=== PATIENT | female | born 1975 | race Caucasian/White ===

== ENCOUNTER 2023-10-23 10:30 | Outpatient (OUT) | payer OTHER, SELFPAY ==
[2023-10-23 10:55] LABS: SARS-CoV-2 Ag NEGATIVE (NEGATIVE)
== END 2023-10-23 10:31 ==
LOC: LAB 10-28 11:28
PROVIDERS: PCP Family Medicine; Visit Provider Family Medicine
DX: J20.9 Acute bronchitis, unspecified (principal)
CPT/HCPCS: 87635; 87811

== ENCOUNTER 2023-11-30 14:44 | Outpatient (OUT) | payer OTHER, SELFPAY ==
[2023-11-30 15:06] LABS: Basophils Percent Auto 0.5 % (0.2-2.0); Eosinophils Absolute Auto 0.1 10^3/uL (0.0-0.7); Eosinophils Percent Auto 1.2 % (0.9-7.0); Hematocrit 49.1 % (36.0-48.0); Hemoglobin 16.1 g/dL (12.0-16.0); Immature Granulocytes Abs Auto 0.03 10^3/uL (0.00-0.03); Immature Granulocytes Pct Auto 0.4 % (0.0-0.5); Lymphocytes Absolute Auto 2.7 10^3/uL (1.2-3.8); Lymphocytes Percent Auto 36.5 % (20.5-60.0); Mean Corpuscular HGB Conc 32.8 g/dL (29.9-35.2); Mean Corpuscular Hemoglobin 31.9 pg (26.7-34.0); Mean Corpuscular Volume 97.2 fL (81.0-99.0); Mean Platelet Volume 11.1 fL (9.5-13.5); Monocytes Absolute Auto 0.6 10^3/uL (0.3-0.8); Monocytes Percent Auto 7.7 % (1.7-12.0); Neutrophils Percent Auto 53.7 % (43.0-75.0); Platelet Count 142 10^3/uL (150-450); Red Blood Count 5.05 10^6/uL (4.20-5.40); Red Cell Distribution Width 13.2 % (11.0-15.0); White Blood Count 7.5 10^3/uL (4.0-11.0)
[2023-11-30 15:30] LABS: Estimated Average Glucose 120 mg/dL; Glycohemoglobin A1C 5.8 % (4.5-6.2)
[2023-11-30 15:36] LABS: Alanine Aminotransferase 43 U/L (14-59); Albumin Globulin Ratio 0.9; Albumin Level 3.5 g/dL (3.4-5.0); Alkaline Phosphatase 74 U/L (46-116); Anion Gap 13.4; Aspartate Amino Transferase 19 U/L (15-37); BUN Creatinine Ratio 24.5; Bilirubin Total 0.3 mg/dL (0.2-1.0); Calcium 8.9 mg/dL (8.5-10.1); Carbon Dioxide 26.1 mmol/L (21.0-32.0); Chloride 103 mmol/L (98-107); Chol HDL Ratio 4.5; Cholesterol 143 mg/dL (<=200); Estimated GFR (African America >60 (>=60); Estimated GFR (Non-African Ame 57 (>=60); Free T3 1.53 pg/mL (2.18-3.98); Globulin 4.1 g/dL; Glucose 82 mg/dL (74-106); HDL Cholesterol 32 mg/dL (40-60); Potassium 4.5 mmol/L (3.5-5.1); Sodium 138 mmol/L (136-145); Thyroid Stimulating Hormone 3.211 uIU/mL (0.358-3.740); Total Protein 7.6 g/dL (6.4-8.2); Triglycerides 220 mg/dL (<=150)
== END 2023-11-30 14:45 | disposition home or self-care (01) ==
PROVIDERS: PCP Family Medicine; Visit Provider Family Medicine
DX: Z00.00 Encounter for general adult medical examination without abnormal findings (principal)
CPT/HCPCS: 36415; 80053; 80061; 83036; 84436; 84443; 84481; 85025

== ENCOUNTER 2023-12-03 10:21 | Outpatient (REF) | payer OTHER, SELFPAY ==
--- OUTSIDE RECORDS SUMMARY | 2023-12-04 10:42 | XMS_ITS | CCD ---
Author Name Unknown Address [address] [place] [address] Organization [facility] Care Team Providers Care Optical Glass Etcher Name Role Phone Unavailable Unavailable Rocío Maza Unavailable Sukh Anderson Referring Unavailable Sukh Anderson Attending Unavailable Dr. Rocío Maza Primary Care Unavail able DAYNA PICKARD Primary Care Unavailable DAYNA PICKARD Consulting Unavailable DAYNA PICKARD Attending Unavailable DAYNA PICKARD Admitting Unavailable HOY ., DR ALFORD Consulting Unavailable HOY ., DR ALFORD Admitting Unavailable HOY ., DR ALFORD Attending Unavailable HOY ., DR ALFORD Primary Care Unavailable ZIEBSAMANTHA, DR MARY KATE Hernandez Consulting Unavailable HOY ., DR ALFORD Primary Care Unavailable HOY ., DR ALFORD Consulting Unavailable HOY ., DR ALFORD Attending Unavailable HOY ., DR ALFORD Admstephanie Unavailable HOY ., DR ALFORD Consulting Unavailable HOY ., DR ALFORD Admstephanie Unavailable HOY ., DR ALFORD Attending Unavailable HOY ., DR ALFORD Primary Care Unavailable HOY ., DR ALFORD Consulting Unavailable HOY ., DR ALFORD Attending Unavailable HOY ., DR ALFORD Admstephanie Unavailable HOY ., DR ALFORD Primary Care Unavailable HOY ., DR ALFORD Consulting Unavailable DAYNA PICKARD Primary Care Unavailable HOY ., DR ALFORD Admitting Unavailable HOY ., DR ALFORD Attending Unavailable ZIEBER, DR MARY KATE Hernandez Consulting Unavailable HAY ., DR MCLEAN Consulting Unavailable SHAIKH Tai DANG Consulting Unavailable KRYS DALLAS Consulting Unavailable ANJEL ., DR ALFORD Primary Care Unavailable HOY ., DR ALFORD Consulting Unavailable HOY ., DR ALFORD Attending Unavailable HOY ., DR ALFORD Admitting Unavailable HOY ., DR ALFORD Primary Care Unavailable ANJEL ., DR ALFORD Consulting Unavailable ANJEL ., DR ALFORD Attending Unavailable ANJEL ., DR ALFORD Admitting Unavailable ANJEL ., DR ALFORD Consulting Unavailable ANJEL ., DR ALFORD Admitting Unavailable ANJEL ., DR ALFORD Attending Unavailable ANJEL ., DR ALFORD Primary Care Unavailable Medications Completed/Discontinued Medications Medication Drug Class(es) Dates Sig (Normalized) Sig (Original) aspirin 81 mg delayed release oral tablet (20 sources) Platelet Aggregation Inhibitor, Nonsteroidal Anti-inflammator y Drug Start: 1 take 1 tablet by mouth once daily Aspirin Low Dose 81 MG Oral Tablet Delayed Release Take 1 tablet daily Quantity: 90 Refills: 3 Ordered: 28-Jan-2023 Tiffany Shelby MD Start : 07-Nov-2021 Active atorvastatin 80 mg oral tablet (6 sources) HMG-CoA Reductase Inhibitor Start: 1 take 1 tablet by mouth once daily Atorvastatin Calcium 80 MG Oral Tablet TAKE 1 TABLET BY MOUTH EVERY NIGHT Quantity: 30 Refills: 0 Ordered: 30-Jan-2022 DO Start : 04-Sep-2021 Active citalopram 20 mg oral tablet (6 sources) Serotonin Reuptake Inhibitor Start: 2 take 1 tablet by mouth once daily Citalopram Hydrobromide 20 MG Oral Tablet TAKE 1 TABLET BY MOUTH ONCE DAILY Quantity: 30 Refills: 0 Ordered: 28-Feb-2022 DO Start : 01-Jan-2022 Active clopidogrel 75 mg oral tablet (7 sources) P2Y12 Platelet Inhibitor Start: 1 take 1 tablet by mouth once daily Clopidogrel Bisulfate 75 MG Oral Tablet TAKE 1 TABLET BY MOUTH ONCE DAILY *EMERGENCY REFILL* Quantity: 90 Refills: 0 Ordered: 28-Oct-2022 Sukh Anderson DO Start : 03-Sep-2021 Active hydroCHLOROthiazide 25 mg oral tablet (6 sources) Thiazide Diuretic Start: 2 take 1 tablet by mouth once daily hydroCHLOROthiazide 25 MG Oral Tablet TAKE 1 TABLET DAILY. Quantity: 90 Refills: 3 Ordered: 01-Apr-2022 DO Start : 01-Apr-2022 Active lisinopril 40 mg oral tablet (12 sources) Angiotensin Converting Enzyme Inhibitor Start: 1 take 1 tablet by mouth once daily Lisinopril 40 MG Oral Tablet take 1 tablet by mouth once daily Quantity: 90 Refills: 3 Ordered: 30-Dec-2022 Sukh Anderson DO Start : 03-Sep-2021 Active pantoprazole 40 mg delayed release oral tablet (6 sources) Proton Pump Inhibitor Start: 2 take 1 tablet by mouth once daily Pantoprazole Sodium 40 MG Oral Tablet Delayed Release TAKE 1 TABLET DAILY. Quantity: 90 Refills: 3 Ordered: 01-Apr-2022 DO Start : 01-Apr-2022 Active varenicline 0.5 mg oral tablet (6 sources) Partial Cholinergic Nicotinic Agonist Chantix 0.5 MG TABS TAKE 1 TABLET DAILY. Quantity: 0 Refills: 0 Ordered: 18-Dec-2022 DO Active Problems Active Problems Problem Classification Problem Date Documented Date Episodic/Chronic Allergic reactions (13 sources) H/O: Disorder; Translations: [Personal history of allergy to other specified medicinal agents] Episodic Anxiety disorders (13 sources) Anxiety; Translations: [Anxiety state, unspecified] Chronic Coronary atherosclerosis and other heart disease (20 sources) Coronary arteriosclerosis; Translations: [Coronary atherosclerosis of unspecified type of vessel, [place] or graft] Chronic Deficiency and other anemia (1 source) Anemia, unspecified; Translations: [ANEMIA UNSPECIFIED] Onset: 3 Episodic Diabetes mellitus without complication (1 source) Type 2 diabetes mellitus without complications; Translations: [TYPE 2 DM WITHOUT COMPLICATIONS] Onset: 3 Chronic Disorders of lipid metabolism (14 sources) Hyperlipidemia; Translations: [Other and unspecified hyperlipidemia] Onset: 2 Chronic E Codes: Adverse effects of medical drugs (2 sources) Adverse effect of carbonic-anhydrase inhibitors, benzothiadiazides and other diuretics, initial encounter; Translations: [Adverse effect of other drugs, medicaments and biological substances, initial encounter] Onset: 3 Episodic Essential hypertension (14 sources) Hypertensive disorder; Translations: [Unspecified essential hypertension] Onset: 3 Chronic Fluid and electrolyte disorders (4 sources) Hypokalemia; Translations: [HYPOKALEMIA] Onset: 3 Episodic Malaise and fatigue (1 source) Other fatigue; Translations: [OTHER FATIGUE] Onset: 3 Episodic Nutritional deficiencies (1 source) Vitamin D deficiency, unspecified; Translations: [VITAMIN D DEFICIENCY UNSPECIFIED] Onset: 2 Chronic Other aftercare (1 source) residential (current) use of aspirin; Translations: [BELTING INSPECTOR CURRENT USE OF ASPIRIN] Onset: 3 Episodic Other aftercare (1 source) Other joint terminal attack controller (current) drug therapy; Translations: [OTH RESIDENTIAL CURRENT DRUG THERAPY] Onset: 3 Episodic Other aftercare (1 source) long term care pharmacist (current) use of oral hypoglycemic drugs; Translations: [BELTING INSPECTOR USE ORAL HYPOGLYCEMIC DX] Onset: 3 Episodic Other connective tissue disease (1 source) Muscle weakness (generalized); Translations: [MUSCLE WEAKNESS GENERALIZED] Onset: 3 Episodic Other lower respiratory disease (1 source) Personal history of pneumonia (recurrent); Translations: [PERSONAL HX OF PNEUMONIA RECURRENT] Onset: 3 Episodic Other nutritional; endocrine; and metabolic disorders (13 sources) Obesity; Translations: [Obesity, unspecified] Chronic Other nutritional; endocrine; and metabolic disorders (1 source) Hypomagnesemia; Translations: [HYPOMAGNESEMIA] Onset: 3 Chronic Other nutritional; endocrine; and metabolic disorders (1 source) Obesity, unspecified; Translations: [OBESITY UNSPECIFIED] Onset: 3 Chronic Other nutritional; endocrine; and metabolic disorders (1 source) Body mass index (BMI) 33.0-33.9, adult; Translations: [BODY MASS INDEX BMI 33.0-33.9 ADULT] Onset: 3 Chronic Residual codes; unclassified (4 sources) Pain, unspecified; Translations: [PAIN UNSPECIFIED] Onset: 3 Episodic Substance-related disorders (7 sources) Smokes tobacco daily; Translations: [Tobacco use disorder] Onset: 3 Chronic Comment on above: 1/ PPD; Unclassified (4 sources) CONTACT W/AND (SUSP) EXPOS COVID-19; Translations: [CONTACT W/AND (SUSP) EXPOS COVID-19] Onset: 2 Unclassified (3 sources) COUGH, UNSPECIFIED; Translations: [COUGH, UNSPECIFIED] Onset: 2 Past or Other Problems Problem Classification Problem Date Documented Da te Episodic/Chronic Other non-traumatic joint disorders (4 sources) Pain in left hip; Translations: [PAIN IN LEFT HIP] Onset: 10-09-2022 Episodic Other non-traumatic joint disorders (1 source) Pain in right hip; Translations: [PAIN IN RIGHT HIP] Onset: 10-16-2022 Episodic Other screening for suspected conditions (not mental disorders or infectious disease) (1 source) Encounter for screening for malignant neoplasm of rectum; Translations: [ENC SCREEN MALIG NEOPLASM RECTUM] Onset: 09-20-2022 Episodic Unclassified (1 source) CONTACT W/AND (SUSP) EXPOS COVID-19; Translations: [CONTACT W/AND (SUSP) EXPOS COVID-19] Onset: 06-16-2022 Unclassified (1 source) COUGH, UNSPECIFIED; Translations: [COUGH, UNSPECIFIED] Onset: 05-05-2022 Results Test Name Value Interpretation Reference Range Facility MAGNESIUMon 02-23-2023 Magnesium [Mass/Vol] 2.2 mg/dL Normal 1.8-2.4 [facility] Comment on above: Performed By: #### M Alvin, CMP #### [facility] [address] [address] [address] Alysa Martinez PROF 14(COMP METB)on 023 Albumin [Mass/Vol] 3.2 g/dL Critically low 3.4-5.[address] [facility] Comment on above: Performed By: #### M Alvin, CMP #### [facility] [address] [address] [address] Alysa Martinez Albumin/Globulin [Mass ratio] 0.8 {ratio} Normal [facility] Comment on above: Performed By: #### M Alvin, CMP #### [facility] [address] [address] [address] Alysa Martinez ALP [Catalytic activity/Vol] 74 U/L Normal 46-116 [facility] Comment on above: Performed By: #### M G, CMP #### [facility] [address] [address] [address] Alysa Martinez ALT [Catalytic activity/Vol] 43 U/L Normal 14-59 [facility] Comment on above: Performed By: #### M Alvin, CMP #### [facility] [address] [address] [address] Alysa Martinez Anion gap [Moles/Vol] 10.9 mmol/L Normal [facility] Comment on above: Performed By: #### M G, CMP #### [facility] [address] [address] [address] Alysa Martinez AST [Catalytic activity/Vol] 22 U/L Normal 15-37 [facility] Comment on above: Performed By: #### M G, CMP #### [facility] [address] [address] [address] Alysa Martinez Bilirubin [Mass/Vol] 0.3 mg/dL Normal 0.2-1.0 [facility] Comment on above: Performed By: #### M G, CMP #### [facility] [address] [place] [address] Dr. Alysa Martinez Calcium [Mass/Vol] 8.6 mg/dL Normal 8.5-10.1 [facility] Comment on above: Performed By: #### M G, CMP #### [facility] [address] [address] [address] Alysa Martinez Chloride [Moles/Vol] 102 mmol/L Normal 98-107 [facility] Comment on above: Performed By: #### M G, CMP #### [facility] [address] [place] [address] Dr. Alysa Martinez CO2 [Moles/Vol] 30.0 mmol/L Normal 21.0-32.0 [facility] Comment on above: Performed By: #### M G, CMP #### [facility] [address] [place] [address] Dr. Alysa Martinez Creatinine [Mass/Vol] 0.89 mg/dL Normal 0.55-1.02 [facility] Comment on above: Performed By: #### M G, CMP #### [facility] [address] [place] [address] Dr. Alysa Martinez EGFR-AF QATARI >60 Normal >=60 [facility] Comment on above: Performed By: #### M G, CMP #### [facility] [address] [address] [address] Alysa Martinez EGFR-NON AF QATARI >60 Normal >=60 [facility] Comment on above: Performed By: #### M G, CMP #### [facility] [address] [address] [address] Alysa Martinez Globulin (S) [Mass/Vol] 4.0 g/dL Normal [facility] Comment on above: Performed By: #### M G, CMP #### [facility] [address] [address] [address] Alysa Martinez Glucose [Mass/Vol] 144 mg/dL Critically high 74-106 [facility] Comment on above: Performed By: #### M G, CMP #### [facility] [address] [address] [address] Alysa Martinez Potassium [Moles/Vol] 3.9 mmol/L Normal 3.5-5.1 [facility] Comment on above: Performed By: #### M G, CMP #### [facility] [address] [place] [address] Dr. Alysa Martinez Protein [Mass/Vol] 7.2 g/dL Normal 6.4-8.2 [facility] Comment on above: Performed By: #### M G, CMP #### [facility] [address] [address] [address] Alysa Martinez Sodium [Moles/Vol] 139 mmol/L Normal 136-145 [facility] Comment on above: Performed By: #### M G, CMP #### [facility] [address] [place] [address] Dr. Alysa Martinez Urea nitrogen [Mass/Vol] 14.0 mg/dL Normal 7.0-18.0 [facility] Comment on above: Performed By: #### M G, CMP #### [facility] [address] [place] [address] Dr. Alysa Martinez Urea nitrogen/Creatinine [Mass ratio] 15.7 mg/mg Normal [facility] Comment on above: Performed By: #### M G, CMP #### [facility] [address] [address] [address] Alysa Martinez MAGNESIUMon 02-16-2023 Magnesium [Mass/Vol] 2.1 mg/dL Normal 1.8-2.4 [facility] Comment on above: Performed By: #### M G, CMP #### [facility] [address] [address] [address] Alysa Martinez PROF 14(COMP METB)on 023 Albumin [Mass/Vol] 3.3 g/dL Critically low 3.4-5.0 [facility] Comment on above: Performed By: #### P HOS, BMP, MG #### [facility] [address] [place] [address] Dr. Alysa Martinez Albumin/Globulin [Mass ratio] 0.8 {ratio} Normal [facility] Comment on above: Performed By: #### P HOS, BMP, MG #### [facility] [address] [place] [address] Dr. Alysa Martinez ALP [Catalytic activity/Vol] 74 U/L Normal 46-116 [facility] Comment on above: Performed By: #### P HOS, BMP, MG #### [facility] [address] [address] [address] Alysa Martinez ALT [Catalytic activity/Vol] 46 U/L Normal 14-59 [facility] Comment on above: Performed By: #### P HOS, BMP, MG #### [facility] [address] [address] [address] Alysa Martinez Anion gap [Moles/Vol] 12.4 mmol/L Normal [facility] Comment on above: Performed By: #### P HOS, BMP, MG #### [facility] [address] [address] [address] Alysa Martinez AST [Catalytic activity/Vol] 21 U/L Normal 15-37 [facility] Comment on above: Performed By: #### P HOS, BMP, MG #### [facility] [address] [place] [address] Dr. Alysa Martinez Bilirubin [Mass/Vol] 0.3 mg/dL Normal 0.2-1.0 [facility] Comment on above: Performed By: #### P HOS, BMP, MG #### [facility] [address] [place] [address] Dr. lAysa Martinez Calcium [Mass/Vol] 9.2 mg/dL Normal 8.5-10.1 [facility] Comment on above: Performed By: #### P HOS, BMP, MG #### [facility] [address] [place] [address] Dr. Alysa Martinez Chloride [Moles/Vol] 100 mmol/L Normal 98-107 [facility] Comment on above: Performed By: #### P HOS, BMP, MG #### [facility] [address] [place] [address] Dr. Alysa Martinez CO2 [Moles/Vol] 30.9 mmol/L Normal 21.0-32.0 [facility] Comment on above: Performed By: #### P HOS, BMP, MG #### [facility] [address] [place] [address] Dr. Alysa Martinez Creatinine [Mass/Vol] 0.98 mg/dL Normal 0.55-1.02 [facility] Comment on above: Performed By: #### P HOS, BMP, MG #### [facility] [address] [place] [address] Dr. Alysa Martinez EGFR-AF QATARI >60 Normal >=60 [facility] Comment on above: Performed By: #### P HOS, BMP, MG #### [facility] [address] [place] [address] Dr. Alysa Martinez EGFR-NON AF QATARI 60 mL/min/1.73m2 Normal >=60 [facility] Comment on above: Performed By: #### P HOS, BMP, MG #### [facility] [address] [place] [address] Dr. Alysa Martinez Globulin (S) [Mass/Vol] 3.9 g/dL Normal [facility] Comment on above: Performed By: #### P HOS, BMP, MG #### [facility] [address] [place] [address] Dr. Alysa Martinez Glucose [Mass/Vol] 106 mg/dL Normal 74-106 [facility] Comment on above: Performed By: #### P HOS, BMP, MG #### [facility] [address] [place] [address] Dr. Alysa Martinez Potassium [Moles/Vol] 4.3 mmol/L Normal 3.5-5.1 [facility] Comment on above: Performed By: #### P HOS, BMP, MG #### [facility] [address] [address] [address] Alysa Martinez Protein [Mass/Vol] 7.2 g/dL Normal 6.4-8.2 [facility] Comment on above: Performed By: #### P HOS, BMP, MG #### [facility] [address] [place] [address] Dr. Alysa Martinez Sodium [Moles/Vol] 139 mmol/L Normal 136-145 [facility] Comment on above: Performed By: #### P HOS, BMP, MG #### [facility] [address] [place] [address] Dr. Alysa Martinez Urea nitrogen [Mass/Vol] 15.0 mg/dL Normal 7.0-18.0 [facility] Comment on above: Performed By: #### P HOS, BMP, MG #### [facility] [address] [place] [address] Dr. Alysa Martinez Urea nitrogen/Creatinine [Mass ratio] 15.3 mg/mg Normal [facility] Comment on above: Performed By: #### P HOS, BMP, MG #### [facility] [address] [place] [address] Dr. Alysa Martinez MAGNESIUMon 02-02-2023 Magnesium [Mass/Vol] 1.5 mg/dL Critically low 1.8-2.4 [facility] Comment on above: Performed By: #### R F #### [facility] [address] [place] [address] Dr. Alysa Martinez PROF 14(COMP METB)on 023 Albumin [Mass/Vol] 3.4 g/dL Normal 3.4-5.0 [facility] Comment on above: Performed By: #### R F #### [facility] [address] [place] [address] Dr. Alysa Martinez Albumin/Globulin [Mass ratio] 0.8 {ratio} Normal [facility] Comment on above: Performed By: #### R F #### [facility] [address] [place] [address] Dr. Alysa Martinez ALP [Catalytic activity/Vol] 77 U/L Normal 46-116 [facility] Comment on above: Performed By: #### R F #### [facility] [address] [place] [address] Dr. Alysa Martinez ALT [Catalytic activity/Vol] 37 U/L Normal 14-59 [facility] Comment on above: Performed By: #### R F #### [facility] [address] [place] [address] Dr. Alysa Martinez Anion gap [Moles/Vol] 12.5 mmol/L Normal [facility] Comment on above: Performed By: #### R F #### [facility] [address] [place] [address] Dr. Alysa Martinez AST [Catalytic activity/Vol] 19 U/L Normal 15-37 [facility] Comment on above: Performed By: #### R F #### [facility] [address] [place] [address] Dr. Alysa Martinez Bilirubin [Mass/Vol] 0.3 mg/dL Normal 0.2-1.0 [facility] Comment on above: Performed By: #### R F #### [facility] [address] [place] [address] Dr. Alysa Martinez Calcium [Mass/Vol] 9.5 mg/dL Normal 8.5-10.1 [facility] Comment on above: Performed By: #### R F #### [facility] [address] [place] [address] Dr. Alysa Martinez Chloride [Moles/Vol] 100 mmol/L Normal 98-107 [facility] Comment on above: Performed By: #### R F #### [facility] [address] [address] [address] Alysa Martinez CO2 [Moles/Vol] 26.8 mmol/L Normal 21.0-32.0 [facility] Comment on above: Performed By: #### R F #### [facility] [address] [place] [address] Dr. Alysa Martinez Creatinine [Mass/Vol] 1.15 mg/dL Critically high 0.55-1.02 [facility] Comment on above: Performed By: #### R F #### [facility] [address] [place] [address] Dr. Alysa Martinez EGFR-AF QATARI >60 Normal >=60 [facility] Comment on above: Performed By: #### R F #### [facility] [address] [place] [address] Dr. Alysa Martinez EGFR-NON AF QATARI 50 mL/min/1.73m2 Critically low >=60 [facility] Comment on above: Performed By: #### R F #### [facility] [address] [place] [address] Dr. Alysa Martinez Globulin (S) [Mass/Vol] 4.1 g/dL Normal [facility] Comment on above: Performed By: #### R F #### [facility] [address] [place] [address] Dr. Alysa Martinez Glucose [Mass/Vol] 128 mg/dL Critically high 74-106 [facility] Comment on above: Performed By: #### R F #### [facility] [address] [place] [address] Dr. Alysa Martinez Potassium [Moles/Vol] 4.3 mmol/L Normal 3.5-5.1 [facility] Comment on above: Performed By: #### R F #### [facility] [address] [place] [address] Dr. Alysa Martinez Protein [Mass/Vol] 7.5 g/dL Normal 6.4-8.2 [facility] Comment on above: Performed By: #### R F #### [facility] [address] [place] [address] Dr. Alysa Martinez Sodium [Moles/Vol] 135 mmol/L Critically low 136-[address] [facility] Comment on above: Performed By: #### R F #### [facility] [address] [place] [address] Dr. Alysa Martinez Urea nitrogen [Mass/Vol] 26.0 mg/dL Critically high 7.0-18.0 [facility] Comment on above: Performed By: #### R F #### [facility] [address] [place] [address] Dr. Alysa Martinez Urea nitrogen/Creatinine [Mass ratio] 22.6 mg/mg Normal [facility] Comment on above: Performed By: #### R F #### [facility] [address] [place] [address] Dr. Alysa Martinez MAGNESIUMon 01-23-2023 Magnesium [Mass/Vol] 2.6 mg/dL Critically high 1.8-2.4 [facility] Comment on above: Performed By: #### M G, CMP #### [facility] [address] [place] [address] Dr. Alysa Martinez PROF 14(COMP METB)on 023 Albumin [Mass/Vol] 3.6 g/dL Normal 3.4-5.0 [facility] Comment on above: Performed By: #### M G, CMP #### [facility] [address] [place] [address] Dr. Alysa Martinez Albumin/Globulin [Mass ratio] 0.9 {ratio} Normal [facility] Comment on above: Performed By: #### M G, CMP #### [facility] [address] [place] [address] Dr. Alysa Martinez ALP [Catalytic activity/Vol] 79 U/L Normal 46-116 [facility] Comment on above: Performed By: #### M G, CMP #### [facility] [address] [place] [address] Dr. Alysa Martinez ALT [Catalytic activity/Vol] 35 U/L Normal 14-59 [facility] Comment on above: Performed By: #### M G, CMP #### [facility] [address] [address] [address] Alysa Martinez Anion gap [Moles/Vol] 13.4 mmol/L Normal [facility] Comment on above: Performed By: #### M G, CMP #### [facility] [address] [address] [address] Alysa Martinez AST [Catalytic activity/Vol] 18 U/L Normal 15-37 [facility] Comment on above: Performed By: #### M G, CMP #### [facility] [address] [address] [address] Alysa Martinez Bilirubin [Mass/Vol] 0.2 mg/dL Normal 0.2-1.0 [facility] Comment on above: Performed By: #### M G, CMP #### [facility] [address] [place] [address] Dr. Alysa Martinez Calcium [Mass/Vol] 8.9 mg/dL Normal 8.5-10.1 [facility] Comment on above: Performed By: #### M G, CMP #### [facility] [address] [place] [address] Dr. Alysa Martinez Chloride [Moles/Vol] 98 mmol/L Normal 98-107 [facility] Comment on above: Performed By: #### M G, CMP #### [facility] [address] [place] [address] Dr. Alysa Martinez CO2 [Moles/Vol] 27.6 mmol/L Normal 21.0-32.0 [facility] Comment on above: Performed By: #### M G, CMP #### [facility] [address] [place] [address] Dr. Alysa Martinez Creatinine [Mass/Vol] 0.86 mg/dL Normal 0.55-1.02 [facility] Comment on above: Performed By: #### M G, CMP #### [facility] [address] [place] [address] Dr. Alysa Martinez EGFR-AF QATARI >60 Normal >=60 [facility] Comment on above: Performed By: #### M G, CMP #### [facility] [address] [address] [address] Alysa Martinez EGFR-NON AF QATARI >60 Normal >=60 [facility] Comment on above: Performed By: #### M G, CMP #### [facility] [address] [address] [address] Alysa Martinez Globulin (S) [Mass/Vol] 4.0 g/dL Normal [facility] Comment on above: Performed By: #### M G, CMP #### [facility] [address] [address] [address] Alysa Martinez Glucose [Mass/Vol] 112 mg/dL Critically high 74-106 [facility] Comment on above: Performed By: #### M G, CMP #### [facility] [address] [address] [address] Alysa Martinez Potassium [Moles/Vol] 5.0 mmol/L Normal 3.5-5.1 [facility] Comment on above: Performed By: #### M G, CMP #### [facility] [address] [place] [address] Dr. Alysa Martinez Protein [Mass/Vol] 7.6 g/dL Normal 6.4-8.2 [facility] Comment on above: Performed By: #### M G, CMP #### [facility] [address] [place] [address] Dr. Alysa Martinez Sodium [Moles/Vol] 134 mmol/L Critically low 136-[address] [facility] Comment on above: Performed By: #### M G, CMP #### [facility] [address] [place] [address] Dr. Alysa Martinez Urea nitrogen [Mass/Vol] 17.0 mg/dL Normal 7.0-18.0 [facility] Comment on above: Performed By: #### M G, CMP #### [facility] [address] [place] [address] Dr. Alysa Martinez Urea nitrogen/Creatinine [Mass ratio] 19.8 mg/mg Normal [facility] Comment on above: Performed By: #### M G, CMP #### [facility] [address] [place] [address] Dr. Alysa Martinez MAGNESIUMon 01-16-2023 Magnesium [Mass/Vol] 1.7 mg/dL Critically low 1.8-2.4 [facility] Comment on above: Performed By: #### R F #### [facility] [address] [place] [address] Dr. Alysa Martinez PROF 14(COMP METB)on 023 Albumin [Mass/Vol] 3.1 g/dL Critically low 3.4-5.0 [facility] Comment on above: Performed By: #### R F #### [facility] [address] [place] [address] Dr. Alysa Martinez Albumin/Globulin [Mass ratio] 0.9 {ratio} Normal [facility] Comment on above: Performed By: #### R F #### [facility] [address] [place] [address] Dr. Alysa Martinez ALP [Catalytic activity/Vol] 69 U/L Normal 46-116 [facility] Comment on above: Performed By: #### R F #### [facility] [address] [place] [address] Dr. Alysa Martinez ALT [Catalytic activity/Vol] 46 U/L Normal 14-59 [facility] Comment on above: Performed By: #### R F #### [facility] [address] [place] [address] Dr. Alysa Martinez Anion gap [Moles/Vol] 10.0 mmol/L Normal [facility] Comment on above: Performed By: #### R F #### [facility] [address] [place] [address] Dr. Alysa Martinez AST [Catalytic activity/Vol] 29 U/L Normal 15-37 [facility] Comment on above: Performed By: #### R F #### [facility] [address] [place] [address] Dr. Alysa Martinez Bilirubin [Mass/Vol] 0.3 mg/dL Normal 0.2-1.0 [facility] Comment on above: Performed By: #### R F #### [facility] [address] [address] [address] Alysa Martinez Calcium [Mass/Vol] 8.9 mg/dL Normal 8.5-10.1 [facility] Comment on above: Performed By: #### R F #### [facility] [address] [address] [address] Alysa Martinez Chloride [Moles/Vol] 103 mmol/L Normal 98-107 [facility] Comment on above: Performed By: #### R F #### [facility] [address] [place] [address] Dr. Alysa Martinez CO2 [Moles/Vol] 32.5 mmol/L Critically high 21.0-32.0 [facility] Comment on above: Performed By: #### R F #### [facility] [address] [place] [address] Dr. Alysa Martinez Creatinine [Mass/Vol] 0.85 mg/dL Normal 0.55-1.02 [facility] Comment on above: Performed By: #### R F #### [facility] [address] [place] [address] Dr. Alysa Martinez EGFR-AF QATARI >60 Normal >=60 [facility] Comment on above: Performed By: #### R F #### [facility] [address] [place] [address] Dr. Alysa Martinez EGFR-NON AF QATARI >60 Normal >=60 [facility] Comment on above: Performed By: #### R F #### [facility] [address] [address] [address] Alysa Martinez Globulin (S) [Mass/Vol] 3.5 g/dL Normal [facility] Comment on above: Performed By: #### R F #### [facility] [address] [place] [address] Dr. Alysa Martinez Glucose [Mass/Vol] 97 mg/dL Normal 74-106 [facility] Comment on above: Performed By: #### R F #### [facility] [address] [place] [address] Dr. Alysa Martinez Potassium [Moles/Vol] 3.5 mmol/L Normal 3.5-5.1 [facility] Comment on above: Performed By: #### R F #### [facility] [address] [place] [address] Dr. Alysa Martinez Protein [Mass/Vol] 6.6 g/dL Normal 6.4-8.2 [facility] Comment on above: Performed By: #### R F #### [facility] [address] [address] [address] Alysa Martinez Sodium [Moles/Vol] 142 mmol/L Normal 136-145 [facility] Comment on above: Performed By: #### R F #### [facility] [address] [place] [address] Dr. Alysa Martinez Urea nitrogen [Mass/Vol] 12.0 mg/dL Normal 7.0-18.0 [facility] Comment on above: Performed By: #### R F #### [facility] [address] [place] [address] Dr. Alysa Martinez Urea nitrogen/Creatinine [Mass ratio] 14.1 mg/mg Normal [facility] Comment on above: Performed By: #### R F #### [facility] [address] [place] [address] Dr. Alysa Martinez CHLORIDE URINE RANDOMon 12-18 Chloride, Urine <20 Normal Not Estab. [facility] Comment on above: Performed By: #### P HOS, BMP, MG #### [facility] [address] [place], [place] [id number] Dr. Alysa Martinez MAGNESIUMon 01-13-2023 Magnesium [Mass/Vol] 2.1 mg/dL Normal 1.8-2.4 [facility] Comment on above: Performed By: #### R F #### [facility] [address] [place], [place] [id number] Dr. Alysa Martinez PHOSPHORUSon 01-13-2023 Phosphate [Mass/Vol] 3.7 mg/dL Normal 2.6-4.7 [facility] Comment on above: Performed By: #### R F #### [facility] [address] [address] [address] Alysa Martinez PROF CHEM 8 (BAS METB)on Anion gap [Moles/Vol] 12.3 mmol/L Normal [facility] Comment on above: Performed By: #### R F #### [facility] [address] [place] [address] Dr. Alysa Martinez Calcium [Mass/Vol] 7.6 mg/dL Critically low 8.5-10.1 [facility] Comment on above: Performed By: #### R F #### [facility] [address] [place] [address] Dr. Alysa Martinez Chloride [Moles/Vol] 106 mmol/L Normal 98-107 [facility] Comment on above: Performed By: #### R F #### [facility] [address] [place] [address] Dr. Alysa Martinez CO2 [Moles/Vol] 30.7 mmol/L Normal 21.0-32.0 [facility] Comment on above: Performed By: #### R F #### [facility] [address] [place] [address] Dr. Alysa Martinez Creatinine [Mass/Vol] 0.67 mg/dL Normal 0.55-1.02 [facility] Comment on above: Performed By: #### R F #### [facility] [address] [place] [address] Dr. Alysa Martinez EGFR-AF QATARI >60 Normal >=60 [facility] Comment on above: Performed By: #### R F #### [facility] [address] [place] [address] Dr. Alysa Martinez EGFR-NON AF QATARI >60 Normal >=60 [facility] Comment on above: Performed By: #### R F #### [facility] [address] [place] [address] Dr. Alysa Martinez Glucose [Mass/Vol] 125 mg/dL Critically high 74-106 [facility] Comment on above: Performed By: #### R F #### [facility] [address] [place] [address] Dr. Alysa Martinez Potassium [Moles/Vol] 3.0 mmol/L Critically low 3.5-5.1 [facility] Comment on above: Performed By: #### R F #### [facility] [address] [address] [address] Alysa Martinez Sodium [Moles/Vol] 146 mmol/L Critically high 136-145 [facility] Comment on above: Performed By: #### R F #### [facility] [address] [address] [address] Alysa Martinez Urea nitrogen [Mass/Vol] 9.0 mg/dL Normal 7.0-18.0 [facility] Comment on above: Performed By: #### R F #### [facility] [address] [place] [address] Dr. Alysa Martinez Urea nitrogen/Creatinine [Mass ratio] 13.4 mg/mg Normal [facility] Comment on above: Performed By: #### R F #### [facility] [address] [place] [address] Dr. Alysa Martinez Anion gap [Moles/Vol] 9.9 mmol/L Normal [facility] Comment on above: Performed By: #### B MP #### [facility] [address] [place] [address] Dr. Alysa Martinez Calcium [Mass/Vol] 7.5 mg/dL Critically low 8.5-10.1 [facility] Comment on above: Performed By: #### B MP #### [facility] [address] [place] [address] Dr. Alysa Martinez Chloride [Moles/Vol] 103 mmol/L Normal 98-107 [facility] Comment on above: Performed By: #### B MP #### [facility] [address] [place] [address] Dr. Alysa Martinez CO2 [Moles/Vol] 31.7 mmol/L Normal 21.0-32.0 [facility] Comment on above: Performed By: #### B MP #### [facility] [address] [place] [address] Dr. Alysa Martinez Creatinine [Mass/Vol] 0.75 mg/dL Normal 0.55-1.02 [facility] Comment on above: Performed By: #### B MP #### [facility] [address] [address] [address] Alysa Martinez EGFR-AF QATARI >60 Normal >=60 [facility] Comment on above: Performed By: #### B MP #### [facility] [address] [address] [address] Alysa Martinez EGFR-NON AF QATARI >60 Normal >=60 [facility] Comment on above: Performed By: #### B MP #### [facility] [address] [address] [address] Alysa Martinez Glucose [Mass/Vol] 189 mg/dL Critically high 74-106 [facility] Comment on above: Performed By: #### B MP #### [facility] [address] [address] [address] Alysa Martinez Potassium [Moles/Vol] 2.6 mmol/L Critically low 3.5-5.1 [facility] Comment on above: Performed By: #### B MP #### [facility] [address] [address] [address] Alysa Martinez Sodium [Moles/Vol] 143 mmol/L Normal 136-145 [facility] Comment on above: Performed By: #### B MP #### [facility] [address] [address] [address] Alysa Martinez Urea nitrogen [Mass/Vol] 8.0 mg/dL Normal 7.0-18.0 [facility] Comment on above: Performed By: #### B MP #### [facility] [address] [address] [address] Alysa Martinez Urea nitrogen/Creatinine [Mass ratio] 10.7 mg/mg Normal [facility] Comment on above: Performed By: #### B MP #### [facility] [address] [address] [address] Alysa Martinez CAROLINE by IFAon 01-12-2023 Antinuclear Antibodies, IFA Negative Normal [facility] Comment on above: Result Comment: Nega tive <1:80 Borderline 1:80 Positive >1:80 ICAP nomenclature: AC-0 For more information about Hep-2 cell patterns use ANApatterns.org, the official website for the International Consensus on Antinuclear Antibody (CAROLINE) Patterns (ICAP). Performed By: #### P HOS, BMP, MG #### [facility] [address] [place] [address] Dr. Alysa Martinez MAGNESIUMon 01-12-2023 Magnesium [Mass/Vol] 2.4 mg/dL Normal 1.8-2.4 [facility] Comment on above: Performed By: #### P HOS, BMP, MG #### [facility] [address] [place] [address] Dr. Alysa Martinez PHOSPHORUSon 01-12-2023 Phosphate [Mass/Vol] 3.2 mg/dL Normal 2.6-4.7 [facility] Comment on above: Performed By: #### P HOS, BMP, MG #### [facility] [address] [place] [address] Dr. Alysa Martinez PROF CHEM 8 (BAS METB)on Anion gap [Moles/Vol] 9.9 mmol/L Normal [facility] Comment on above: Performed By: #### P HOS, BMP, MG #### [facility] [address] [place] [address] Dr. Alysa Martinez Calcium [Mass/Vol] 7.7 mg/dL Critically low 8.5-10.[address] [facility] Comment on above: Performed By: #### P HOS, BMP, MG #### [facility] [address] [place] [address] Dr. Alysa Martinez Chloride [Moles/Vol] 100 mmol/L Normal 98-107 [facility] Comment on above: Performed By: #### P HOS, BMP, MG #### [facility] [address] [place] [address] Dr. Alysa Martinez CO2 [Moles/Vol] 33.4 mmol/L Critically high 21.0-32.0 [facility] Comment on above: Performed By: #### P HOS, BMP, MG #### [facility] [address] [address] [address] Alysa Martinez Creatinine [Mass/Vol] 0.69 mg/dL Normal 0.55-1.02 [facility] Comment on above: Performed By: #### P HOS, BMP, MG #### [facility] [address] [address] [address] Alysa Martinez EGFR-AF QATARI >60 Normal >=60 [facility] Comment on above: Performed By: #### P HOS, BMP, MG #### [facility] [address] [address] [address] Alysa Martinez EGFR-NON AF QATARI >60 Normal >=60 [facility] Comment on above: Performed By: #### P HOS, BMP, MG #### [facility] [address] [address] [address] Alysa Martinez Glucose [Mass/Vol] 140 mg/dL Critically high 74-106 [facility] Comment on above: Performed By: #### P HOS, BMP, MG #### [facility] [address] [address] [address] Alysa Martinez Potassium [Moles/Vol] 2.3 mmol/L Critically low 3.5-5.1 [facility] Comment on above: Performed By: #### P HOS, BMP, MG #### [facility] [address] [address] [address] Alysa Martinez Sodium [Moles/Vol] 142 mmol/L Normal 136-145 [facility] Comment on above: Performed By: #### P HOS, BMP, MG #### [facility] [address] [address] [address] Alysa Martinez Urea nitrogen [Mass/Vol] 8.0 mg/dL Normal 7.0-18.0 [facility] Comment on above: Performed By: #### P HOS, BMP, MG #### [facility] [address] [address] [address] Alysa Martinez Urea nitrogen/Creatinine [Mass ratio] 11.6 mg/mg Normal [facility] Comment on above: Performed By: #### P HOS, BMP, MG #### [facility] [address] [address] [address] Alysa Martinez Anion gap [Moles/Vol] 8.0 mmol/L Normal [facility] Comment on above: Performed By: #### P HOS, BMP, MG #### [facility] [address] [address] [address] Alysa Martinez Calcium [Mass/Vol] 7.8 mg/dL Critically low 8.5-10.[address] [facility] Comment on above: Performed By: #### P HOS, BMP, MG #### [facility] [address] [place] [address] Dr. Alysa Martinez Chloride [Moles/Vol] 100 mmol/L Normal 98-107 [facility] Comment on above: Performed By: #### P HOS, BMP, MG #### [facility] [address] [place] [address] Dr. Alysa Martinez CO2 [Moles/Vol] 37.5 mmol/L Critically high 21.0-32.0 [facility] Comment on above: Performed By: #### P HOS, BMP, MG #### [facility] [address] [place] [address] Dr. Alysa Martinez Creatinine [Mass/Vol] 0.67 mg/dL Normal 0.55-1.02 [facility] Comment on above: Performed By: #### P HOS, BMP, MG #### [facility] [address] [place] [address] Dr. Alysa Martinez EGFR-AF QATARI >60 Normal >=60 [facility] Comment on above: Performed By: #### P HOS, BMP, MG #### [facility] [address] [place] [address] Dr. Alysa Martinez EGFR-NON AF QATARI >60 Normal >=60 [facility] Comment on above: Performed By: #### P HOS, BMP, MG #### [facility] [address] [place] [address] Dr. Alysa Martinez Glucose [Mass/Vol] 130 mg/dL Critically high 74-106 [facility] Comment on above: Performed By: #### P HOS, BMP, MG #### [facility] [address] [address] [address] Alysa Martinez Potassium [Moles/Vol] 1.5 mmol/L Critically low 3.5-5.1 [facility] Comment on above: Performed By: #### P HOS, BMP, MG #### [facility] [address] [address] [address] Alysa Martinez Sodium [Moles/Vol] 144 mmol/L Normal 136-145 [facility] Comment on above: Performed By: #### P HOS, BMP, MG #### [facility] [address] [address] [address] Alysa Martinez Urea nitrogen [Mass/Vol] 9.0 mg/dL Normal 7.0-18.0 [facility] Comment on above: Performed By: #### P HOS, BMP, MG #### [facility] [address] [place] [address] Dr. Alysa Martinez Urea nitrogen/Creatinine [Mass ratio] 13.4 mg/mg Normal [facility] Comment on above: Performed By: #### P HOS, BMP, MG #### [facility] [address] [place] [address] Dr. Alysa Martinez US KIDNEYS BLADDERon 01-12-2 023 US KIDNEYS BLADDER EXAMINATION: US KIDNEYS BLADDER HISTORY: shortness of breath or wheezing ; abnormal lab values COMPARISON: CT abdomen pelvis 12/18/2020 TECHNIQUE: Ultrasound examination was performed of the kidneys and urinary bladder. FINDINGS: RIGHT KIDNEY: 2.4 cm benign-appearing cyst within superior pole; unchanged. No evidence of pelvocaliectasis, mass, or calculi. Normal renal cortical parenchymal echogenicity. Color Doppler demonstrates blood flow within the kidney. Kidney: 11.3 x 6.1 x 6.2 cm LEFT KIDNEY: No evidence of pelvocaliectasis, mass, or calculi. Normal renal cortical parenchymal echogenicity. Color Doppler demonstrates blood flow within the kidney. Kidney: 13.9 x 5.0 x 6.9 cm BLADDER: No visible wall thickening, mass, or calculi. Post void residual: 3.5 mL URETERAL JETS: Visualized bilaterally. IMPRESSION: 1. No acute or suspicious findings. No significant cortical thinning or chronic degenerative changes. 2. Stable, benign-appearing cyst within superior pole. Electronically authenticated by: MARY KATE ALVARENGA Date: 2023-01-12 10:59 Normal [facility] ANTISTREPTOLYSIN O AB (ASO)o n 01-11-2023 Antistreptolysin O Ab 81.7 IU/mL Normal 0.0-200.0 [facility] Comment on above: Performed By: #### P HOS, BMP, MG #### [facility] [address] [address] [address] Alysa Martinez CREATININE URINEon URINE CREAT 27.01 mg/dL Normal 20.00-300.00 [facility] Comment on above: Performed By: #### B MP #### [facility] [address] [place] [address] Dr. Alysa Martinez MAGNESIUMon 01-11-2023 Magnesium [Mass/Vol] 1.7 mg/dL Critically low 1.8-2.4 [facility] Comment on above: Performed By: #### P HOS, BMP, MG #### [facility] [address] [address] [address] Alysa Martinez Magnesium [Mass/Vol] 2.0 mg/dL Normal 1.8-2.4 [facility] Comment on above: Performed By: #### M G, CMP #### [facility] [address] [address] [address] Alysa Martinez Magnesium [Mass/Vol] 1.6 mg/dL Critically low 1.8-2.4 [facility] Comment on above: Performed By: #### P HOS, BMP, MG #### [facility] [address] [place] [address] Dr. Alysa Martinez PH URINEon 01-11-2023 pH (U) 6.0 [pH] Normal 5-9 [facility] Comment on above: Performed By: #### R F #### [facility] [address] [place] [address] Dr. Alysa Martinez PHOSPHORUSon 01-11-2023 Phosphate [Mass/Vol] 2.4 mg/dL Critically low 2.6-4.7 [facility] Comment on above: Performed By: #### P HOS, BMP, MG #### [facility] [address] [place] [address] Dr. Alysa Martinez POTASSIUMon 01-11-2023 Potassium [Moles/Vol] 1.6 mmol/L Critically low 3.5-5.1 [facility] Comment on above: Performed By: #### M G, CMP #### [facility] [address] [place] [address] Dr. Alysa Martinez POTASSIUM URINEon 01-11-2023 UR POTASSIUM 11.2 mmol/L Normal [facility] Comment on above: Performed By: #### P HOS, BMP, MG #### [facility] [address] [place] [address] Dr. Alysa Martinez PROF CHEM 8 (BAS METB)on Anion gap [Moles/Vol] 8.9 mmol/L Normal [facility] Comment on above: Performed By: #### P HOS, BMP, MG #### [facility] [address] [place] [address] Dr. Alysa Martinez Calcium [Mass/Vol] 7.4 mg/dL Critically low 8.5-10.1 [facility] Comment on above: Performed By: #### P HOS, BMP, MG #### [facility] [address] [place] [address] Dr. Alysa Martinez Chloride [Moles/Vol] 95 mmol/L Critically low 98-107 [facility] Comment on above: Performed By: #### P HOS, BMP, MG #### [facility] [address] [place] [address] Dr. Alysa Martinez CO2 [Moles/Vol] 36.6 mmol/L Critically high 21.0-32.0 [facility] Comment on above: Performed By: #### P HOS, BMP, MG #### [facility] [address] [place] [address] Dr. Alysa Martinez Creatinine [Mass/Vol] 0.96 mg/dL Normal 0.55-1.02 [facility] Comment on above: Performed By: #### P HOS, BMP, MG #### [facility] [address] [address] [address] Alysa Martinez EGFR-AF QATARI >60 Normal >=60 [facility] Comment on above: Performed By: #### P HOS, BMP, MG #### [facility] [address] [address] [address] Alysa Martinez EGFR-NON AF QATARI >60 Normal >=60 [facility] Comment on above: Performed By: #### P HOS, BMP, MG #### [facility] [address] [address] [address] Alysa Martinez Glucose [Mass/Vol] 215 mg/dL Critically high 74-106 [facility] Comment on above: Performed By: #### P HOS, BMP, MG #### [facility] [address] [address] [address] Alysa Martinez Potassium [Moles/Vol] 1.5 mmol/L Critically low 3.5-5.1 [facility] Comment on above: Performed By: #### P HOS, BMP, MG #### [facility] [address] [address] [address] Alysa Martinez Sodium [Moles/Vol] 138 mmol/L Normal 136-145 [facility] Comment on above: Performed By: #### P HOS, BMP, MG #### [facility] [address] [address] [address] Alysa Martinez Urea nitrogen [Mass/Vol] 12.0 mg/dL Normal 7.0-18.0 [facility] Comment on above: Performed By: #### P HOS, BMP, MG #### [facility] [address] [address] [address] Alysa Martinez Urea nitrogen/Creatinine [Mass ratio] 12.5 mg/mg Normal [facility] Comment on above: Performed By: #### P HOS, BMP, MG #### [facility] [address] [address] [address] Alysa Martinez RHEUMATOID FACTORon 03-26-20 23 RA Latex Turbid. 10.7 IU/mL Normal <14.0 [facility] Comment on above: Performed By: #### R F #### [facility] [address] [place] [address] Dr. Alysa Martinez SODIUM RANDOM URINEon 2022 Sodium (U) [Moles/Vol] 16 mmol/L Critically low 30-90 [facility] Comment on above: Performed By: #### P HOS, BMP, MG #### [facility] [address] [place] [address] Dr. Alysa Martinez UA RANDOMon 01-11-2023 Bilirubin Ql (U) Negative Normal NEGATIVE [facility] Comment on above: Performed By: #### P HOS, BMP, MG #### [facility] [address] [place] [address] Dr. Alysa Martinez Clarity (U) CLEAR Normal CLEAR [facility] Comment on above: Performed By: #### P HOS, BMP, MG #### [facility] [address] [place] [address] Dr. Alysa Martinez Color (U) LT. YELLOW Normal YELLOW [facility] Comment on above: Performed By: #### P HOS, BMP, MG #### [facility] [address] [place] [address] Dr. Alysa Martinez Glucose Ql (U) Negative Normal NEGATIVE [facility] Comment on above: Performed By: #### P HOS, BMP, MG #### [facility] [address] [place] [address] Dr. Alysa Martinez Hemoglobin Ql (U) TRACE-INTACT Abnormal NEGATIVE [facility] Comment on above: Performed By: #### P HOS, BMP, MG #### [facility] [address] [place] [address] Dr. Alysa Martinez Ketones Ql (U) Negative Normal NEGATIVE [facility] Comment on above: Performed By: #### P HOS, BMP, MG #### [facility] [address] [place] [address] Dr. Alysa Martinez LEUKOCYTES Negative Normal NEGATIVE [facility] Comment on above: Performed By: #### P HOS, BMP, MG #### [facility] [address] [place] [address] Dr. Alysa Martinez Nitrite Ql (U) Negative Normal NEGATIVE [facility] Comment on above: Performed By: #### P HOS, BMP, MG #### [facility] [address] [place] [address] Dr. Alysa Martinez pH (U) 7.5 [pH] Normal 5-9 [facility] Comment on above: Performed By: #### P HOS, BMP, MG #### [facility] [address] [place] [address] Dr. Alysa Martinez SPEC GRAVITY <=1.005 Abnormal 1.005-<=1.025 [facility] Comment on above: Performed By: #### P HOS, BMP, MG #### [facility] [address] [place] [address] Dr. Alysa Martinez UA PROTEIN Negative Normal NEGATIVE/ TRACE [facility] Comment on above: Performed By: #### P HOS, BMP, MG #### [facility] [address] [place] [address] Dr. Alysa Martinez Urobilinogen Qn (U) 0.2 {Bridget'U}/dL Normal 0.2 - 1. 0 [facility] Comment on above: Performed By: #### P HOS, BMP, MG #### [facility] [address] [place] [address] Dr. Alysa Martinez CALCIUM URINEon 01-10-2023 UR CALCIUM 1.1 mg/dL Critically low 5.1-21.0 [facility] Comment on above: Performed By: #### B MP #### [facility] [address] [place] [address] Dr. Alysa Martinez CBC AUTO DIFFon 01-10-2023 BASO # 0.0 103/ul Normal 0.0-0.1 [facility] Comment on above: Performed By: #### P HOS, BMP, MG #### [facility] [address] [place] [address] Dr. Alysa Martinez Basophils/100 WBC (Bld) 0.3 % Normal 0.2-2.0 [facility] Comment on above: Performed By: #### P HOS, BMP, MG #### [facility] [address] [place] [address] Dr. Alysa Martinez EO # 0.3 103/ul Normal 0.0-0.7 [facility] Comment on above: Performed By: #### P HOS, BMP, MG #### [facility] [address] [place] [address] Dr. Alysa Martinez Eosinophils/100 WBC (Bld) 3.6 % Normal 0.9-7.0 [facility] Comment on above: Performed By: #### P HOS, BMP, MG #### [facility] [address] [place] [address] Dr. Alysa Martinez Erythrocyte distribution width (RBC) [Ratio] 18.1 % Critically high 11.0-15.0 [facility] Comment on above: Performed By: #### P HOS, BMP, MG #### [facility] [address] [place] [address] Dr. Alysa Martinez Hematocrit (Bld) [Volume fraction] 41.5 % Normal 36.0-48.0 [facility] Comment on above: Performed By: #### P HOS, BMP, MG #### [facility] [address] [place] [address] Dr. Alysa Martinez Hemoglobin (Bld) [Mass/Vol] 13.0 g/dL Normal 12.0-16.0 [facility] Comment on above: Performed By: #### P HOS, BMP, MG #### [facility] [address] [place] [address] Dr. Alysa Martinez IG # 0.02 10e3/ul Normal 0.00-0.03 [facility] Comment on above: Performed By: #### P HOS, BMP, MG #### [facility] [address] [place] [address] Dr. Alysa Martinez IG % 0.3 % Normal 0.0-0.5 [facility] Comment on above: Performed By: #### P HOS, BMP, MG #### [facility] [address] [place] [address] Dr. Alysa Martinez LYMPH # 1.3 103/ul Normal 1.2-3.8 [facility] Comment on above: Performed By: #### P HOS, BMP, MG #### [facility] [address] [place] [address] Dr. Alysa Martinez Lymphocytes/100 WBC (Bld) 19.4 % Critically low 20.5-60.0 [facility] Comment on above: Performed By: #### P HOS, BMP, MG #### [facility] [address] [place] [address] Dr. Alysa Martinez MANUAL DIFF REQ NO Normal [facility] Comment on above: Performed By: #### P HOS, BMP, MG #### [facility] [address] [place] [address] Dr. Alysa Martinez MCH (RBC) [Entitic mass] 25.9 pg Critically low 26.7-34.0 [facility] Comment on above: Performed By: #### P HOS, BMP, MG #### [facility] [address] [place] [address] Dr. Alysa Martinez MCHC (RBC) [Mass/Vol] 31.3 g/dL Normal 29.9-35.2 [facility] Comment on above: Performed By: #### P HOS, BMP, MG #### [facility] [address] [place] [address] Dr. Alysa Martinez MCV (RBC) [Entitic vol] 82.8 fL Normal 81.0-99.0 [facility] Comment on above: Performed By: #### P HOS, BMP, MG #### [facility] [address] [place] [address] Dr. Alysa Martinez MONO # 0.4 103/ul Normal 0.3-0.8 [facility] Comment on above: Performed By: #### P HOS, BMP, MG #### [facility] [address] [place] [address] Dr. Alysa Martinez Monocytes/100 WBC (Bld) 5.9 % Normal 1.7-12.0 [facility] Comment on above: Performed By: #### P HOS, BMP, MG #### [facility] [address] [address] [address] Alysa Martinez NEUT # 4.9 103/ul Normal 1.4-6.5 [facility] Comment on above: Performed By: #### P HOS, BMP, MG #### [facility] [address] [address] [address] Alysa Martinez Neutrophils/100 WBC (Bld) 70.5 % Normal 43.0-75.0 [facility] Comment on above: Performed By: #### P HOS, BMP, MG #### [facility] [address] [address] [address] Alysa Martinez Platelet mean volume (Bld) [Entitic vol] 9.4 fL Critically low 9.5-13.5 [facility] Comment on above: Performed By: #### P HOS, BMP, MG #### [facility] [address] [address] [address] Alysa Martinez PLT 158 103/ul Normal 150-450 [facility] Comment on above: Performed By: #### P HOS, BMP, MG #### [facility] [address] [address] [address] Alysa Martinez RBC 5.01 106/ul Normal 4.20-5.40 [facility] Comment on above: Performed By: #### P HOS, BMP, MG #### [facility] [address] [address] [address] Alysa Martinez WBC 6.9 103/ul Normal 4.0-11.0 [facility] Comment on above: Performed By: #### P HOS, BMP, MG #### [facility] [address] [address] [address] Alysa Martinez CRPon 01-10-2023 CRP 12.0 mg/dL Critically high <=1.0 [facility] Comment on above: Performed By: #### P HOS, BMP, MG #### [facility] [address] [address] [address] Alysa Martinez Covid-19 PCR (CVDTBH)on 12-18 SARS-CoV-2 (COVID-19) RNA MARITA+probe Ql (Unsp spec) Not detected Normal NOT DETECTED [facility] Comment on above: Result Comment: When diagnostic testing is negative, the possibility of a false negative should be considered in the context of a patient's recent exposures and the presence of clinical signs and symptoms consistent with SARS-CoV-2. This test is not yet approved or cleared by the [place] FDA. When there are no FDA-approved or cleared tests available, and other criteria are met, FDA can make tests available under an emergency access mechanism called an Emergency Use Authorization (EUA). The EUA for this test is supported by the [employer] of Health and Human Service's declaration that circumstances exist to justify the emergency use of in vitro diagnostics for the detection and/or diagnosis of the virus that causes COVID-19. This EUA will remain in effect for the duration of the COVID-19 declaration justifying emergency of IVDs, unless it is terminated or revoked by the FDA (after which the test may no longer be used). Performed By: #### R F #### [facility] [address] [place] [address] Dr. Alysa Martinez IRONon 01-10-2023 Iron [Mass/Vol] 55.0 ug/dL Normal 50.0-170.0 [facility] Comment on above: Performed By: #### M G, CMP #### [facility] [address] [place] [address] Dr. Alysa Martinez MAGNESIUMon 01-10-2023 Magnesium [Mass/Vol] 1.0 mg/dL Critically low 1.8-2.4 [facility] Comment on above: Performed By: #### M G, CMP #### [facility] [address] [place] [address] Dr. Alysa Martinez Magnesium [Mass/Vol] 0.5 mg/dL Critically low 1.8-2.4 [facility] Comment on above: Performed By: #### B MP #### [facility] [address] [place] [address] Dr. Alysa Martinez PHOSPHORUSon 01-10-2023 Phosphate [Mass/Vol] 2.5 mg/dL Critically low 2.6-4.7 [facility] Comment on above: Performed By: #### M G, CMP #### [facility] [address] [place] [address] Dr. Alysa Martinez POTASSIUMon 01-10-2023 Potassium [Moles/Vol] 1.2 mmol/L Critically low 3.5-5.1 [facility] Comment on above: Performed By: #### B MP #### [facility] [address] [place] [address] Dr. Alysa Martinez PROF 14(COMP METB)on 023 Albumin [Mass/Vol] 3.4 g/dL Normal 3.4-5.0 [facility] Comment on above: Performed By: #### P HOS, BMP, MG #### [facility] [address] [place] [address] Dr. Alysa Martinez Albumin/Globulin [Mass ratio] 1.2 {ratio} Normal [facility] Comment on above: Performed By: #### P HOS, BMP, MG #### [facility] [address] [place] [address] Dr. Alysa Martinez ALP [Catalytic activity/Vol] 70 U/L Normal 46-116 [facility] Comment on above: Performed By: #### P HOS, BMP, MG #### [facility] [address] [place] [address] Dr. Alysa Martinez ALT [Catalytic activity/Vol] 36 U/L Normal 14-59 [facility] Comment on above: Performed By: #### P HOS, BMP, MG #### [facility] [address] [place] [address] Dr. Alysa Martinez Anion gap [Moles/Vol] 11.1 mmol/L Normal [facility] Comment on above: Performed By: #### P HOS, BMP, MG #### [facility] [address] [place] [address] Dr. Alysa Martinez AST [Catalytic activity/Vol] 79 U/L Critically high 15-37 [facility] Comment on above: Performed By: #### P HOS, BMP, MG #### [facility] [address] [address] [address] Alysa Martinez Bilirubin [Mass/Vol] 0.6 mg/dL Normal 0.2-1.0 [facility] Comment on above: Performed By: #### P HOS, BMP, MG #### [facility] [address] [address] [address] Alysa Martinez Calcium [Mass/Vol] 7.8 mg/dL Critically low 8.5-10.[address] [facility] Comment on above: Performed By: #### P HOS, BMP, MG #### [facility] [address] [place] [address] Dr. Alysa Martinez Chloride [Moles/Vol] 90 mmol/L Critically low 98-107 [facility] Comment on above: Performed By: #### P HOS, BMP, MG #### [facility] [address] [place] [address] Dr. Alysa Martinez CO2 [Moles/Vol] 38.1 mmol/L Critically high 21.0-32.0 [facility] Comment on above: Performed By: #### P HOS, BMP, MG #### [facility] [address] [place] [address] Dr. Alysa Martinez Creatinine [Mass/Vol] 0.92 mg/dL Normal 0.55-1.02 [facility] Comment on above: Performed By: #### P HOS, BMP, MG #### [facility] [address] [place] [address] Dr. Alysa Martinez EGFR-AF QATARI >60 Normal >=60 [facility] Comment on above: Performed By: #### P HOS, BMP, MG #### [facility] [address] [place] [address] Dr. Alysa Martinez EGFR-NON AF QATARI >60 Normal >=60 [facility] Comment on above: Performed By: #### P HOS, BMP, MG #### [facility] [address] [place] [address] Dr. Alysa Martinez Globulin (S) [Mass/Vol] 2.9 g/dL Normal [facility] Comment on above: Performed By: #### P HOS, BMP, MG #### [facility] [address] [address] [address] Alysa Martinez Glucose [Mass/Vol] 136 mg/dL Critically high 74-106 [facility] Comment on above: Performed By: #### P HOS, BMP, MG #### [facility] [address] [place] [address] Dr. Alysa Martinez Potassium [Moles/Vol] 1.2 mmol/L Critically low 3.5-5.1 [facility] Comment on above: Performed By: #### P HOS, BMP, MG #### [facility] [address] [place] [address] Dr. Alysa Martinez Protein [Mass/Vol] 6.3 g/dL Critically low 6.4-8.2 [facility] Comment on above: Performed By: #### P HOS, BMP, MG #### [facility] [address] [place] [address] Dr. Alysa Martinez Sodium [Moles/Vol] 138 mmol/L Normal 136-145 [facility] Comment on above: Performed By: #### P HOS, BMP, MG #### [facility] [address] [place] [address] Dr. Alysa Martinez Urea nitrogen [Mass/Vol] 12.0 mg/dL Normal 7.0-18.0 [facility] Comment on above: Performed By: #### P HOS, BMP, MG #### [facility] [address] [place] [address] Dr. Alysa Martinez Urea nitrogen/Creatinine [Mass ratio] 13.0 mg/mg Normal [facility] Comment on above: Performed By: #### P HOS, BMP, MG #### [facility] [address] [place] [address] Dr. Alysa Martinez PROF CHEM 8 (BAS METB)on Anion gap [Moles/Vol] 5.6 mmol/L Normal [facility] Comment on above: Performed By: #### M G, CMP #### [facility] [address] [place] [address] Dr. Alysa Martinez Calcium [Mass/Vol] 7.2 mg/dL Critically low 8.5-10.[address] [facility] Comment on above: Performed By: #### M G, CMP #### [facility] [address] [place] [address] Dr. Alysa Martinez Chloride [Moles/Vol] 94 mmol/L Critically low 98-107 [facility] Comment on above: Performed By: #### M G, CMP #### [facility] [address] [place] [address] Dr. Alysa Martinez CO2 [Moles/Vol] 38.8 mmol/L Critically high 21.0-32.0 [facility] Comment on above: Performed By: #### M G, CMP #### [facility] [address] [place] [address] Dr. Alysa Martinez Creatinine [Mass/Vol] 0.90 mg/dL Normal 0.55-1.02 [facility] Comment on above: Performed By: #### M G, CMP #### [facility] [address] [place] [address] Dr. Alysa Martinez EGFR-AF QATARI >60 Normal >=60 [facility] Comment on above: Performed By: #### M G, CMP #### [facility] [address] [place] [address] Dr. Alysa Martinez EGFR-NON AF QATARI >60 Normal >=60 [facility] Comment on above: Performed By: #### M G, CMP #### [facility] [address] [place] [address] Dr. Alysa Martinez Glucose [Mass/Vol] 154 mg/dL Critically high 74-106 [facility] Comment on above: Performed By: #### M G, CMP #### [facility] [address] [place] [address] Dr. Alysa Martinez Potassium [Moles/Vol] 1.4 mmol/L Critically low 3.5-5.1 [facility] Comment on above: Performed By: #### M G, CMP #### [facility] [address] [place] [address] Dr. Alysa Martinez Sodium [Moles/Vol] 137 mmol/L Normal 136-145 [facility] Comment on above: Performed By: #### M G, CMP #### [facility] [address] [place] [address] Dr. Alysa Martinez Urea nitrogen [Mass/Vol] 11.0 mg/dL Normal 7.0-18.0 [facility] Comment on above: Performed By: #### M G, CMP #### [facility] [address] [address] [address] Alysa Martinez Urea nitrogen/Creatinine [Mass ratio] 12.2 mg/mg Normal [facility] Comment on above: Performed By: #### M G, CMP #### [facility] [address] [place] [address] Dr. Alysa Martinez URIC ACID SERUMon 01-10-2023 Urate [Mass/Vol] 3.2 mg/dL Normal 2.6-6.0 [facility] Comment on above: Performed By: #### P HOS, BMP, MG #### [facility] [address] [place] [address] Dr. Alysa Martinez VITAMIN D 25 OHon 01-10-2023 VIT D 25-OH 10.0 ng/mL Normal [facility] Comment on above: Performed By: #### M G, CMP #### [facility] [address] [place] [address] Dr. Alysa Martinez VIT D RANGES SEE BELOW Normal [facility] Comment on above: Result Comment: <20 ng/mL Vit D deficient 20 - <30 ng/mL Vit D insufficient 30 - 100 ng/mL Vit D sufficient >100 ng/mL Potential Toxicity Performed By: #### M G, CMP #### [facility] [address] [place] [address] Dr. Alysa Martinez Office Visit (Cardiology)on 12-18-2022 Follow-up visit Diagnoses/Problems Assessed CAD (coronary artery disease) (414.00) (I25.10) History of myocardial infarction (412) (I25.2) History of PTCA (V45.82) (Z98.61) Hypertension (401.9) (I10) HLD (hyperlipidemia) (272.4) (E78.5) Current every day smoker (305.1) (F17.200) 1/2 PPD Class 1 obesity with body mass index (BMI) of 33.0 to 33.9 in adult (278.00,V85.33) (E66.9,Z68.33) Orders Class 1 obesity with body mass index (BMI) of 33.0 to 33.9 in adult Healthy Weight Tips; Status:Complete - Retrospective Authorization; Done: 18Dec2022 Some eating tips that can help you lose weight.; Status:Complete - Retrospective Authorization; Done: 18Dec2022 SocHx: Current every day smoker Tobacco Use Screening; Status:Complete; Done: 18Dec2022 You need to stop smoking. Though it is not easy, more than half of all adult smokers have quit. We encourage you to write down all the reasons you should quit smoking and set a quit date for yourself. Ask us how we can help. You may also call 5-240-IAXANOW for free resources and assistance.; Status:Complete - Retrospective Authorization; Done: 18Dec2022 Tobacco Use Screening; Status:Complete; Done: 18Dec2022 Patient Instructions Please bring all medicines, vitamins, and herbal supplements with you when you come to the office. Prescriptions will not be filled unless you are compliant with your follow up appointments or have a follow up appointment scheduled as per instruction of your physician. Refills should be requested at the time of your visit. Labs requested from Dr. Maza Follow up in 1 year. Chief Complaint AVRIL MORRISON is being seen for an annual follow-up of. 47-year-old female who returns for follow-up she is doing well she has no cardiovascular complaints. She sustained myocardial infarction in October 2019 with primary revascularization of the circumflex and then COVID illness. She has ongoing tobacco use and obesity. Last office visit was 2 years ago in 2020, 1 year after her revascularization and now 2-year hiatus since follow-up. She remains on Chantix therapy and is intending to quit tobacco She remains on DAPT therapy and this has been long enough and we will discontinue her clopidogrel. She otherwise remains on lisinopril and high-dose statin and aspirin. Recommendations, continue current therapies, smoking cessation counseling for 3 minutes, follow-up in 1 year, obtain lipid panel Surgical History Problems History of Cardiac catheterization with stent placement X1 History of section X1 History of Tubal ligation Current Meds Medication NameInstruction Aspirin Low Dose 81 MG Oral Tablet Delayed Releasetake 1 tablet by mouth once daily Atorvastatin Calcium 80 MG Oral TabletTAKE 1 TABLET BY MOUTH EVERY NIGHT Chantix 0.5 MG TABSTAKE 1 TABLET DAILY. Citalopram Hydrobromide 20 MG Oral TabletTAKE 1 TABLET BY MOUTH ONCE DAILY Clopidogrel Bisulfate 75 MG Oral TabletTAKE 1 TABLET BY MOUTH ONCE DAILY *EMERGENCY REFILL* hydroCHLOROthiazide 25 MG Oral TabletTAKE 1 TABLET DAILY. Lisinopril 40 MG Oral Tablettake 1 tablet by mouth once daily Pantoprazole Sodium 40 MG Oral Tablet Delayed ReleaseTAKE 1 TABLET DAILY. Allergies Medication No Known Drug Allergies Recorded By: Mariana Cardoso; 09/03/2021 4:38:15 PM Social History Problems Caffeine use (V49.89) (Z78.9) 4 BOTTLES DIET PEPSI Current every day smoker (305.1) (F17.200) 1/2 PPD No alcohol use No illicit drug use Review of Systems Constitutional: not feeling tired. Cardiovascular: no intermittent leg claudication and as noted in HPI. Respiratory: no cough and no shortness of breath. Gastrointestinal: no change in bowel habits and no blood in stools. Integumentary: no skin rashes. Neurological: no seizures and no frequent falls. All other systems have been reviewed and are negative for complaint. Vitals Vital Signs Recorded: 18Dec2022 10:05AM Heart Rate80, R Radial Hfyslddm193, LUE, Sitting Dqsmysqye42, LUE, Sitting Height5 ft 8 in Lhecro502 lb 2 oz BMI Soyvhzpwbe58.17 kg/m2 BSA Calculated2.12 Tobacco Usea) Yes Patient encouraged to stop using tobacco productsYes PHQ-2 #1. Over the last 2 weeks have you felt down, depressed or hopeless? (If yes, answer PHQ-9 below)No PHQ-2 #2. Over the last 2 weeks have you felt little interest or pleasure in doing things? (If yes, answer PHQ-9 below)No Falls Screening (Age 18+)a) No falls within the last year Physical Exam Constitutional: alert and in no acute distress. Neck: neck is supple, symmetric, trachea midline, no masses and no thyromegaly . Pulmonary: no increased work of breathing or signs of respiratory distress and lungs clear to auscultation. Cardiovascular: carotid pulses 2+ bilaterally with no bruit , JVP was normal, no thrills , regular rhythm, normal S1 and S2, no murmurs , pedal pulses 2+ bilaterally and no edema . Abdomen: abdomen non-tender, no masses and no hepatomegaly . Skin: skin w (more content not included)... Normal [employer] Tobacco Screening.on 023 Adult depression screening assessment No [facility] 250 DO Work Phone: Fall risk assessment a) No falls within the last year [facility] 250 DO Work Phone: Tobacco use status CPHS a) Yes [facility] 250 DO Work Phone: Tobacco Screening. Yes [facility] 250 DO Work Phone: CBC AUTO DIFFon 09-18-2022 BASO # 0.0 103/ul Normal 0.0-0.1 [facility] Comment on above: Performed By: #### M G, CMP #### [facility] [address] [address] [address] Alysa Martinez Basophils/100 WBC (Bld) 0.3 % Normal 0.2-2.0 [facility] Comment on above: Performed By: #### M G, CMP #### [facility] [address] [address] [address] Alysa Martinez EO # 0.2 103/ul Normal 0.0-0.7 [facility] Comment on above: Performed By: #### M G, CMP #### [facility] [address] [address] [address] Alysa Martinez Eosinophils/100 WBC (Bld) 2.2 % Normal 0.9-7.0 [facility] Comment on above: Performed By: #### M G, CMP #### [facility] [address] [address] [address] Alysa Martinez Erythrocyte distribution width (RBC) [Ratio] 18.7 % Critically high 11.0-15.0 [facility] Comment on above: Performed By: #### M G, CMP #### [facility] [address] [place] [address] Dr. Alysa Martinez Hematocrit (Bld) [Volume fraction] 44.0 % Normal 36.0-48.0 [facility] Comment on above: Performed By: #### M G, CMP #### [facility] [address] [place] [address] Dr. Alysa Martinez Hemoglobin (Bld) [Mass/Vol] 13.3 g/dL Normal 12.0-16.0 [facility] Comment on above: Performed By: #### M G, CMP #### [facility] [address] [place] [address] Dr. Alysa Martinez IG # 0.03 10e3/ul Normal 0.00-0.03 [facility] Comment on above: Performed By: #### M G, CMP #### [facility] [address] [place] [address] Dr. Alysa aMrtinez IG % 0.3 % Normal 0.0-0.5 [facility] Comment on above: Performed By: #### M G, CMP #### [facility] [address] [place] [address] Dr. Alysa Martinez LYMPH # 1.5 103/ul Normal 1.2-3.8 [facility] Comment on above: Performed By: #### M G, CMP #### [facility] [address] [place] [address] Dr. Alysa Martinez Lymphocytes/100 WBC (Bld) 17.4 % Critically low 20.5-60.0 [facility] Comment on above: Performed By: #### M G, CMP #### [facility] [address] [place] [address] Dr. Alysa Martinez MANUAL DIFF REQ NO Normal [facility] Comment on above: Performed By: #### M G, CMP #### [facility] [address] [place] [address] Dr. Alysa Martinez MCH (RBC) [Entitic mass] 23.5 pg Critically low 26.7-34.0 [facility] Comment on above: Performed By: #### M G, CMP #### [facility] [address] [place] [address] Dr. Alysa Martinez MCHC (RBC) [Mass/Vol] 30.2 g/dL Normal 29.9-35.2 [facility] Comment on above: Performed By: #### M G, CMP #### [facility] [address] [place] [address] Dr. Alysa Martinez MCV (RBC) [Entitic vol] 77.9 fL Critically low 81.0-99.0 [facility] Comment on above: Performed By: #### M G, CMP #### [facility] [address] [place] [address] Dr. Alysa Martinez MONO # 0.6 103/ul Normal 0.3-0.8 [facility] Comment on above: Performed By: #### M G, CMP #### [facility] [address] [place] [address] Dr. Alysa Martinez Monocytes/100 WBC (Bld) 6.7 % Normal 1.7-12.0 [facility] Comment on above: Performed By: #### M G, CMP #### [facility] [address] [place] [address] Dr. Alysa Martinez NEUT # 6.5 103/ul Normal 1.4-6.5 [facility] Comment on above: Performed By: #### M G, CMP #### [facility] [address] [place] [address] Dr. Alysa Martinez Neutrophils/100 WBC (Bld) 73.1 % Normal 43.0-75.0 [facility] Comment on above: Performed By: #### M G, CMP #### [facility] [address] [place] [address] Dr. Alysa Martinez Platelet mean volume (Bld) [Entitic vol] 8.8 fL Critically low 9.5-13.5 [facility] Comment on above: Performed By: #### M G, CMP #### [facility] [address] [place] [address] Dr. Alysa Martinez PLT 222 103/ul Normal 150-450 [facility] Comment on above: Performed By: #### M G, CMP #### [facility] [address] [address] [address] Alysa Martinez RBC 5.65 106/ul Critically high 4.20-5.40 [facility] Comment on above: Performed By: #### M G, CMP #### [facility] [address] [address] [address] Alysa Martinez WBC 8.8 103/ul Normal 4.0-11.0 [facility] Comment on above: Performed By: #### M G, CMP #### [facility] [address] [address] [address] Alysa Martinez FREE T3on 09-18-2022 FREE T3 2.16 pg/mlL Critically low 2.18-3.98 [facility] Comment on above: Performed By: #### B MP #### [facility] [address] [address] [address] Alysa Martinez GLYCOHEMOGLOBIN A1Con 2021 ADA RECOMMENDATION SEE BELOW Normal [facility] Comment on above: Result Comment: ADA RECOMMENDED LIMIT 4.0 - 6.0 ADA THERAPEUTIC TARGET < 7.0 ACTION SUGGESTED > 7.0 Performed By: #### R F #### [facility] [address] [place] [address] Dr. Alysa Martinez Glucose [Mass/Vol] 223 mg/dL Normal [facility] Comment on above: Performed By: #### R F #### [facility] [address] [address] [address] Alysa Martinez HbA1c (Bld) [Mass fraction] 9.4 % Critically high 4.5-6.2 [facility] Comment on above: Performed By: #### R F #### [facility] [address] [place] [address] Dr. Alysa Martinez LIPID PROFILEon 09-18-2022 CHOL-HDL RATIO NORM SEE BELOW Normal [facility] Comment on above: Result Comment: 3.3 - 4.4 LOW RISK 4.4 - 7.1 AVERAGE RISK 7.1 - 11.0 MODERATE RISK >11.0 HIGH RISK Performed By: #### B MP #### [facility] [address] [address] [address] Alysa Martinez Cholesterol [Mass/Vol] 123 mg/dL Normal <=200 [facility] Comment on above: Performed By: #### B MP #### [facility] [address] [address] [address] Alysa Martinez Cholesterol in HDL [Mass/Vol] 31 mg/dL Critically low 40-60 [facility] Comment on above: Performed By: #### B MP #### [facility] [address] [address] [address] Alysa Martinez Cholesterol in LDL [Mass/Vol] 53.0 mg/dL Normal [facility] Comment on above: Performed By: #### B MP #### [facility] [address] [place] [address] Dr. Alysa Martinez Cholesterol.total/Cho lesterol in HDL [Mass ratio] 4.0 {ratio} Normal [facility] Comment on above: Performed By: #### B MP #### [facility] [address] [place] [address] Dr. Alysa Martinez HDL NORMAL > or = 60 mg/dl - LO W CARDIOVASCULAR RISK <40 mg/dl - HIGH CARDIOVASCULAR RISK Normal [facility] Comment on above: Performed By: #### B MP #### [facility] [address] [place] [address] Dr. Alysa Martinez LDL CALC NORMAL SEE BELOW Normal [facility] Comment on above: Result Comment: <100 mg/dl OPTIMAL 100 - 129 mg/dl NEAR OR ABOVE OPTIMAL 130 - 159 mg/dl BORDERLINE HIGH 160 - 189 mg/dl HIGH >190 mg/dl VERY HIGH Performed By: #### B MP #### [facility] [address] [place] [address] Dr. Alysa Martinez Triglyceride [Mass/Vol] 195 mg/dL Critically high <=150 [facility] Comment on above: Performed By: #### B MP #### [facility] [address] [address] [address] Alysa Martinez VLDL CALC 39.0 mg/dL Normal [facility] Comment on above: Performed By: #### B MP #### [facility] [address] [place] [address] Dr. Alysa Martinez PROF 14(COMP METB)on 022 Albumin [Mass/Vol] 3.3 g/dL Critically low 3.4-5.0 [facility] Comment on above: Performed By: #### B MP #### [facility] [address] [place] [address] Dr. Alysa Martinez Albumin/Globulin [Mass ratio] 0.8 {ratio} Normal [facility] Comment on above: Performed By: #### B MP #### [facility] [address] [place] [address] Dr. Alysa Martinez ALP [Catalytic activity/Vol] 69 U/L Normal 46-116 [facility] Comment on above: Performed By: #### B MP #### [facility] [address] [place] [address] Dr. Alysa Martinez ALT [Catalytic activity/Vol] 20 U/L Normal 14-59 [facility] Comment on above: Performed By: #### B MP #### [facility] [address] [place] [address] Dr. Alysa Martinez Anion gap [Moles/Vol] 10.4 mmol/L Normal [facility] Comment on above: Performed By: #### B MP #### [facility] [address] [place] [address] Dr. Alysa Martinez AST [Catalytic activity/Vol] 11 U/L Critically low 15-37 [facility] Comment on above: Performed By: #### B MP #### [facility] [address] [place] [address] Dr. Alysa Martinez Bilirubin [Mass/Vol] 0.3 mg/dL Normal 0.2-1.0 [facility] Comment on above: Performed By: #### B MP #### [facility] [address] [place] [address] Dr. Alysa Martinez Calcium [Mass/Vol] 8.9 mg/dL Normal 8.5-10.1 [facility] Comment on above: Performed By: #### B MP #### [facility] [address] [place] [address] Dr. Alysa Martinez Chloride [Moles/Vol] 88 mmol/L Critically low 98-107 [facility] Comment on above: Performed By: #### B MP #### [facility] [address] [place] [address] Dr. Alysa Martinez CO2 [Moles/Vol] 33.7 mmol/L Critically high 21.0-32.0 [facility] Comment on above: Performed By: #### B MP #### [facility] [address] [place] [address] Dr. Alysa Martinez Creatinine [Mass/Vol] 0.78 mg/dL Normal 0.55-1.02 [facility] Comment on above: Performed By: #### B MP #### [facility] [address] [place] [address] Dr. Alysa Martinez EGFR-AF QATARI >60 Normal >=60 [facility] Comment on above: Performed By: #### B MP #### [facility] [address] [place] [address] Dr. Alysa Martinez EGFR-NON AF QATARI >60 Normal >=60 [facility] Comment on above: Performed By: #### B MP #### [facility] [address] [place] [address] Dr. Alysa Martinez Globulin (S) [Mass/Vol] 4.1 g/dL Normal [facility] Comment on above: Performed By: #### B MP #### [facility] [address] [address] [address] Alysa Martinez Glucose [Mass/Vol] 182 mg/dL Critically high 74-106 [facility] Comment on above: Performed By: #### B MP #### [facility] [address] [place] [address] Dr. Alysa Martinez Potassium [Moles/Vol] 4.1 mmol/L Normal 3.5-5.1 [facility] Comment on above: Performed By: #### B MP #### [facility] [address] [address] [address] Alysa Martinez Protein [Mass/Vol] 7.4 g/dL Normal 6.4-8.2 [facility] Comment on above: Performed By: #### B MP #### [facility] [address] [address] [address] Alysa Martinez Sodium [Moles/Vol] 128 mmol/L Critically low 136-[address] [facility] Comment on above: Performed By: #### B MP #### [facility] [address] [address] [address] Alysa Martinez Urea nitrogen [Mass/Vol] 15.0 mg/dL Normal 7.0-18.0 [facility] Comment on above: Performed By: #### B MP #### [facility] [address] [place] [address] Dr. Alysa Martinez Urea nitrogen/Creatinine [Mass ratio] 19.2 mg/mg [facility] Comment on above: Performed By: #### B MP #### [facility] [address] [address] [address] Alysa Martinez T4on 09-18-2022 T4 [Mass/Vol] 5.90 ug/dL Normal 4.80-13.90 [facility] Comment on above: Performed By: #### B MP #### [facility] [address] [address] [address] Alysa Martinez TSHon 09-18-2022 TSH 2.022 uIU/mL Normal 0.358-3.740 [facility] Comment on above: Performed By: #### B MP #### [facility] [address] [address] [address] Alysa Martinez VITAMIN D 25 OHon 09-18-2022 VIT D 25-OH 9.8 ng/mL Normal [facility] Comment on above: Performed By: #### P HOS, BMP, MG #### [facility] [address] [address] [address] Alysa Martinez VIT D RANGES SEE BELOW Normal [facility] Comment on above: Result Comment: <20 ng/mL Vit D deficient 20 - <30 ng/mL Vit D insufficient 30 - 100 ng/mL Vit D sufficient >100 ng/mL Potential Toxicity Performed By: #### P HOS, BMP, MG #### [facility] [address] [place] [address] Alysa Martinez Covid-19 PCR (CVDTB)on 05-20 SARS-CoV-2 (COVID-19) RNA MARITA+probe Ql (Unsp spec) Not detected Normal NOT DETECTED [facility] Comment on above: Result Comment: This test is not yet approved or cleared by the [place] FDA. When there are no FDA-approved or cleared tests available, and other criteria are met, FDA can make tests available under an emergency access mechanism called an Emergency Use Authorization (EUA). The EUA for this test is supported by the [place] of Health and Human Service's (HHS's) declaration that circumstances exist to justify the emergency use of in vitro diagnostics for the detection and/or diagnosis of the virus that causes COVID-19. This EUA will remain in effect (meaning this test can be used) for the duration of the COVID-19 declaration justifying emergency of IVDs, unless it is terminated or revoked by FDA (after which the test may no longer be used). When diagnostic testing is negative, the possibility of a false negative should be considered in the context of a patient's recent exposures and the presence of clinical signs and symptoms consistent with SARS-CoV-2. Performed By: #### B MP #### [facility] [address] [place] [address] Alysa Martinez Covid-19 PCR (CVDTB)on 04-18 SARS-CoV-2 (COVID-19) RNA MARITA+probe Ql (Unsp spec) Not detected Normal NOT DETECTED [facility] Comment on above: Result Comment: When diagnostic testing is negative, the possibility of a false negative should be considered in the context of a patient's recent exposures and the presence of clinical signs and symptoms consistent with SARS-CoV-2. This test is not yet approved or cleared by the [place] FDA. When there are no FDA-approved or cleared tests available, and other criteria are met, FDA can make tests available under an emergency access mechanism called an Emergency Use Authorization (EUA). The EUA for this test is supported by the [place] of Health and Human Service's declaration that circumstances exist to justify the emergency use of in vitro diagnostics for the detection and/or diagnosis of the virus that causes COVID-19. This EUA will remain in effect for the duration of the COVID-19 declaration justifying emergency of IVDs, unless it is terminated or revoked by the FDA (after which the test may no longer be used). Performed By: #### P HOS, BMP, MG #### [facility] [address] [place] [address] Dr. Alysa Martinez Physician Referralon 021 Physician Referral [id number]:127 Normal [facility] Physician Referralon 021 Physician Referral [id number]:127 Normal [facility] Vital Signs Date Time Vital Sign Value Performing Clinician Alexandriai jevon 12-18-2022 10:05-0500 Body height 172.72 cm Rocío [employer] Work Phone: [facility] 250 DO Work Phone: 12-18-2022 10:05-0500 Body mass index (BMI) [Ratio] 33.17 kg/m2 [employer] Work Phone: [facility] 250 DO Work Phone: 12-18-2022 10:05-0500 Body surface area Derived from formula 2.12 m2 Rocío [employer] Work Phone: [facility] 250 DO Work Phone: 12-18-2022 10:05-0500 Body weight 98.94 kg Rocío [employer] Work Phone: [facility] 250 DO Work Phone: 12-18-2022 10:05-0500 Diastolic blood pressure 74 mm[Hg] Rocío [employer]aza Work Phone: [facility] 250 DO Work Phone: 12-18-2022 10:05-0500 Heart rate 80 /min Rocío Maza Work Phone: [facility] 250 DO Work Phone: 12-18-2022 10:05-0500 Systolic blood pressure 128 mm[Hg] Rocío Maza Work Phone: [facility] 250 DO Work Phone: Encounters Encounter Date Encounter Type Care Provider Facility Start: 02-16-[address] ROCÍO MAZA . Facili ty:[facility]1 Start: 01-26-2023 Rx Renewal Rocío Maza Work Phone: [facility] 250 DO Work Phone: Start: 01-23-2023 End: 02-15-[address] ROCÍO MAZA . Facility:[facility] Start: 01-16-2023 End: 01-17-[address] ROCÍO MAZA . Facility:[facility] Start: 01-12-2023 End: 01-13-2023 Evaluation and management of inpatient DR ROCÍO MAZA . Facility:[facility] Start: 01-10-2023 End: 01-11-2023 ambulatory DAYNA PICKARD Facility:[facility] Start: 12-26-2022 Rx Renewal Rocío Maza Work Phone: [facility] 250 DO Work Phone: Start: 12-18-2022 ambulatory Sukh Mcdaniel y: Start: 12-18-2022 Office outpatient vi sit 15 minutes Rocío Maza Work Phone: [facility] 250 DO Work Phone: Start: 11-07-2022 Rx Renewal Tiffany Shelby MD Work Phone: [facility] 250 DO Work Phone: Start: 10-24-2022 Rx Renewal Tiffany Shelby MD Work Phone: [facility] 250 DO Work Phone: Start: 10-09-2022 End: 10-10-[address] ROCÍO MAZA . Facility:[facility] Start: 09-20-2022 Encounter for genera l adult medical examination without abnormal findings DR ROCÍO MAZA . [facility] Start: 09-18-2022 End: 09-19-[address] ROCÍO MAZA . Facility:[facility] Start: 09-18-2022 End: 09-19-2022 Encounter for general adult medical examination without abnormal findings DR ROCÍO MAZA . Facility:[facility] Start: 09-03-2022 Rx Renewal Tiffany Shelby MD Work Phone: [facility] 250 DO Work Phone: Start: 08-29-2022 Rx Renewal Tiffany Shelby MD Work Phone: [facility] 250 DO Work Phone: Start: 06-16-2022 End: 06-16-[address] ROCÍO MAZA . Facility: Start: 05-05-2022 End: 05-05-[address] ROCÍO MAZA . Facility: Start: 11-07-2021 Rx Renewal Sukh monzon DO Work Phone: [facility] 250 DO Work Phone: Start: 09-03-2021 Rx Renewal Tiffany Shelby MD Work Phone: [facility] [place] Work Phone: Procedures Date Procedure Procedure Detail Performing Clinician Cardiac catheterization Tucker Anderson DO Work Phone: Comment on above: X1; section Sukh brown DO Work Phone: Comment on above: X1; History of percutane ous transluminal coronary angioplasty History of PTCA [employer]ío [employer]aza Work Phone: Ligation of fallopian tube Mike Anderson DO Work Phone: Plan of Treatment Date Care Activity Detail Author Start: 12-23-2023 FUV, Provider: Sukh Anderson, Status: Pen, Time: 9:50 AM FUV, Provider: Sukh Anderson, Status: Pen, Time: 9:[address] [facility] DO Work Phone: Start: 12-18-2022 FUV, Provider: Sukh Anderson, Status: Pen, Time: 9:40 AM FUV, Provider: Sukh Anderson, Status: Pen, Time: 9:40 AM -[facility] 250 DO Work Phone: Start: 10-22-2021 FUV, Provider: Sukh Anderson, Status: Pen, Time: 9:15 AM FUV, Provider: Sukh Anderson, Status: Pen, Time: 9:[address] [facility] [place] Work Phone: Immunizations Immunization Date Immunization Notes Care Provider Vlad cash 03-30-2021 Pfizer-BioNTech COVI D-19 Vacc 30 MCG/0.3ML Intramuscular Suspension Suhk Mckinneydon DO Work Phone: [facility] 250 DO Work Phone: 03-09-2021 Pfizer-BioNTech COVI D-19 Vacc 30 MCG/0.3ML Intramuscular Suspension Sukh Mckinneydon DO Work Phone: [facility] 250 DO Work Phone: Payers Date Payer Category Payer Unknown [id number] 1975 Unknown [id number] 1973 Unknown [id number] [id number] 1973 Unknown [id number] [id number] 1973 Unknown [id number] [id number] 1973 Unknown [id number] 2.16.840.1.932961.3.579.2.593 1973 Unknown [id number] 2.16.840.1.753357.3.579.2.593 1973 Unknown [id number] 2.16.840.1.483854.3.579.2.593 1973 Unknown [id number] 2.16.840.1.036218.3.579.2.593 1973 Unknown [id number] [id number] 1959 Unknown [id number] Unknown [facility] Social History Date Type Detail Facility Occasional alcohol use Occasional alcohol use [place] [id number] DO Work Phone: Comment on above: A FEW SATURDAYS; 4 BOTTLES DIET PEPSI ; 3/4 PPD; 1/2 PPD; Clinical Note 10-10-2022 Note Date & Type Note Facility 10-10-2022 Note PROCEDURE: XR HIPS B IL 5V W PELVIS HISTORY: Hip pain , left greater than right; no known injury COMPARISON: None. FINDINGS: BONES:Minimal narrowing of the superior aspect of the hip joint space, left greater than right. No fracture, dislocation, bone lesion. SOFT TISSUES:No visible soft tissue swelling. EFFUSION:None visible. OTHER: Negative. IMPRESSION: 1. 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 Electronically authenticated by: MARY KATE ALVARENGA Date: 2022-10-10 11:06 [facility] Summary Purpose Family History No Family History Records FoundUnknown Family Member Name Dates Details FH: diabetes mellitus: Amadeo hernandez(V18.0, Z83.3) Status:Active Family history of malignant neoplasm of prostate: Father(V16.42, Z80.42) Status:Active Unknown Family Member Name Dates Details FH: diabetes mellitus: Mothe r(V18.0, Z83.3) Status:Active Family history of malignant neoplasm of prostate: Father(V16.42, Z80.42) Status:Active Unknown Family Member Name Dates Details Family history of malignant neoplasm of prostate: Father(V16.42, Z80.42) Status:Active FH: diabetes mellitus: Mothe r(V18.0, Z83.3) Status:Active Unknown Family Member Name Dates Details FH: diabetes mellitus: Mothe r(V18.0, Z83.3) Status:Active Family history of malignant neoplasm of prostate: Father(V16.42, Z80.42) Status:Active Unknown Family Member Name Dates Details FH: diabetes mellitus: Mothe r(V18.0, Z83.3) Status:Active Family history of malignant neoplasm of prostate: Father(V16.42, Z80.42) Status:Active Unknown Family Member Name Dates Details FH: diabetes mellitus: Mothe r(V18.0, Z83.3) Status:Active Family history of malignant neoplasm of prostate: Father(V16.42, Z80.42) Status:Active Unknown Family Member Name Dates Details FH: diabetes mellitus: Mothe r(V18.0, Z83.3) Status:Active Family history of malignant neoplasm of prostate: Father(V16.42, Z80.42) Status:Active Unknown Family Member Name Dates Details FH: diabetes mellitus: Mothe r(V18.0, Z83.3) Status:Active Family history of malignant neoplasm of prostate: Father(V16.42, Z80.42) Status:Active Unknown Family Member Name Dates Details FH: diabetes mellitus: Mothe r(V18.0, Z83.3) Status:Active Family history of malignant neoplasm of prostate: Father(V16.42, Z80.42) Status:Active Unknown Family Member Name Dates Details FH: diabetes mellitus: Mothe r(V18.0, Z83.3) Status:Active Family history of malignant neoplasm of prostate: Father(V16.42, Z80.42) Status:Active Unknown Family Member Name Dates Details FH: diabetes mellitus: Mothe r(V18.0, Z83.3) Status:Active Family history of malignant neoplasm of prostate: Father(V16.42, Z80.42) Status:Active Advance Directives No Advanced Directives Records FoundNo Advanced Directives Records FoundNo Advanced Directives Records FoundNo Advanced Directives Records Found Chief Complaint * AVRIL MORRISON is being seen for an annual follow-up of. * 47-year-old female who returns for follow-up she is doing well she has no cardiovascular complaints. She sustained myocardial infarction in October 2019 with primary revascularization of the circumflex and then COVID illness. She has ongoing tobacco use and obesity. Last office visit was 2 years ago in 2020, 1 year after her revascularization and now 2-year hiatus since follow-up. * She remains on Chantix therapy and is intending to quit tobacco * She remains on DAPT therapy and this has been long enough and we will discontinue her clopidogrel. She otherwise remains on lisinopril and high-dose statin and aspirin. * Recommendations, continue current therapies, smoking cessation counseling for 3 minutes, follow-up in 1 year, obtain lipid panel * AVRIL MORRISON is being seen for an annual follow-up of. * 47-year-old female who returns for follow-up she is doing well she has no cardiovascular complaints. She sustained myocardial infarction in October 2019 with primary revascularization of the circumflex and then COVID illness. She has ongoing tobacco use and obesity. Last office visit was 2 years ago in 2020, 1 year after her revascularization and now 2-year hiatus since follow-up. * She remains on Chantix therapy and is intending to quit tobacco * She remains on DAPT therapy and this has been long enough and we will discontinue her clopidogrel. She otherwise remains on lisinopril and high-dose statin and aspirin. * Recommendations, continue current therapies, smoking cessation counseling for 3 minutes, follow-up in 1 year, obtain lipid panel Additional Source Comments INFORMATION SOURCE (unrecogn ized section and content) DATE CREATED AUTHOR 03/16/2021 Nikko Mendoza [facility] DATE CREATED AUTHOR AUTHOR'S ORGANIZ ATION 12/19/2022 [facility] DATE CREATED AUTHOR AUTHOR'S ORGANIZ ATION 12/20/2022 [employer] DATE CREATED AUTHOR AUTHOR'S ORGANIZ ATION 02/24/2023 [facility] FOR RECORDS PERTAINING TO PATIENTS WHO ARE OR HAVE BEEN ENROLLED IN A CHEMICAL DEPENDENCY/SUBSTANCEABUSE PROGRAM, SOME INFORMATION MAY BE OMITTED. This clinical summary was aggregated from multiple sources. Caution should be exercised in using it in the provision of clinical care. This summary normalizes information from multiple sources, and as a consequence, information in this document may materially change the coding, format and clinical context of patient data. In addition, data may be omitted in some cases. CLINICAL DECISIONS SHOULD BE BASED ON THE PRIMARY CLINICAL RECORDS. [facility] [employer] [facility]. provides no warranty or guarantee of the accuracy or completeness of information in this document.
[2023-12-04 13:28] LABS: Occult Blood Negative
== END 2023-12-03 10:22 | disposition home or self-care (01) ==
LOC: LAB 10:21
PROVIDERS: PCP Family Medicine; Visit Provider Family Medicine
DX: Z00.00 Encounter for general adult medical examination without abnormal findings (principal)
CPT/HCPCS: G0328

== ENCOUNTER 2024-03-18 09:14 | Outpatient (OUT) | payer OTHER, SELFPAY ==
--- OUTSIDE RECORDS SUMMARY | 2024-03-18 09:34 | XMS_ITS ---
Patient Summarization (C-CDA 2.1 CCD) Created on: March 18, 2024 AVRIL MORRISON : 1975 Sex: Female Author Organization Sample organization Care Team Providers Care Editorial Clerk Name Role Phone Unavailable Unavailable Rocío Maza Unavailable Sukh Anderson Referring Unavailable Sukh Anderson Attending Unavailable Dr. Rocío Maza Primary Care Unavail able DAYAN PICKARD Primary Care Unavailable DAYNA PICKARD Consulting Unavailable DAYNA PICKARD Attending Unavailable DAYNA PICKARD Admitting Unavailable HOY ., DR ALFORD Consulting Unavailable HOY ., DR ALFORD Admitting Unavailable HOY ., DR ALFORD Attending Unavailable HOY ., DR ALFORD Primary Care Unavailable ZIEBER, DR MARY KATE Hernandez Consulting Unavailable HOY ., DR ALFORD Primary Care Unavailable HOY ., DR ALFORD Consulting Unavailable HOY ., DR ALFORD Attending Unavailable HOY ., DR ALFORD Admitting Unavailable HOY ., DR ALFORD Consulting [...] Primary Care Unavailable HOY ., DR ALFORD Admstephanie Unavailable HOY ., DR ALFORD Attending Unavailable ZIEBER, DR MARY KATE Hernandez Consulting Unavailable TIFFANY ., DR MCLEAN Consulting Unavailable SHAIKH Tai DANG Consulting Unavailable KRYS DALLAS Consulting Unavailable HOY ., DR ALFORD Primary Care Unavailable HOY ., DR ALFORD Consulting Unavailable HOY ., DR ALFORD Attending Unavailable HOY ., DR ALFORD Admstephanie Unavailable HOY ., DR ALFORD Primary Care Unavailable HOY ., DR ALFORD Consulting Unavailable HOY ., DR ALFORD Attending Unavailable HOY ., DR ALFORD Admitting Unavailable HOY ., DR ALFORD Consulting Unavailable HOY ., DR ALFORD Admitting Unavailable HOY ., DR ALFORD Attending Unavailable HOY ., DR ALFORD Primary Care Unavailable Encounters Encounter Date Encounter Type Care Provider Facility Start: 02-16-[address] ROCÍO MAZA . Facili ty:[facility]1 Start: 01-26-2023 Rx Renewal Rocío Maza Work Phone: [facility] [facility] DO Work Phone: Start: 01-23-2023 End: 02-15-[address] ROCÍO MAZA . Facility:[facility]1 Start: 01-16-2023 End: 01-17-[address] ROCÍO MAZA . Facility:[facility] Start: 01-12-2023 End: 01-13-2023 Evaluation and management of inpatient DR ROCÍO MAZA . Facility:[facility] Start: 01-10-2023 End: 01-11-2023 ambulatory DAYNA PICKARD Facility:[facility] Start: 12-26-2022 Rx Renewal Rocío Maza Work Phone: [facility] 250 DO Work Phone: Start: 12-18-2022 ambulatory Sukh Anderson Violeta y: Start: 12-18-2022 Office outpatient vi sit 15 minutes Rocío Maza Work Phone: [facility] 250 DO Work Phone: Start: 11-07-2022 Rx Renewal Tiffany Shelby MD Work Phone: [facility] 250 DO Work Phone: Start: 10-24-2022 Rx Renewal Tiffany Shelby MD Work Phone: [facility] 250 DO Work Phone: Start: 10-09-2022 End: 10-10-[address] ROCÍO MAZA . Facility:[facility] Start: 09-20-2022 Encounter for genera l adult medical examination without abnormal findings DR ROCÍO MAZA . [facility] Start: 09-18-2022 End: 09-19-[address] ROCÍO MAZA . Facility:[facility] Start: 09-18-2022 End: 09-19-2022 Encounter for general adult medical examination without abnormal findings DR ROCÍO AMZA . Facility:[facility]1 Start: 09-03-2022 Rx Renewal Tiffany Shelby MD Work Phone: [facility] 250 DO Work Phone: Start: 08-29-2022 Rx Renewal Tiffany Shelby MD Work Phone: [facility] 250 DO Work Phone: Start: 06-16-2022 End: 06-16-[address] ROCÍO MAZA . Facility:[facility]1 Start: 05-05-2022 End: 05-05-[address] ROCÍO MAZA . Facility: Start: 11-07-2021 Rx Renewal Sukh monzon DO Work Phone: [facility] 250 DO Work Phone: Start: 09-03-2021 Rx Renewal Tiffany Shelby MD Work Phone: [place] [id number] [place] Work Phone: Immunizations Immunization Date Immunization Notes Care Provider Vlad cash 03-30-2021 Pfizer-BioNTech COVI D-19 Vacc 30 MCG/0.3ML Intramuscular Suspension Sukh nAderson DO Work Phone: [facility] 250 DO Work Phone: 03-09-2021 Pfizer-BioNTech COVI D-19 Vacc 30 MCG/0.3ML Intramuscular Suspension Sukh Anderson DO Work Phone: [place] [id number] [place] Work Phone: Medications Completed/Discontinued Medications Medication Drug Class(es) Dates Sig (Normalized) Sig (Original) aspirin 81 mg delayed release oral tablet (20 sources) Platelet Aggregation Inhibitor, Nonsteroidal Anti-inflammator y Drug Start: take 1 tablet by mouth once daily [...] 0 Refills: 0 Ordered: 18-Dec-2022 DO Active Payers Date Payer Category Payer Unknown [id number] 1975 Unknown [id number] 1975 Unknown [id number] 1975 Unknown [id number] 1975 Unknown [id number] 1975 Unknown [id number] 1975 Unknown [id number] 1975 Unknown [id number] 1975 Unknown [id number] 1975 Unknown [id number] 1961 Unknown [id number] Unknown [facility] Plan of Treatment Date Care Activity Detail Author Start: 12-23-2023 FUV, Provider: Sukh Anderson, Status: Pen, Time: 9:50 AM FUV, Provider: Sukh Anderson, Status: Pen, [facility]: [facility] Work [facility]: Start: 12-18-2022 FUV, Provider: Sukh Anderson, Status: Pen, Time: 9:40 AM FUV, Provider: Sukh Anderson, Status: Pen, [facility]: 9:40 [facility] Work [facility]: Start: 10-22-2021 FUV, Provider: Sukh Anderson, Status: Pen, Time: 9:15 AM FUV, Provider: Sukh Anderson, Status: Pen, Time: 9:[address] [facility] [address] [place] Work Phone: Problems Active Problems Problem Classification Problem Date Documented Date Episodic/Chronic Allergic reactions (13 sources) H/O: Disorder; Translations: [Personal history of allergy to other specified medicinal agents] Episodic Anxiety disorders (13 sources) Anxiety; Translations: [Anxiety state, unspecified] Chronic Coronary atherosclerosis and other heart disease (20 sources) Coronary arteriosclerosis; Translations: [Coronary atherosclerosis of unspecified type of vessel, [place] or graft] Chronic Deficiency and other anemia [...] Onset: 2 Chronic Other aftercare (1 source) correction (current) use of aspirin; Translations: [FPC CURRENT USE OF ASPIRIN] Onset: 3 Episodic Other aftercare (1 source) Other terminal carman (current) drug therapy; Translations: [OTH [facility] CURRENT DRUG THERAPY] Onset: 3 Episodic Other aftercare (1 source) correction (current) use of oral hypoglycemic drugs; Translations: [[facility] USE ORAL HYPOGLYCEMIC DX] Onset: 3 Episodic [...] COUGH, UNSPECIFIED; Translations: [COUGH, UNSPECIFIED] Onset: 05-05-2022 Procedures Date Procedure Procedure Detail Performing Clinician Cardiac catheterization Will john Anderson DO Work Phone: Comment on above: X1; section Sukh brown DO Work Phone: Comment on above: X1; History of percutane ous transluminal coronary angioplasty History of PTCA Rocío Maza Work Phone: Ligation of fallopian tube Mike Anderson [employer] Work Phone: Results Test Name Value Interpretation Reference Range Facility MAGNESIUMon 02-23-2023 Magnesium [Mass/Vol] 2.2 mg/dL Normal 1.8-2.4 [facility] Comment on above: Performed By: #### M Alvin, CMP #### [facility] [address] [place] [address] Dr. Alysa Martinez PROF 14(COMP METB)on 023 Albumin [Mass/Vol] 3.2 g/dL Critically low 3.4-5.0 [facility] Comment on above: Performed By: #### Kika Esquivel, CMP #### [facility] [address] [place] [address] Dr. Alysa Martinez Albumin/Globulin [Mass ratio] 0.8 {ratio} Normal [facility] Comment on above: Performed By: #### M G, CMP #### [facility] [address] [place] [address] Dr. Alysa Martinez ALP [Catalytic activity/Vol] 74 U/L Normal 46-116 [facility] Comment on above: Performed By: #### M Alvin, CMP #### [facility] [address] [place] [address] Dr. Alysa Martinez ALT [Catalytic activity/Vol] 43 U/L Normal 14-59 [facility] Comment on above: Performed By: #### M G, CMP #### [facility] [address] [place] [address] Dr. Alysa Martinez Anion gap [Moles/Vol] 10.9 mmol/L Normal [facility] Comment on above: Performed By: #### M G, CMP #### [facility] [address] [address] [address] Alysa Martinez AST [Catalytic activity/Vol] 22 U/L Normal 15-37 [facility] Comment on above: Performed By: #### M G, CMP #### [facility] [address] [place] [address] Dr. Alysa Martinez Bilirubin [Mass/Vol] 0.3 mg/dL Normal 0.2-1.0 [facility] Comment on above: Performed By: #### M G, CMP #### [facility] [address] [place] [address] Dr. Alysa Martinez Calcium [Mass/Vol] 8.6 mg/dL Normal 8.5-10.1 [facility] Comment on above: Performed By: #### M G, CMP #### [facility] [address] [place] [address] Dr. Alysa Martinez Chloride [Moles/Vol] 102 mmol/L Normal 98-107 [facility] Comment on above: Performed By: #### M G, CMP #### [facility] [address] [place] [address] Dr. Alysa Martinez CO2 [Moles/Vol] 30.0 mmol/L Normal 21.0-32.0 [facility] Comment on above: Performed By: #### M G, CMP #### [facility] [address] [place] [address] Dr. Alysa Martinez Creatinine [Mass/Vol] 0.89 mg/dL Normal 0.55-1.02 [facility] Comment on above: Performed By: #### M G, CMP #### [facility] [address] [place] [address] Dr. Alysa Martinez EGFR-AF IRISH >60 Normal >=60 [facility] Comment on above: Performed By: #### M G, CMP #### [facility] [address] [place] [address] Dr. Alysa Martinez EGFR-NON AF IRISH >60 Normal >=60 [facility] Comment on above: Performed By: #### M G, CMP #### [facility] [address] [place] [address] Dr. Alysa Martinez Globulin (S) [Mass/Vol] 4.0 g/dL Normal [facility] Comment on above: Performed By: #### M G, CMP #### [facility] [address] [place] [address] Dr. Alysa Martinez Glucose [Mass/Vol] 144 mg/dL Critically high 74-106 [facility] Comment on above: Performed By: #### M G, CMP #### [facility] [address] [place] [address] Dr. Alysa Martinez Potassium [Moles/Vol] 3.9 mmol/L Normal 3.5-5.1 [facility] Comment on above: Performed By: #### M G, CMP #### [facility] [address] [place] [address] Dr. Alysa Martinez Protein [Mass/Vol] 7.2 g/dL Normal 6.4-8.2 [facility] Comment on above: Performed By: #### M G, CMP #### [facility] [address] [place] [address] Dr. Alysa Martinez Sodium [Moles/Vol] 139 mmol/L Normal 136-145 [facility] Comment on above: Performed By: #### M G, CMP #### [facility] [address] [place] [address] Dr. Alysa Martinez Urea nitrogen [Mass/Vol] 14.0 mg/dL Normal 7.0-18.0 [facility] Comment on above: Performed By: #### M G, CMP #### [facility] [address] [place] [address] Dr. Alysa Martinez Urea nitrogen/Creatinine [Mass ratio] 15.7 mg/mg Normal [facility] Comment on above: Performed By: #### M G, CMP #### [facility] [address] [place] [address] Dr. Alysa Martinez MAGNESIUMon 02-16-2023 Magnesium [Mass/Vol] 2.1 mg/dL Normal 1.8-2.4 [facility] Comment on above: Performed By: #### M G, CMP #### [facility] [address] [place] [address] Dr. Alysa Martinez PROF 14(COMP METB)on 023 Albumin [Mass/Vol] 3.3 g/dL Critically low 3.4-5.0 [facility] Comment on above: Performed By: #### P HOS, BMP, MG #### [facility] [address] [place] [address] Dr. Alysa Martinez Albumin/Globulin [Mass ratio] 0.8 {ratio} Normal [facility] Comment on above: Performed By: #### P HOS, BMP, MG #### [facility] [address] [place] [address] Dr. Alysa Martinez ALP [Catalytic activity/Vol] 74 U/L Normal 46-116 [facility] Comment on above: Performed By: #### P HOS, BMP, MG #### [facility] [address] [place] [address] Dr. Alysa Maritnez ALT [Catalytic activity/Vol] 46 U/L Normal 14-59 [facility] Comment on above: Performed By: #### P HOS, BMP, MG #### [facility] [address] [place] [address] Dr. Alysa Martinez Anion gap [Moles/Vol] 12.4 mmol/L Normal [facility] Comment on above: Performed By: #### P HOS, BMP, MG #### [facility] [address] [place] [address] Dr. Alysa Martinez AST [Catalytic activity/Vol] 21 U/L Normal 15-37 [facility] Comment on above: Performed By: #### P HOS, BMP, MG #### [facility] [address] [address] [address] Alysa Martinez Bilirubin [Mass/Vol] 0.3 mg/dL Normal 0.2-1.0 [facility] Comment on above: Performed By: #### P HOS, BMP, MG #### [facility] [address] [address] [address] Alsya Martinez Calcium [Mass/Vol] 9.2 mg/dL Normal 8.5-10.1 [facility] Comment on above: Performed By: #### P HOS, BMP, MG #### [facility] [address] [address] [address] Alysa Martinez Chloride [Moles/Vol] 100 mmol/L Normal 98-107 [facility] Comment on above: Performed By: #### P HOS, BMP, MG #### [facility] [address] [place] [address] Dr. Alysa Martinez CO2 [Moles/Vol] 30.9 mmol/L Normal 21.0-32.0 [facility] Comment on above: Performed By: #### P HOS, BMP, MG #### [facility] [address] [place] [address] Dr. Alysa Martinez Creatinine [Mass/Vol] 0.98 mg/dL Normal 0.55-1.02 [facility] Comment on above: Performed By: #### P HOS, BMP, MG #### [facility] [address] [place] [address] Dr. Alysa Martinez EGFR-AF IRISH >60 Normal >=[address] [facility] Comment on above: Performed By: #### P HOS, BMP, MG #### [facility] [address] [place] [address] Dr. Alysa Martinez EGFR-NON AF IRISH 60 mL/min/1.73m2 Normal >=60 [facility] Comment on above: Performed By: #### P HOS, BMP, MG #### [facility] [address] [place] [address] Dr. Alysa Martinez Globulin (S) [Mass/Vol] 3.9 g/dL Normal [facility] Comment on above: Performed By: #### P HOS, BMP, MG #### [facility] [address] [place] [address] Dr. Alysa Martinez Glucose [Mass/Vol] 106 mg/dL Normal 74-106 [facility] Comment on above: Performed By: #### P HOS, BMP, MG #### [facility] [address] [place] [address] Dr. Alysa Martinez Potassium [Moles/Vol] 4.3 mmol/L Normal 3.5-5.1 [facility] Comment on above: Performed By: #### P HOS, BMP, MG #### [facility] [address] [place] [address] Dr. Alysa Martinez Protein [Mass/Vol] 7.2 g/dL Normal 6.4-8.2 [facility] Comment on above: Performed By: #### P HOS, BMP, MG #### [facility] [address] [place] [address] Dr. Alysa Martinez Sodium [Moles/Vol] 139 mmol/L Normal 136-145 [facility] Comment on above: Performed By: #### P HOS, BMP, MG #### [facility] [address] [place] [address] Dr. Alysa Martinez Urea nitrogen [Mass/Vol] 15.0 mg/dL Normal 7.0-18.0 [facility] Comment on above: Performed By: #### P HOS, BMP, MG #### [facility] [address] [place] [address] Dr. Alysa Martinez Urea nitrogen/Creatinine [Mass ratio] 15.3 mg/mg Normal [facility] Comment on above: Performed By: #### P HOS, BMP, MG #### [facility] [address] [place] [address] Dr. Alysa Martinez MAGNESIUMon 02-02-2023 Magnesium [Mass/Vol] 1.5 mg/dL Critically low 1.8-2.4 [facility] Comment on above: Performed By: #### R F #### [facility] [address] [place] [address] Dr. Alysa Martinez PROF 14(COMP METB)on 023 Albumin [Mass/Vol] 3.4 g/dL Normal 3.4-5.0 [facility] Comment on above: Performed By: #### R F #### [facility] [address] [place] [address] Dr. Alysa Martinez Albumin/Globulin [Mass ratio] 0.8 {ratio} Normal [facility] Comment on above: Performed By: #### R F #### [facility] [address] [place] [address] Dr. Alysa Martinez ALP [Catalytic activity/Vol] 77 U/L Normal 46-116 [facility] Comment on above: Performed By: #### R F #### [facility] [address] [place] [address] Dr. Alysa Martinez ALT [Catalytic activity/Vol] 37 U/L Normal 14-59 [facility] Comment on above: Performed By: #### R F #### [facility] [address] [place] [address] Dr. Alysa Martinez Anion gap [Moles/Vol] 12.5 mmol/L Normal [facility] Comment on above: Performed By: #### R F #### [facility] [address] [place] [address] Dr. Alysa Martinez AST [Catalytic activity/Vol] 19 U/L Normal 15-37 [facility] Comment on above: Performed By: #### R F #### [facility] [address] [place] [address] Dr. Alysa Martinez Bilirubin [Mass/Vol] 0.3 mg/dL Normal 0.2-1.0 [facility] Comment on above: Performed By: #### R F #### [facility] [address] [place] [address] Dr. Alysa Martinez Calcium [Mass/Vol] 9.5 mg/dL Normal 8.5-10.1 [facility] Comment on above: Performed By: #### R F #### [facility] [address] [place] [address] Dr. Alysa Martinez Chloride [Moles/Vol] 100 mmol/L Normal 98-107 [facility] Comment on above: Performed By: #### R F #### [facility] [address] [place] [address] Dr. Alysa Martinez CO2 [Moles/Vol] 26.8 mmol/L Normal 21.0-32.0 [facility] Comment on above: Performed By: #### R F #### [facility] [address] [address] [address] Alysa Martinez Creatinine [Mass/Vol] 1.15 mg/dL Critically high 0.55-1.02 [facility] Comment on above: Performed By: #### R F #### [facility] [address] [place] [address] Dr. Alysa Martinez EGFR-AF IRISH >60 Normal >=60 [facility] Comment on above: Performed By: #### R F #### [facility] [address] [place] [address] Dr. Alysa Martinez EGFR-NON AF IRISH 50 mL/min/1.73m2 Critically low >=60 [facility] Comment on above: Performed By: #### R F #### [facility] [address] [place] [address] Dr. Alysa Martinez Globulin (S) [Mass/Vol] 4.1 g/dL Normal [facility] Comment on above: Performed By: #### R F #### [facility] [address] [place] [address] Dr. Alysa Martinez Glucose [Mass/Vol] 128 mg/dL Critically high 74-106 [facility] Comment on above: Performed By: #### R F #### [facility] [address] [place] [address] Dr. Alysa Martinez Potassium [Moles/Vol] 4.3 mmol/L Normal 3.5-5.1 [facility] Comment on above: Performed By: #### R F #### [facility] [address] [place] [address] Dr. Alysa Martinez Protein [Mass/Vol] 7.5 g/dL Normal 6.4-8.2 [facility] Comment on above: Performed By: #### R F #### [facility] [address] [place] [address] Dr. Alysa Martinez Sodium [Moles/Vol] 135 mmol/L Critically low 136-145 [facility] Comment on above: Performed By: #### R F #### [facility] [address] [place] [address] Dr. Alysa Martinez Urea nitrogen [Mass/Vol] 26.0 mg/dL Critically high 7.0-18.0 [facility] Comment on above: Performed By: #### R F #### [facility] [address] [place] [address] Dr. Alysa Martinez Urea nitrogen/Creatinine [Mass ratio] 22.6 mg/mg Normal [facility] Comment on above: Performed By: #### R F #### [facility] [address] [place] [address] Dr. Alysa Martinez MAGNESIUMon 01-23-2023 Magnesium [Mass/Vol] 2.6 mg/dL Critically high 1.8-2.4 [facility] Comment on above: Performed By: #### M G, CMP #### [facility] [address] [place] [address] Dr. Alysa Martinez PROF 14(COMP METB)on 023 Albumin [Mass/Vol] 3.6 g/dL Normal 3.4-5.0 [facility] Comment on above: Performed By: #### M G, CMP #### [facility] [address] [place] [address] Dr. Alysa Martinez Albumin/Globulin [Mass ratio] 0.9 {ratio} Normal [facility] Comment on above: Performed By: #### M G, CMP #### [facility] [address] [place] [address] Dr. Alysa Martinez ALP [Catalytic activity/Vol] 79 U/L Normal 46-116 [facility] Comment on above: Performed By: #### M G, CMP #### [facility] [address] [place] [address] Dr. Alysa Martinez ALT [Catalytic activity/Vol] 35 U/L Normal 14-59 [facility] Comment on above: Performed By: #### M G, CMP #### [facility] [address] [place] [address] Dr. Alysa Martinez Anion gap [Moles/Vol] 13.4 mmol/L Normal [facility] Comment on above: Performed By: #### M G, CMP #### [facility] [address] [place] [address] Dr. Alysa Martinez AST [Catalytic activity/Vol] 18 U/L Normal 15-37 [facility] Comment on above: Performed By: #### M G, CMP #### [facility] [address] [place] [address] Dr. Alysa Martinez Bilirubin [Mass/Vol] 0.2 mg/dL Normal 0.2-1.0 [facility] [facility] Comment on above: Performed By: #### M G, CMP #### [facility] [address] [place] [address] Dr. Alysa Martinez Calcium [Mass/Vol] 8.9 mg/dL Normal 8.5-10.1 [facility] Comment on above: Performed By: #### M G, CMP #### [facility] [address] [place] [address] Dr. Alysa Martinez Chloride [Moles/Vol] 98 mmol/L Normal 98-107 [facility] Comment on above: Performed By: #### M G, CMP #### [facility] [address] [place] [address] Dr. Alysa Martinez CO2 [Moles/Vol] 27.6 mmol/L Normal 21.0-32.0 [facility] Comment on above: Performed By: #### M G, CMP #### [facility] [address] [place] [address] Dr. Alysa Martinez Creatinine [Mass/Vol] 0.86 mg/dL Normal 0.55-1.02 [facility] Comment on above: Performed By: #### M G, CMP #### [facility] [address] [place] [address] Dr. Alysa Martinez EGFR-AF IRISH >60 Normal >=60 [facility] Comment on above: Performed By: #### M G, CMP #### [facility] [address] [place] [address] Dr. Alysa Martinez EGFR-NON AF IRISH >60 Normal >=60 [facility] Comment on above: Performed By: #### M G, CMP #### [facility] [address] [place] [address] Dr. Alysa Martinez Globulin (S) [Mass/Vol] 4.0 g/dL Normal [facility] Comment on above: Performed By: #### M G, CMP #### [facility] [address] [place] [address] Dr. Alysa Martinez Glucose [Mass/Vol] 112 mg/dL Critically high 74-106 [facility] Comment on above: Performed By: #### M G, CMP #### [facility] [address] [place] [address] Dr. Alsya Martinez Potassium [Moles/Vol] 5.0 mmol/L Normal 3.5-5.1 [facility] Comment on above: Performed By: #### M G, CMP #### [facility] [address] [place] [address] Dr. Alysa Martinez Protein [Mass/Vol] 7.6 g/dL Normal 6.4-8.2 [facility] Comment on above: Performed By: #### M G, CMP #### [facility] [address] [place] [address] Dr. Alysa Martinez Sodium [Moles/Vol] 134 mmol/L Critically low 136-145 [facility] Comment on above: Performed By: #### M G, CMP #### [facility] [address] [place] [address] Dr. Alysa Martinez Urea nitrogen [Mass/Vol] 17.0 mg/dL Normal 7.0-18.0 [facility] Comment on above: Performed By: #### M G, CMP #### [facility] [address] [place] [address] Dr. Alysa Martinez Urea nitrogen/Creatinine [Mass ratio] 19.8 mg/mg Normal [facility] Comment on above: Performed By: #### M G, CMP #### [facility] [address] [place] [address] Dr. Alysa Martinez MAGNESIUMon 01-16-2023 Magnesium [Mass/Vol] 1.7 mg/dL Critically low 1.8-2.4 [facility] Comment on above: Performed By: #### R F #### [facility] [address] [place] [address] Dr. Alysa Martinez PROF 14(COMP METB)on 023 Albumin [Mass/Vol] 3.1 g/dL Critically low 3.4-5.0 [facility] Comment on above: Performed By: #### R F #### [facility] [address] [place] [address] Dr. Alysa Martinez Albumin/Globulin [Mass ratio] 0.9 {ratio} Normal [facility] Comment on above: Performed By: #### R F #### [facility] [address] [place] [address] Dr. Alysa Martinez ALP [Catalytic activity/Vol] 69 U/L Normal 46-116 [facility] Comment on above: Performed By: #### R F #### [facility] [address] [place] [address] Dr. Alysa Martinez ALT [Catalytic activity/Vol] 46 U/L Normal 14-59 [facility] Comment on above: Performed By: #### R F #### [facility] [address] [place] [address] Dr. Alysa Martinez Anion gap [Moles/Vol] 10.0 mmol/L Normal [facility] Comment on above: Performed By: #### R F #### [facility] [address] [place] [address] Dr. Alysa Martinez AST [Catalytic activity/Vol] 29 U/L Normal 15-37 [facility] Comment on above: Performed By: #### R F #### [facility] [address] [place] [address] Dr. Alysa Martinez Bilirubin [Mass/Vol] 0.3 mg/dL Normal 0.2-1.0 [facility] Comment on above: Performed By: #### R F #### [facility] [address] [address] [address] Alysa Martinez Calcium [Mass/Vol] 8.9 mg/dL Normal 8.5-10.1 [facility] Comment on above: Performed By: #### R F #### [facility] [address] [address] [address] Alysa Martinez Chloride [Moles/Vol] 103 mmol/L Normal 98-107 [facility] Comment on above: Performed By: #### R F #### [facility] [address] [place] [address] Dr. Alysa Martinez CO2 [Moles/Vol] 32.5 mmol/L Critically high 21.0-32.0 [facility] Comment on above: Performed By: #### R F #### [facility] [address] [place] [address] Dr. Alysa Martinez Creatinine [Mass/Vol] 0.85 mg/dL Normal 0.55-1.02 [facility] Comment on above: Performed By: #### R F #### [facility] [address] [place] [address] Dr. Alysa Martinez EGFR-AF IRISH >60 Normal >=[address] [facility] Comment on above: Performed By: #### R F #### [facility] [address] [place] [address] Dr. Alysa Martinez EGFR-NON AF IRISH >60 Normal >=60 [facility] Comment on above: Performed By: #### R F #### [facility] [address] [address] [address] Alysa Martinez Globulin (S) [Mass/Vol] 3.5 g/dL Normal [facility] Comment on above: Performed By: #### R F #### [facility] [address] [place] [address] Dr. Alysa Martinez Glucose [Mass/Vol] 97 mg/dL Normal 74-106 [facility] Comment on above: Performed By: #### R F #### [facility] [address] [address] [address] Alysa Martinez Potassium [Moles/Vol] 3.5 mmol/L Normal 3.5-5.1 [facility] Comment on above: Performed By: #### R F #### [facility] [address] [address] [address] Alysa Martinez Protein [Mass/Vol] 6.6 g/dL Normal 6.4-8.2 [facility] Comment on above: Performed By: #### R F #### [facility] [address] [address] [address] Alysa Martinez Sodium [Moles/Vol] 142 mmol/L Normal 136-145 [facility] Comment on above: Performed By: #### R F #### [facility] [address] [address] [address] Alysa Martinez Urea nitrogen [Mass/Vol] 12.0 mg/dL Normal 7.0-18.0 [facility] Comment on above: Performed By: #### R F #### [facility] [address] [address] [address] Alysa Martinez Urea nitrogen/Creatinine [Mass ratio] 14.1 mg/mg Normal [facility] Comment on above: Performed By: #### R F #### [facility] [address] [address] [address] Alysa Martinez CHLORIDE URINE RANDOMon 12-18 Chloride, Urine <20 Normal Not Estab. [facility] Comment on above: Performed By: #### P HOS, BMP, MG #### [facility] [address] [id number] Alysa Martinez MAGNESIUMon 01-13-2023 Magnesium [Mass/Vol] 2.1 mg/dL Normal 1.8-2.4 [facility] Comment on above: Performed By: #### R F #### [facility] [address] [address] [address] Alysa Martinez PHOSPHORUSon 01-13-2023 Phosphate [Mass/Vol] 3.7 mg/dL Normal 2.6-4.7 [facility] Comment on above: Performed By: #### R F #### [facility] [address] [place] [address] Dr. Alysa Martinez PROF CHEM 8 (BANNER METB)on Anion gap [Moles/Vol] 9.9 mmol/L Normal [facility] Comment on above: Performed By: #### B MP #### [facility] [address] [place] [address] Dr. Alysa Martinez Anion gap [Moles/Vol] 12.3 mmol/L Normal [facility] Comment on above: Performed By: #### R F #### [facility] [address] [place] [address] Dr. Alysa Martinez Calcium [Mass/Vol] 7.5 mg/dL Critically low 8.5-10.1 [facility] Comment on above: Performed By: #### B MP #### [facility] [address] [place] [address] Dr. Alysa Martinez Calcium [Mass/Vol] 7.6 mg/dL Critically low 8.5-10.1 [facility] Comment on above: Performed By: #### R F #### [facility] [address] [place] [address] Dr. Alysa Martinez Chloride [Moles/Vol] 103 mmol/L Normal 98-107 [facility] Comment on above: Performed By: #### B MP #### [facility] [address] [place] [address] Dr. Alysa Martinez Chloride [Moles/Vol] 106 mmol/L Normal 98-107 [facility] Comment on above: Performed By: #### R F #### [facility] [address] [place] [address] Dr. Alysa Martinez CO2 [Moles/Vol] 31.7 mmol/L Normal 21.0-32.0 [facility] Comment on above: Performed By: #### B MP #### [facility] [address] [place] [address] Dr. Alysa Martinez CO2 [Moles/Vol] 30.7 mmol/L Normal 21.0-32.0 [facility] Comment on above: Performed By: #### R F #### [facility] [address] [address] [address] Alysa Martinez Creatinine [Mass/Vol] 0.75 mg/dL Normal 0.55-1.02 [facility] Comment on above: Performed By: #### B MP #### [facility] [address] [address] [address] Alysa Martinez Creatinine [Mass/Vol] 0.67 mg/dL Normal 0.55-1.02 [facility] Comment on above: Performed By: #### R F #### [facility] [address] [place] [address] Dr. Alysa Martinez EGFR-AF IRISH >60 Normal >=60 [facility] Comment on above: Performed By: #### B MP #### [facility] [address] [place] [address] Dr. Alysa Martinez EGFR-AF IRISH >60 Normal >=60 [facility] Comment on above: Performed By: #### R F #### [facility] [address] [place] [address] Dr. Alysa Martinez EGFR-NON AF IRISH >60 Normal >=60 [facility] Comment on above: Performed By: #### B MP #### [facility] [address] [place] [address] Dr. Alysa Martinez EGFR-NON AF IRISH >60 Normal >=60 [facility] Comment on above: Performed By: #### R F #### [facility] [address] [address] [address] Alysa Martinez Glucose [Mass/Vol] 189 mg/dL Critically high 74-106 [facility] Comment on above: Performed By: #### B MP #### [facility] [address] [place] [address] Dr. Alysa Martinez Glucose [Mass/Vol] 125 mg/dL Critically high 74-106 [facility] Comment on above: Performed By: #### R F #### [facility] [address] [address] [address] Alysa Martinez Potassium [Moles/Vol] 2.6 mmol/L Critically low 3.5-5.1 [facility] Comment on above: Performed By: #### B MP #### [facility] [address] [address] [address] Alysa Martinez Potassium [Moles/Vol] 3.0 mmol/L Critically low 3.5-5.1 [facility] Comment on above: Performed By: #### R F #### [facility] [address] [address] [address] Alysa Martinez Sodium [Moles/Vol] 143 mmol/L Normal 136-145 [facility] Comment on above: Performed By: #### B MP #### [facility] [address] [address] [address] Alysa Martinez Sodium [Moles/Vol] 146 mmol/L Critically high 136-145 [facility] Comment on above: Performed By: #### R F #### [facility] [address] [address] [address] Alysa Martinez Urea nitrogen [Mass/Vol] 8.0 mg/dL Normal 7.0-18.0 [facility] Comment on above: Performed By: #### B MP #### [facility] [address] [address] [address] Alysa Martinez Urea nitrogen [Mass/Vol] 9.0 mg/dL Normal 7.0-18.0 [facility] Comment on above: Performed By: #### R F #### [facility] [address] [address] [address] Alysa Martinez Urea nitrogen/Creatinine [Mass ratio] 10.7 mg/mg Normal [facility] Comment on above: Performed By: #### B MP #### [facility] [address] [address] [address] Alysa Martinez Urea nitrogen/Creatinine [Mass ratio] 13.4 mg/mg Normal [facility] Comment on above: Performed By: #### R F #### [facility] [address] [place] [address] Dr. Alysa Martinez CAROLINE by IFAon 01-12-2023 Antinuclear Antibodies, IFA Negative Normal [facility] Comment on above: Result Comment: Nega tive <1:80 Borderline 1:80 Positive >1:80 ICAP nomenclature: AC-0 For more information about Hep-2 cell patterns use ANApatterns.org, the official website for the International Consensus on Antinuclear Antibody (CAROLINE) Patterns (ICAP). Performed By: #### P HOS, BMP, MG #### [facility] [address] [place] [address] Dr. Alysa Martinez MAGNESIUMon 01-12-2023 Magnesium [Mass/Vol] 2.4 mg/dL Normal 1.8-2.4 [facility] Comment on above: Performed By: #### P HOS, BMP, MG #### [facility] [address] [place] [address] Dr. Alysa Martinez PHOSPHORUSon 01-12-2023 Phosphate [Mass/Vol] 3.2 mg/dL Normal 2.6-4.7 [facility] Comment on above: Performed By: #### P HOS, BMP, MG #### [facility] [address] [place] [address] Dr. Alysa Martinez PROF CHEM 8 (BAS METB)on Anion gap [Moles/Vol] 8.0 mmol/L Normal [facility] Comment on above: Performed By: #### P HOS, BMP, MG #### [facility] [address] [place] [address] Dr. Alysa Martinez Anion gap [Moles/Vol] 9.9 mmol/L Normal [facility] Comment on above: Performed By: #### P HOS, BMP, MG #### [facility] [address] [place] [address] Dr. Alysa Martinez Calcium [Mass/Vol] 7.8 mg/dL Critically low 8.5-10.1 [facility] Comment on above: Performed By: #### P HOS, BMP, MG #### [facility] [address] [place] [address] Dr. Alysa Martinez Calcium [Mass/Vol] 7.7 mg/dL Critically low 8.5-10.1 [facility] Comment on above: Performed By: #### P HOS, BMP, MG #### [facility] [address] [address] [address] Alysa Martinez Chloride [Moles/Vol] 100 mmol/L Normal 98-107 [facility] Comment on above: Performed By: #### P HOS, BMP, MG #### [facility] [address] [address] [address] Alysa Martinez Chloride [Moles/Vol] 100 mmol/L Normal 98-107 [facility] Comment on above: Performed By: #### P HOS, BMP, MG #### [facility] [address] [place] [address] Dr. Alysa Martinez CO2 [Moles/Vol] 37.5 mmol/L Critically high 21.0-32.0 [facility] Comment on above: Performed By: #### P HOS, BMP, MG #### [facility] [address] [place] [address] Dr. Alysa Martinez CO2 [Moles/Vol] 33.4 mmol/L Critically high 21.0-32.0 [facility] Comment on above: Performed By: #### P HOS, BMP, MG #### [facility] [address] [place] [address] Dr. Alysa Martinez Creatinine [Mass/Vol] 0.67 mg/dL Normal 0.55-1.02 [facility] Comment on above: Performed By: #### P HOS, BMP, MG #### [facility] [address] [place] [address] Dr. Alysa Martinez Creatinine [Mass/Vol] 0.69 mg/dL Normal 0.55-1.02 [facility] Comment on above: Performed By: #### P HOS, BMP, MG #### [facility] [address] [address] [address] Alysa Martinez EGFR-AF IRISH >60 Normal >=[address] [facility] Comment on above: Performed By: #### P HOS, BMP, MG #### [facility] [address] [address] [address] Alysa Martinez EGFR-AF IRISH >60 Normal >=60 [facility] Comment on above: Performed By: #### P HOS, BMP, MG #### [facility] [address] [address] [address] Alysa Martinez EGFR-NON AF IRISH >60 Normal >=60 [facility] Comment on above: Performed By: #### P HOS, BMP, MG #### [facility] [address] [address] [address] Alysa Martinez EGFR-NON AF IRISH >60 Normal >=60 [facility] Comment on above: Performed By: #### P HOS, BMP, MG #### [facility] [address] [address] [address] Alysa Martinez Glucose [Mass/Vol] 130 mg/dL Critically high 74-106 [facility] Comment on above: Performed By: #### P HOS, BMP, MG #### [facility] [address] [address] [address] Alysa Martinez Glucose [Mass/Vol] 140 mg/dL Critically high 74-106 [facility] Comment on above: Performed By: #### P HOS, BMP, MG #### [facility] [address] [address] [address] Alysa Martinez Potassium [Moles/Vol] 1.5 mmol/L Critically low 3.5-5.1 [facility] Comment on above: Performed By: #### P HOS, BMP, MG #### [facility] [address] [address] [address] Alysa Martinez Potassium [Moles/Vol] 2.3 mmol/L Critically low 3.5-5.1 [facility] Comment on above: Performed By: #### P HOS, BMP, MG #### [facility] [address] [address] [address] Alysa Martinez Sodium [Moles/Vol] 144 mmol/L Normal 136-145 [facility] Comment on above: Performed By: #### P HOS, BMP, MG #### [facility] [address] [address] [address] Alysa Martinez Sodium [Moles/Vol] 142 mmol/L Normal 136-145 [facility] Comment on above: Performed By: #### P HOS, BMP, MG #### [facility] [address] [address] [address] Alysa Martinez Urea nitrogen [Mass/Vol] 9.0 mg/dL Normal 7.0-18.0 [facility] Comment on above: Performed By: #### P HOS, BMP, MG #### [facility] [address] [address] [address] Alysa Martinez Urea nitrogen [Mass/Vol] 8.0 mg/dL Normal 7.0-18.0 [facility] Comment on above: Performed By: #### P HOS, BMP, MG #### [facility] [address] [place] [address] Dr. Alysa Martinez Urea nitrogen/Creatinine [Mass ratio] 13.4 mg/mg Normal [facility] Comment on above: Performed By: #### P HOS, BMP, MG #### [facility] [address] [place] [address] Dr. Alysa Martinez Urea nitrogen/Creatinine [Mass ratio] 11.6 mg/mg Normal [facility] Comment on above: Performed By: #### P HOS, BMP, MG #### [facility] [address] [place] [address] Dr. Alysa Martinez US KIDNEYS BLADDERon 023 US KIDNEYS BLADDER EXAMINATION: US KIDNEYS [...] KATE ALVARENGA Date: 2023-01-12 10:59 Normal [facility] ANTISTREPTOLYSIN O AB (ASO)o n 01-11-2023 Antistreptolysin O Ab 81.7 IU/mL Normal 0.0-200.0 [facility] Comment on above: Performed By: #### P HOS, BMP, MG #### [facility] [address] [place] [address] Dr. Alysa Martinez CREATININE URINEon URINE CREAT 27.01 mg/dL Normal 20.00-300.00 [facility] Comment on above: Performed By: #### B MP #### [facility] [address] [place] [address] Dr. Alysa Martinez MAGNESIUMon 01-11-2023 Magnesium [Mass/Vol] 1.6 mg/dL Critically low 1.8-2.4 [facility] Comment on above: Performed By: #### P HOS, BMP, MG #### [facility] [address] [place] [address] Dr. Alysa Martinez Magnesium [Mass/Vol] 2.0 mg/dL Normal 1.8-2.4 [facility] Comment on above: Performed By: #### M G, CMP #### [facility] [address] [place] [address] Dr. Alysa Martinez Magnesium [Mass/Vol] 1.7 mg/dL Critically low 1.8-2.4 [facility] Comment on above: Performed By: #### P HOS, BMP, MG #### [facility] [address] [place] [address] Dr. Alysa Martinez PH URINEon 01-11-2023 pH (U) 6.0 [pH] Normal 5-9 [facility] Comment on above: Performed By: #### R F #### [facility] [address] [place] [address] Dr. Alysa Martinez PHOSPHORUSon 01-11-2023 Phosphate [Mass/Vol] 2.4 mg/dL Critically low 2.6-4.7 [facility] Comment on above: Performed By: #### P HOS, BMP, MG #### [facility] [address] [place] [address] Dr. Alysa Martinez POTASSIUMon 01-11-2023 Potassium [Moles/Vol] 1.6 mmol/L Critically low 3.5-5.1 [facility] Comment on above: Performed By: #### M G, CMP #### [facility] [address] [place] [address] Dr. Alysa Martinez POTASSIUM URINEon 01-11-2023 UR POTASSIUM 11.2 mmol/L Normal [facility] Comment on above: Performed By: #### P HOS, BMP, MG #### [facility] [address] [place] [address] Dr. Alysa Martinez PROF CHEM 8 (BAS METB)on Anion gap [Moles/Vol] 8.9 mmol/L Normal [facility] Comment on above: Performed By: #### P HOS, BMP, MG #### [facility] [address] [place] [address] Dr. Alysa Martinez Calcium [Mass/Vol] 7.4 mg/dL Critically low 8.5-10.1 [facility] Comment on above: Performed By: #### P HOS, BMP, MG #### [facility] [address] [place] [address] Dr. Alysa Martinez Chloride [Moles/Vol] 95 mmol/L Critically low 98-107 [facility] Comment on above: Performed By: #### P HOS, BMP, MG #### [facility] [address] [place] [address] Dr. Alysa Martinez CO2 [Moles/Vol] 36.6 mmol/L Critically high 21.0-32.0 [facility] Comment on above: Performed By: #### P HOS, BMP, MG #### [facility] [address] [address] [address] Alysa Martinez Creatinine [Mass/Vol] 0.96 mg/dL Normal 0.55-1.02 [facility] Comment on above: Performed By: #### P HOS, BMP, MG #### [facility] [address] [address] [address] Alysa Martinez EGFR-AF IRISH >60 Normal >=60 [facility] Comment on above: Performed By: #### P HOS, BMP, MG #### [facility] [address] [address] [address] Alysa Martinez EGFR-NON AF IRISH >60 Normal >=60 [facility] Comment on above: Performed By: #### P HOS, BMP, MG #### [facility] [address] [address] [address] Alysa Martinez Glucose [Mass/Vol] 215 mg/dL Critically high 74-106 [facility] Comment on above: Performed By: #### P HOS, BMP, MG #### [facility] [address] [address] [address] Alysa Martinez Potassium [Moles/Vol] 1.5 mmol/L Critically low 3.5-5.1 [facility] Comment on above: Performed By: #### P HOS, BMP, MG #### [facility] [address] [address] [address] Alysa Martinez Sodium [Moles/Vol] 138 mmol/L Normal 136-145 [facility] Comment on above: Performed By: #### P HOS, BMP, MG #### [facility] [address] [address] [address] Alysa Martinez Urea nitrogen [Mass/Vol] 12.0 mg/dL Normal 7.0-18.0 [facility] Comment on above: Performed By: #### P HOS, BMP, MG #### [facility] [address] [address] [address] Alysa Martinez Urea nitrogen/Creatinine [Mass ratio] 12.5 mg/mg Normal [facility] Comment on above: Performed By: #### P HOS, BMP, MG #### [facility] [address] [place] [address] Dr. Alysa Martinez RHEUMATOID FACTORon 01-12-20 RA Latex Turbid. 10.7 IU/mL Normal <14.0 [facility] Comment on above: Performed By: #### R F #### [facility] [address] [place] [address] Dr. Alysa Martinez SODIUM RANDOM URINEon 2022 Sodium (U) [Moles/Vol] 16 mmol/L Critically low 30-90 [facility] Comment on above: Performed By: #### P HOS, BMP, MG #### [facility] [address] [place] [address] Dr. Alysa Martinez UA RANDOMon 01-11-2023 Bilirubin Ql (U) Negative Normal NEGATIVE [facility] Comment on above: Performed By: #### P HOS, BMP, MG #### [facility] [address] [place] [address] Dr. Alysa Martinez Clarity (U) CLEAR Normal CLEAR [facility] Comment on above: Performed By: #### P HOS, BMP, MG #### [facility] [address] [address] [address] Alysa Martinez Color (U) LT. YELLOW Normal YELLOW [facility] Comment on above: Performed By: #### P HOS, BMP, MG #### [facility] [address] [place] [address] Dr. Alysa Martinez Glucose Ql (U) Negative Normal NEGATIVE [facility] Comment on above: Performed By: #### P HOS, BMP, MG #### [facility] [address] [place] [address] Dr. Alysa Martinez Hemoglobin Ql (U) TRACE-INTACT Abnormal NEGATIVE [facility] Comment on above: Performed By: #### P HOS, BMP, MG #### [facility] [address] [place] [address] Dr. Alysa Martinez Ketones Ql (U) Negative Normal NEGATIVE [facility] Comment on above: Performed By: #### P HOS, BMP, MG #### [facility] [address] [place] [address] Dr. Alysa Martinez LEUKOCYTES Negative Normal NEGATIVE [facility] Comment on above: Performed By: #### P HOS, BMP, MG #### [facility] [address] [place] [address] Dr. Alysa Martinez Nitrite Ql (U) Negative Normal NEGATIVE [facility] Comment on above: Performed By: #### P HOS, BMP, MG #### [facility] [address] [place] [address] Dr. Alysa Martinez pH (U) 7.5 [pH] Normal 5-9 [facility] Comment on above: Performed By: #### P HOS, BMP, MG #### [facility] [address] [place] [address] Dr. Alysa Martinez SPEC GRAVITY <=1.005 Abnormal 1.005-<=1.025 [facility] Comment on above: Performed By: #### P HOS, BMP, MG #### [facility] [address] [place] [address] Dr. Alysa Martinez UA PROTEIN Negative Normal NEGATIVE/ TRACE [facility] Comment on above: Performed By: #### P HOS, BMP, MG #### [facility] [address] [place] [address] Dr. Alysa Martinez Urobilinogen Qn (U) 0.2 {Bridget'U}/dL Normal 0.2 - 1. 0 [facility] Comment on above: Performed By: #### P HOS, BMP, MG #### [facility] [address] [place] [address] Dr. Alysa Martinez CALCIUM URINEon 01-10-2023 UR CALCIUM 1.1 mg/dL Critically low 5.1-21.[address] [facility] Comment on above: Performed By: #### B MP #### [facility] [address] [place] [address] Dr. Alysa Martinez CBC AUTO DIFFon 01-10-2023 BASO # 0.0 103/ul Normal 0.0-0.1 [facility] Comment on above: Performed By: #### P HOS, BMP, MG #### [facility] [address] [place] [address] Dr. Alysa Martinez Basophils/100 WBC (Bld) 0.3 % Normal 0.2-2.0 [facility] Comment on above: Performed By: #### P HOS, BMP, MG #### [facility] [address] [place] [address] Dr. Alysa Martinez EO # 0.3 103/ul Normal 0.0-0.7 [facility] Comment on above: Performed By: #### P HOS, BMP, MG #### [facility] [address] [place] [address] Dr. Alysa Martinez Eosinophils/100 WBC (Bld) 3.6 % Normal 0.9-7.0 [facility] Comment on above: Performed By: #### P HOS, BMP, MG #### [facility] [address] [place] [address] Dr. Alysa Martinez Erythrocyte distribution width (RBC) [Ratio] 18.1 % Critically high 11.0-15.0 [facility] Comment on above: Performed By: #### P HOS, BMP, MG #### [facility] [address] [place] [address] Dr. Alysa Martinez Hematocrit (Bld) [Volume fraction] 41.5 % Normal 36.0-48.0 [facility] Comment on above: Performed By: #### P HOS, BMP, MG #### [facility] [address] [place] [address] Dr. Alysa Martinez Hemoglobin (Bld) [Mass/Vol] 13.0 g/dL Normal 12.0-16.0 [facility] Comment on above: Performed By: #### P HOS, BMP, MG #### [facility] [address] [place] [address] Dr. Alysa Martinez IG # 0.02 10e3/ul Normal 0.00-0.03 [facility] Comment on above: Performed By: #### P HOS, BMP, MG #### [facility] [address] [place] [address] Dr. Alysa Martinez IG % 0.3 % Normal 0.0-0.5 [facility] Comment on above: Performed By: #### P HOS, BMP, MG #### [facility] [address] [place] [address] Dr. Alysa Martinez LYMPH # 1.3 103/ul Normal 1.2-3.8 [facility] Comment on above: Performed By: #### P HOS, BMP, MG #### [facility] [address] [place] [address] Dr. Alysa Martinez Lymphocytes/100 WBC (Bld) 19.4 % Critically low 20.5-60.0 [facility] Comment on above: Performed By: #### P HOS, BMP, MG #### [facility] [address] [place] [address] Dr. Alysa Martinez MANUAL DIFF REQ NO Normal [facility] Comment on above: Performed By: #### P HOS, BMP, MG #### [facility] [address] [place] [address] Dr. Alysa Martinez MCH (RBC) [Entitic mass] 25.9 pg Critically low 26.7-34.0 [facility] Comment on above: Performed By: #### P HOS, BMP, MG #### [facility] [address] [place] [address] Dr. Alysa Martinez MCHC (RBC) [Mass/Vol] 31.3 g/dL Normal 29.9-35.2 [facility] Comment on above: Performed By: #### P HOS, BMP, MG #### [facility] [address] [place] [address] Dr. Alysa Martinez MCV (RBC) [Entitic vol] 82.8 fL Normal 81.0-99.0 [facility] Comment on above: Performed By: #### P HOS, BMP, MG #### [facility] [address] [place] [address] Dr. Alysa Martinez MONO # 0.4 103/ul Normal 0.3-0.8 [facility] Comment on above: Performed By: #### P HOS, BMP, MG #### [facility] [address] [address] [address] Alysa Martinez Monocytes/100 WBC (Bld) 5.9 % Normal 1.7-12.0 [facility] Comment on above: Performed By: #### P HOS, BMP, MG #### [facility] [address] [place] [address] Dr. Alysa Martinez NEUT # 4.9 103/ul Normal 1.4-6.5 [facility] Comment on above: Performed By: #### P HOS, BMP, MG #### [facility] [address] [place] [address] Dr. Alysa Martinez Neutrophils/100 WBC (Bld) 70.5 % Normal 43.0-75.0 [facility] Comment on above: Performed By: #### P HOS, BMP, MG #### [facility] [address] [place] [address] Dr. Alysa Martinez Platelet mean volume (Bld) [Entitic vol] 9.4 fL Critically low 9.5-13.5 [facility] Comment on above: Performed By: #### P HOS, BMP, MG #### [facility] [address] [place] [address] Dr. Alysa Martinez PLT 158 103/ul Normal 150-450 [facility] Comment on above: Performed By: #### P HOS, BMP, MG #### [facility] [address] [place] [address] Dr. Alysa Martinez RBC 5.01 106/ul Normal 4.20-5.40 [facility] Comment on above: Performed By: #### P HOS, BMP, MG #### [facility] [address] [place] [address] Dr. Alysa Martinez WBC 6.9 103/ul Normal 4.0-11.0 [facility] Comment on above: Performed By: #### P HOS, BMP, MG #### [facility] [address] [place] [address] Dr. Alysa Martinez CRPon 01-10-2023 CRP 12.0 mg/dL Critically high <=1.0 [facility] Comment on above: Performed By: #### P HOS, BMP, MG #### [facility] [address] [place] [address] Dr. Alysa Martinez Covid-19 PCR ([facility])on 12-18 SARS-CoV-2 (COVID-19) RNA MARITA+probe Ql (Unsp spec) Not detected Normal NOT DETECTED [facility] Comment on above: Result Comment: When [...] for this test is supported by the [place] of Health and Human Service's declaration that [...] used). Performed By: #### R F #### [facility] [address] [place] [address] Dr. Alysa Martinez IRONon 01-10-2023 Iron [Mass/Vol] 55.0 ug/dL Normal 50.0-170.0 [facility] Comment on above: Performed By: #### M G, CMP #### [facility] [address] [place] [address] Dr. Alysa Martinez MAGNESIUMon 01-10-2023 Magnesium [Mass/Vol] 0.5 mg/dL Critically low 1.8-2.4 [facility] Comment on above: Performed By: #### B MP #### [facility] [address] [place] [address] Dr. Alysa Martinez Magnesium [Mass/Vol] 1.0 mg/dL Critically low 1.8-2.4 [facility] Comment on above: Performed By: #### M G, CMP #### [facility] [address] [place] [address] Dr. Alysa Martinez PHOSPHORUSon 01-10-2023 Phosphate [Mass/Vol] 2.5 mg/dL Critically low 2.6-4.7 [facility] Comment on above: Performed By: #### M G, CMP #### [facility] [address] [place] [address] Dr. Alysa Martinez POTASSIUMon 01-10-2023 Potassium [Moles/Vol] 1.2 mmol/L Critically low 3.5-5.1 [facility] Comment on above: Performed By: #### B MP #### [facility] [address] [place] [address] Dr. Alysa Martinez PROF 14(COMP METB)on 023 Albumin [Mass/Vol] 3.4 g/dL Normal 3.4-5.0 [facility] Comment on above: Performed By: #### P HOS, BMP, MG #### [facility] [address] [place] [address] Dr. Alysa Martinez Albumin/Globulin [Mass ratio] 1.2 {ratio} Normal [facility] Comment on above: Performed By: #### P HOS, BMP, MG #### [facility] [address] [place] [address] Dr. Alysa Martinez ALP [Catalytic activity/Vol] 70 U/L Normal 46-116 [facility] Comment on above: Performed By: #### P HOS, BMP, MG #### [facility] [address] [place] [address] Dr. Alysa Martinez ALT [Catalytic activity/Vol] 36 U/L Normal 14-59 [facility] Comment on above: Performed By: #### P HOS, BMP, MG #### [facility] [address] [place] [address] Dr. Alysa Martinez Anion gap [Moles/Vol] 11.1 mmol/L Normal [facility] Comment on above: Performed By: #### P HOS, BMP, MG #### [facility] [address] [place] [address] Dr. Alysa Martinez AST [Catalytic activity/Vol] 79 U/L Critically high 15-37 [facility] Comment on above: Performed By: #### P HOS, BMP, MG #### [facility] [address] [place] [address] Dr. Alysa Martinez Bilirubin [Mass/Vol] 0.6 mg/dL Normal 0.2-1.0 [facility] Comment on above: Performed By: #### P HOS, BMP, MG #### [facility] [address] [place] [address] Dr. Alysa Martinez Calcium [Mass/Vol] 7.8 mg/dL Critically low 8.5-10.1 [facility] Comment on above: Performed By: #### P HOS, BMP, MG #### [facility] [address] [place] [address] Dr. Alysa Martinez Chloride [Moles/Vol] 90 mmol/L Critically low 98-107 [facility] Comment on above: Performed By: #### P HOS, BMP, MG #### [facility] [address] [place] [address] Dr. Alysa Martinez CO2 [Moles/Vol] 38.1 mmol/L Critically high 21.0-32.0 [facility] Comment on above: Performed By: #### P HOS, BMP, MG #### [facility] [address] [place] [address] Dr. Alysa Martinez Creatinine [Mass/Vol] 0.92 mg/dL Normal 0.55-1.02 [facility] Comment on above: Performed By: #### P HOS, BMP, MG #### [facility] [address] [place] [address] Dr. Alysa Martinez EGFR-AF IRISH >60 Normal >=[address] [facility] Comment on above: Performed By: #### P HOS, BMP, MG #### [facility] [address] [place] [address] Dr. Alysa Martinez EGFR-NON AF IRISH >60 Normal >=60 [facility] Comment on above: Performed By: #### P HOS, BMP, MG #### [facility] [address] [address] [address] Alysa Martinez Globulin (S) [Mass/Vol] 2.9 g/dL Normal [facility] Comment on above: Performed By: #### P HOS, BMP, MG #### [facility] [address] [place] [address] Dr. Alysa Martinez Glucose [Mass/Vol] 136 mg/dL Critically high 74-106 [facility] Comment on above: Performed By: #### P HOS, BMP, MG #### [facility] [address] [place] [address] Dr. Alysa Martinez Potassium [Moles/Vol] 1.2 mmol/L Critically low 3.5-5.1 [facility] Comment on above: Performed By: #### P HOS, BMP, MG #### [facility] [address] [place] [address] Dr. Alysa Martinez Protein [Mass/Vol] 6.3 g/dL Critically low 6.4-8.2 [facility] Comment on above: Performed By: #### P HOS, BMP, MG #### [facility] [address] [place] [address] Dr. Alysa Martinez Sodium [Moles/Vol] 138 mmol/L Normal 136-145 [facility] Comment on above: Performed By: #### P HOS, BMP, MG #### [facility] [address] [place] [address] Dr. Alysa Martinez Urea nitrogen [Mass/Vol] 12.0 mg/dL Normal 7.0-18.0 [facility] Comment on above: Performed By: #### P HOS, BMP, MG #### [facility] [address] [place] [address] Dr. Alysa Martinez Urea nitrogen/Creatinine [Mass ratio] 13.0 mg/mg Normal [facility] Comment on above: Performed By: #### P HOS, BMP, MG #### [facility] [address] [place] [address] Dr. Alysa Martinez PROF CHEM 8 (BAS METB)on Anion gap [Moles/Vol] 5.6 mmol/L Normal [facility] Comment on above: Performed By: #### M G, CMP #### [facility] [address] [place] [address] Dr. Alysa Martinez Calcium [Mass/Vol] 7.2 mg/dL Critically low 8.5-10.1 [facility] Comment on above: Performed By: #### M G, CMP #### [facility] [address] [place] [address] Dr. Alysa Martinez Chloride [Moles/Vol] 94 mmol/L Critically low 98-107 [facility] Comment on above: Performed By: #### M G, CMP #### [facility] [address] [place] [address] Dr. Alysa Martinez CO2 [Moles/Vol] 38.8 mmol/L Critically high 21.0-32.0 [facility] Comment on above: Performed By: #### M G, CMP #### [facility] [address] [place] [address] Dr. Alysa Martinez Creatinine [Mass/Vol] 0.90 mg/dL Normal 0.55-1.02 [facility] Comment on above: Performed By: #### M G, CMP #### [facility] [address] [place] [address] Dr. Alysa Martinez EGFR-AF IRISH >60 Normal >=60 [facility] Comment on above: Performed By: #### M G, CMP #### [facility] [address] [place] [address] Dr. Alysa Martinez EGFR-NON AF IRISH >60 Normal >=60 [facility] Comment on above: Performed By: #### M G, CMP #### [facility] [address] [place] [address] Dr. Alysa Martinez Glucose [Mass/Vol] 154 mg/dL Critically high 74-106 [facility] Comment on above: Performed By: #### M G, CMP #### [facility] [address] [place] [address] Dr. Alysa Martinez Potassium [Moles/Vol] 1.4 mmol/L Critically low 3.5-5.1 [facility] Comment on above: Performed By: #### M G, CMP #### [facility] [address] [address] [address] Alysa Martinez Sodium [Moles/Vol] 137 mmol/L Normal 136-145 [facility] Comment on above: Performed By: #### M G, CMP #### [facility] [address] [address] [address] Alysa Martinez Urea nitrogen [Mass/Vol] 11.0 mg/dL Normal 7.0-18.0 [facility] Comment on above: Performed By: #### M G, CMP #### [facility] [address] [place] [address] Dr. Alysa Martinez Urea nitrogen/Creatinine [Mass ratio] 12.2 mg/mg Normal [facility] Comment on above: Performed By: #### M G, CMP #### [facility] [address] [place] [address] Dr. Alysa Martinez URIC ACID SERUMon 01-10-2023 Urate [Mass/Vol] 3.2 mg/dL Normal 2.6-6.0 [facility] Comment on above: Performed By: #### P HOS, BMP, MG #### [facility] [address] [place] [address] Dr. Alysa Martinez VITAMIN D 25 OHon 01-10-2023 VIT D 25-OH 10.0 ng/mL Normal [facility] Comment on above: Performed By: #### M G, CMP #### [facility] [address] [place] [address] Dr. Alysa Martinez VIT D RANGES SEE BELOW Normal [facility] Comment on above: Result Comment: <20 ng/mL Vit D deficient 20 - <30 ng/mL Vit D insufficient 30 - 100 ng/mL Vit D sufficient >100 ng/mL Potential Toxicity Performed By: #### M G, CMP #### [facility] [address] [place] [address] Dr. Alysa Martinez Office Visit (Cardiology)on 12-18-2022 [...] we can help. You may also call [phone] for free resources and assistance.; Status:Complete - [...] Recorded: 18Dec2022 10:05AM Heart Rate80, R Radial [id number], LUE, Sitting [id number], LUE, Sitting Height5 ft 8 in [id number] lb 2 oz BMI Olwjziesvp86.17 kg/m2 BSA Calculated2.12 Tobacco Usea) Yes Patient [...] Screening.on 023 Adult depression screening assessment No [facility] [address] DO Work Phone: Fall risk assessment a) No falls within the last year [facility] [address] DO Work Phone: Tobacco use status CP a) Yes [facility] 250 DO Work Phone: Tobacco Screening. Yes [facility] [address] DO Work Phone: CBC AUTO DIFFon 09-18-2022 BASO # 0.0 103/ul Normal 0.0-0.1 [facility] Comment on above: Performed By: #### M G, CMP #### [facility] [address] [place] [address] Dr. Alysa Martinez Basophils/100 WBC (Bld) 0.3 % Normal 0.2-2.0 [facility] Comment on above: Performed By: #### M G, CMP #### [facility] [address] [place] [address] Dr. Alysa Martinez EO # 0.2 103/ul Normal 0.0-0.7 [facility] Comment on above: Performed By: #### M G, CMP #### [facility] [address] [place] [address] Dr. Alysa Martinez Eosinophils/100 WBC (Bld) 2.2 % Normal 0.9-7.0 [facility] Comment on above: Performed By: #### M G, CMP #### [facility] [address] [place] [address] Dr. Alysa Martinez Erythrocyte distribution width (RBC) [Ratio] 18.7 % Critically high 11.0-15.0 [facility] Comment on above: Performed By: #### M G, CMP #### [facility] [address] [place] [address] Dr. Alysa Martinez Hematocrit (Bld) [Volume fraction] 44.0 % Normal 36.0-48.0 [facility] Comment on above: Performed By: #### M G, CMP #### [facility] [address] [place] [address] Dr. Alysa Martinez Hemoglobin (Bld) [Mass/Vol] 13.3 g/dL Normal 12.0-16.0 [facility] Comment on above: Performed By: #### M G, CMP #### [facility] [address] [place] [address] Dr. Alysa Martinez IG # 0.03 10e3/ul Normal 0.00-0.03 [facility] Comment on above: Performed By: #### M G, CMP #### [facility] [address] [place] [address] Dr. Alysa Martinez IG % 0.3 % Normal 0.0-0.5 [facility] Comment on above: Performed By: #### M G, CMP #### [facility] [address] [place] [address] Dr. Alysa Martinez LYMPH # 1.5 103/ul Normal 1.2-3.8 [facility] Comment on above: Performed By: #### M G, CMP #### [facility] [address] [place] [address] Dr. Alysa Martinez Lymphocytes/100 WBC (Bld) 17.4 % Critically low 20.5-60.0 [facility] Comment on above: Performed By: #### M G, CMP #### [facility] [address] [place] [address] Dr. Alysa Martinez MANUAL DIFF REQ NO Normal [facility] Comment on above: Performed By: #### M G, CMP #### [facility] [address] [address] [address] Alysa Martinez MCH (RBC) [Entitic mass] 23.5 pg Critically low 26.7-34.0 [facility] Comment on above: Performed By: #### M G, CMP #### [facility] [address] [place] [address] Dr. Alysa Martinez MCHC (RBC) [Mass/Vol] 30.2 g/dL Normal 29.9-35.2 [facility] Comment on above: Performed By: #### M G, CMP #### [facility] [address] [place] [address] Dr. Alsya Martinez MCV (RBC) [Entitic vol] 77.9 fL Critically low 81.0-99.0 [facility] Comment on above: Performed By: #### M G, CMP #### [facility] [address] [place] [address] Dr. Alysa Martinez MONO # 0.6 103/ul Normal 0.3-0.8 [facility] Comment on above: Performed By: #### M G, CMP #### [facility] [address] [place] [address] Dr. Alysa Martinez Monocytes/100 WBC (Bld) 6.7 % Normal 1.7-12.0 [facility] Comment on above: Performed By: #### M G, CMP #### [facility] [address] [place] [address] Dr. Alysa Martinez NEUT # 6.5 103/ul Normal 1.4-6.5 [facility] Comment on above: Performed By: #### M G, CMP #### [facility] [address] [place] [address] Dr. Alysa Martinez Neutrophils/100 WBC (Bld) 73.1 % Normal 43.0-75.0 [facility] Comment on above: Performed By: #### M G, CMP #### [facility] [address] [place] [address] Dr. Alysa Martinez Platelet mean volume (Bld) [Entitic vol] 8.8 fL Critically low 9.5-13.5 [facility] Comment on above: Performed By: #### M G, CMP #### [facility] [address] [place] [address] Dr. Alysa Martinez PLT 222 103/ul Normal 150-450 [facility] Comment on above: Performed By: #### M G, CMP #### [facility] [address] [address] [address] Alysa Martinez RBC 5.65 106/ul Critically high 4.20-5.40 [facility] Comment on above: Performed By: #### M G, CMP #### [facility] [address] [address] [address] Alysa Martinez WBC 8.8 103/ul Normal 4.0-11.0 [facility] Comment on above: Performed By: #### M G, CMP #### [facility] [address] [place] [address] Dr. Alysa Martinez FREE T3on 09-18-2022 FREE T3 2.16 pg/mlL Critically low 2.18-3.98 [facility] Comment on above: Performed By: #### B MP #### [facility] [address] [place] [address] Dr. Alysa Martinez GLYCOHEMOGLOBIN A1Con 2021 ADA RECOMMENDATION SEE BELOW Normal [facility] Comment on above: Result Comment: ADA RECOMMENDED LIMIT 4.0 - 6.0 ADA THERAPEUTIC TARGET < 7.0 ACTION SUGGESTED > 7.0 Performed By: #### R F #### [facility] [address] [place] [address] Dr. Alysa Martinez Glucose [Mass/Vol] 223 mg/dL Normal [facility] Comment on above: Performed By: #### R F #### [facility] [address] [place] [address] Dr. Alysa Martinez HbA1c (Bld) [Mass fraction] 9.4 % Critically high 4.5-6.2 [facility] Comment on above: Performed By: #### R F #### [facility] [address] [place] [address] Dr. Alysa Martinez LIPID PROFILEon 09-18-2022 CHOL-HDL RATIO NORM SEE BELOW Normal [facility] Comment on above: Result Comment: 3.3 - 4.4 LOW RISK 4.4 - 7.1 AVERAGE RISK 7.1 - 11.0 MODERATE RISK >11.0 HIGH RISK Performed By: #### B MP #### [facility] [address] [address] [address] Alysa Martinez Cholesterol [Mass/Vol] 123 mg/dL Normal <=200 [facility] Comment on above: Performed By: #### B MP #### [facility] [address] [address] [address] Alysa Martinez Cholesterol in HDL [Mass/Vol] 31 mg/dL Critically low 40-60 [facility] Comment on above: Performed By: #### B MP #### [facility] [address] [address] [address] Alysa Martinez Cholesterol in LDL [Mass/Vol] 53.0 mg/dL Normal [facility] Comment on above: Performed By: #### B MP #### [facility] [address] [address] [address] Alysa Martinez Cholesterol.total/Cho lesterol in HDL [Mass ratio] 4.0 {ratio} Normal [facility] Comment on above: Performed By: #### B MP #### [facility] [address] [address] [address] Alysa Martinez HDL NORMAL > or = 60 mg/dl - LO W CARDIOVASCULAR RISK <40 mg/dl - HIGH CARDIOVASCULAR RISK Normal [facility] Comment on above: Performed By: #### B MP #### [facility] [address] [address] [address] Alysa Martinze LDL CALC NORMAL SEE BELOW Normal [facility] Comment on above: Result Comment: <100 mg/dl OPTIMAL 100 - 129 mg/dl NEAR OR ABOVE OPTIMAL 130 - 159 mg/dl BORDERLINE HIGH 160 - 189 mg/dl HIGH >190 mg/dl VERY HIGH Performed By: #### B MP #### [facility] [address] [address] [address] Alysa Martinez Triglyceride [Mass/Vol] 195 mg/dL Critically high <=150 [facility] Comment on above: Performed By: #### B MP #### [facility] [address] [place] [address] Dr. Alysa Martinez VLDL CALC 39.0 mg/dL Normal [facility] Comment on above: Performed By: #### B MP #### [facility] [address] [address] [address] Alysa Martinez PROF 14(COMP METB)on 022 Albumin [Mass/Vol] 3.3 g/dL Critically low 3.4-5.0 [facility] Comment on above: Performed By: #### B MP #### [facility] [address] [place] [address] Dr. Alysa Martinez Albumin/Globulin [Mass ratio] 0.8 {ratio} Normal [facility] Comment on above: Performed By: #### B MP #### [facility] [address] [place] [address] Dr. Alysa Martinez ALP [Catalytic activity/Vol] 69 U/L Normal 46-116 [facility] Comment on above: Performed By: #### B MP #### [facility] [address] [place] [address] Dr. Alysa Martinez ALT [Catalytic activity/Vol] 20 U/L Normal 14-59 [facility] Comment on above: Performed By: #### B MP #### [facility] [address] [place] [address] Dr. Alysa Martinez Anion gap [Moles/Vol] 10.4 mmol/L Normal [facility] Comment on above: Performed By: #### B MP #### [facility] [address] [address] [address] Alysa Martinez AST [Catalytic activity/Vol] 11 U/L Critically low 15-37 [facility] Comment on above: Performed By: #### B MP #### [facility] [address] [place] [address] Dr. Alsya Martinez Bilirubin [Mass/Vol] 0.3 mg/dL Normal 0.2-1.0 [facility] Comment on above: Performed By: #### B MP #### [facility] [address] [address] [address] Alysa Martinez Calcium [Mass/Vol] 8.9 mg/dL Normal 8.5-10.1 [facility] Comment on above: Performed By: #### B MP #### [facility] [address] [address] [address] Alysa Martinez Chloride [Moles/Vol] 88 mmol/L Critically low 98-107 [facility] Comment on above: Performed By: #### B MP #### [facility] [address] [address] [address] Alysa Martinez CO2 [Moles/Vol] 33.7 mmol/L Critically high 21.0-32.0 [facility] Comment on above: Performed By: #### B MP #### [facility] [address] [address] [address] Alysa Martinez Creatinine [Mass/Vol] 0.78 mg/dL Normal 0.55-1.02 [facility] Comment on above: Performed By: #### B MP #### [facility] [address] [address] [address] Alysa Martinez EGFR-AF IRISH >60 Normal >=60 [facility] Comment on above: Performed By: #### B MP #### [facility] [address] [address] [address] Alysa Martinez EGFR-NON AF IRISH >60 Normal >=60 [facility] Comment on above: Performed By: #### B MP #### [facility] [address] [address] [address] Alysa Martinez Globulin (S) [Mass/Vol] 4.1 g/dL Normal [facility] Comment on above: Performed By: #### B MP #### [facility] [address] [address] [address] Alysa Martinez Glucose [Mass/Vol] 182 mg/dL Critically high 74-106 [facility] Comment on above: Performed By: #### B MP #### [facility] [address] [address] [address] Alysa Martinez Potassium [Moles/Vol] 4.1 mmol/L Normal 3.5-5.1 [facility] Comment on above: Performed By: #### B MP #### [facility] [address] [address] [address] Alysa Martinez Protein [Mass/Vol] 7.4 g/dL Normal 6.4-8.2 [facility] Comment on above: Performed By: #### B MP #### [facility] [address] [address] [address] Alysa Martinez Sodium [Moles/Vol] 128 mmol/L Critically low 136-145 [facility] Comment on above: Performed By: #### B MP #### [facility] [address] [place] [address] Dr. Alysa Martinez Urea nitrogen [Mass/Vol] 15.0 mg/dL Normal 7.0-18.0 [facility] Comment on above: Performed By: #### B MP #### [facility] [address] [address] [address] Alysa Martinez Urea nitrogen/Creatinine [Mass ratio] 19.2 mg/mg Normal [facility] Comment on above: Performed By: #### B MP #### [facility] [address] [place] [address] Dr. Alysa Martinez T4on 09-18-2022 T4 [Mass/Vol] 5.90 ug/dL Normal 4.80-13.90 [facility] Comment on above: Performed By: #### B MP #### [facility] [address] [address] [address] Alysa Martinez TSHon 09-18-2022 TSH 2.022 uIU/mL Normal 0.358-3.740 [facility] Comment on above: Performed By: #### B MP #### [facility] [address] [place] [address] Dr. Alysa Martinez VITAMIN D 25 OHon 09-18-2022 VIT D 25-OH 9.8 ng/mL Normal [facility] Comment on above: Performed By: #### P HOS, BMP, MG #### [facility] [address] [place], [place] [address] Dr. Alysa Martinez VIT D RANGES SEE BELOW Normal [facility] Comment on above: Result Comment: <20 ng/mL Vit D deficient 20 - <30 ng/mL Vit D insufficient 30 - 100 ng/mL Vit D sufficient >100 ng/mL Potential Toxicity Performed By: #### P HOS, BMP, MG #### [facility] [address] [place], [place] [address] Dr. Alysa Martinez Covid-19 PCR (CVDTBH)on 05-20 SARS-CoV-2 (COVID-19) RNA MARITA+probe Ql (Unsp spec) Not detected Normal NOT DETECTED [facility] Comment on above: Result Comment: This test is not yet approved or cleared by the [place] FDA. When there are no FDA-approved or cleared tests available, and other criteria are met, FDA can make tests available under an emergency access mechanism called an Emergency Use Authorization (EUA). The EUA for this test is supported by the Speech Lang Path Therapist of Health and Human Service's (HHS's) declaration [...] SARS-CoV-2. Performed By: #### B MP #### [facility] [address] [place], [place] [address] Dr. Alysa Martinez Covid-19 PCR (CVDTBH)on 04-18 SARS-CoV-2 (COVID-19) RNA MARITA+probe Ql (Unsp spec) Not detected Normal NOT DETECTED [facility] Comment on above: Result Comment: When [...] for this test is supported by the [place] of Health and Human Service's declaration that [...] longer be used). Performed By: #### P TRINITY BHARDWAJ MG #### [facility] [address] [place] [address] Dr. Alysa Martinez Physician Referralon 021 Physician Referral [phone] [id number]:127 Normal [facility] Physician Referralon 021 Physician Referral [phone] [phone] [id number]:127 [facility] Social History Date Type Detail Facility Occasional alcohol use Occasional alcohol use [facility] [employer] DO Work Phone: Comment on above: A FEW SATURDAYS; 4 BOTTLES DIET PEPSI ; 3/4 PPD; 1/2 PPD; Vital Signs Date Time Vital Sign Value Performing Clinician Faci lity 12-18-2022 10:05-0500 Body height 172.72 cm Rocío ITema Work Phone: [facility] [employer] DO Work Phone: 12-18-2022 10:05-0500 Body mass index (BMI) [Ratio] 33.17 kg/m2 [employer] Work Phone: [facility] [employer] [address] DO Work Phone: 12-18-2022 10:05-0500 Body surface area Derived from formula 2.12 m2 Rocío Maza Work Phone: [facility] [employer] 250 DO Work Phone: 12-18-2022 10:05-0500 Body weight 98.94 kg Rocío Maza Work Phone: [facility] [employer] [address] DO Work Phone: 12-18-2022 10:05-0500 Diastolic blood pressure 74 mm[Hg] Rocío Houy Work Phone: [facility] 250 DO Work Phone: 12-18-2022 10:05-0500 Heart rate 80 /min Rocío Maza Work Phone: [facility] [employer] [address] DO Work Phone: 12-18-2022 10:05-0500 Systolic blood pressure 128 mm[Hg] Rocío Maza Work Phone: [facility] [employer] DO Work Phone: Clinical Note 10-10-2022 Note Date & Type [...] by: MARY KATE ALVARENGA Date: 2022-10-10 11:06 [facility] Summary Purpose Family History No Family History Records FoundUnknown Family Member Name Dates Details FH: diabetes mellitus: Amadeo r(V18.0, Z83.3) Status:Active Family history of malignant neoplasm of prostate: Father(V16.42, Z80.42) Status:Active Unknown Family Member Name Dates Details FH: diabetes mellitus: Amadeo r(V18.0, Z83.3) Status:Active Family history of malignant [...] and content) DATE CREATED AUTHOR 03/16/2021 Nikko Mednoza [facility] DATE CREATED AUTHOR AUTHOR'S ORGANIZ ATION 12/19/2022 [facility] DATE CREATED AUTHOR AUTHOR'S ORGANIZ ATION 12/20/2022 [employer] DATE CREATED AUTHOR AUTHOR'S ORGANIZ ATION 02/24/2023 Saniya cruz FOR RECORDS PERTAINING TO PATIENTS WHO ARE [...] BE BASED ON THE PRIMARY CLINICAL RECORDS. [facility] [employer] [facility]. provides no warranty or guarantee of the accuracy or completeness of information in this document.
[2024-03-18 10:13] LABS: Thyroid Stimulating Hormone 2.225 uIU/mL (0.358-3.740)
[2024-03-18 10:33] LABS: Free T4 0.97 ng/dL (0.76-1.46)
== END 2024-03-18 09:15 | disposition home or self-care (01) ==
PROVIDERS: PCP Family Medicine; Visit Provider Family Medicine
DX: R53.83 Other fatigue (principal)
CPT/HCPCS: 36415; 84439; 84443

== ENCOUNTER 2025-01-05 09:07 | Outpatient (OUT) | payer BC, SELFPAY ==
--- OUTSIDE RECORDS SUMMARY | 2025-01-05 09:27 | XMS_ITS | CCD ---
Author Organization [facility] Care Team Providers Care [employer] Supervisor Name Role Phone Unavailable Unavailable Rocío Maza [...] Unavailable HOY ., DR ALFORD Admitting Unavailable DR ROCÍO SIFUENTES Consulting Unavailable SHAUNNA Mcdaniel, DR ALFORD Admitting Unavailable SHAUNNA Mcdaniel, DR ALFORD Attending Unavailable SHAUNNA Mcdaniel, DR ALFORD Primary Care Unavailable Rocío Maza MD Primary Care Provider [phone]( [phone] Medications Current Medications Medication Drug Class(es) Dates Sig (Normalized) Sig (Original) aspirin 81 mg delayed release oral tablet (20 sources) Platelet Aggregation Inhibitor, Nonsteroidal Anti-inflammatory Drug Start: 01-25-2024 End: 01-24-2025 take 1 tablet by mouth once daily aspirin 81 mg EC tablet Indications: History of SC (myocardial infarction) , History of PTCA Take 1 tablet (81 mg) by mouth once daily. 90 tablet 3 01/25/2024 01/24/2025 Active Start: 09-03-2021 take 1 tablet by too th once daily Aspirin Low Dose 81 MG Oral Tablet Delayed Release Take 1 tablet daily Quantity: 90 Refills: 3 Ordered: 28-Jan-2023 Tiffany Shelby MD Start : 07-Nov-2021 Active 12 hr buPROPion hydrochloride 150 mg extended release oral tablet (1 source) Aminoketone Start: 01-04-2025 End: 01-04-2026 take 1 tablet by mouth twice daily buPROPion SR (Wellbutrin SR) 150 mg 12 hr tablet Indications: Current smoker Take 1 tablet (150 mg) by mouth 2 times a day. 60 tablet 3 01/04/2025 01/04/2026 Active diclofenac sodium 50 mg delayed release oral tablet (1 source) Nonsteroidal Anti-inflammatory Drug Start: 12-19-2024 take 1 tablet by mouth every twelve hours diclofenac (Voltaren) 50 mg EC tablet Take 1 tablet (50 mg) by mouth every 12 hours. 12/19/2024 Active lisinopril 40 mg oral tablet (13 sources) Angiotensin Converting Enzyme Inhibitor Start: 12-27-2024 End: 12-27-2025 take 1 tablet by mouth once daily lisinopril 40 mg tablet Indications: Primary hypertension Take 1 tablet (40 mg) by mouth once daily. 90 tablet 3 12/27/2024 12/27/2025 Active Start: 09-03-2021 take 1 tablet by too th once daily Lisinopril 40 MG Oral Tablet take 1 tablet by mouth once daily Quantity: 90 Refills: 3 Ordered: 30-Dec-2022 Sukh Anderson DO Start : 03-Sep-2021 Active nitroglycerin 0.4 mg sublingual tablet (1 source) Nitrate Vasodilator Start: 01-04-2025 End: 01-04-2026 nitroglycerin (Nitrostat) 0.4 mg SL tablet Indications: Coronary artery disease involving [place] coronary artery of [place] heart without angina pectoris Place 1 tablet (0.4 mg) under the tongue every 5 minutes if needed for chest pain. May repeat dose every 5 minutes for up to 3 doses total. 25 tablet 01/04/2025 01/04/2026 Active Potassium (1 source) take 1 tablet by mouth twice daily potassium (POTASSIMIN ORAL) Take 1 tablet by mouth 2 times a day. Active varenicline 0.5 mg oral tablet (7 sources) Partial Cholinergic Nicotinic Agonist End: 01-04-2025 take 1 tablet by mouth once daily varenicline (Chantix) 0.5 mg tablet Take 1 tablet (0.5 mg) by mouth once daily. Take with full glass of water. 01/04/2025 Discontinued (Therapy completed) Completed/Discontinued Medications Medication Drug Class(es) Dates Sig (Normalized) Sig (Original) atorvastatin 80 mg oral tablet (7 sources) HMG-CoA Reductase Inhibitor Start: 1 take 1 tablet by mouth once daily Atorvastatin Calcium 80 MG Oral Tablet TAKE 1 TABLET BY MOUTH EVERY NIGHT Quantity: 30 Refills: 0 Ordered: 30-Jan-2022 DO Start : 04-Sep-2021 Active citalopram 20 mg oral tablet (7 sources) Serotonin Reuptake Inhibitor Start: 2 take [...] 03-Sep-2021 Active hydroCHLOROthiazide 25 mg oral tablet (7 sources) Thiazide Diuretic Start: 2 End: 5 take 1 tablet by mouth once daily hydroCHLOROthiazide 25 MG Oral Tablet TAKE 1 TABLET DAILY. Quantity: 90 Refills: 3 Ordered: 01-Apr-2022 DO Start : 01-Apr-2022 Active pantoprazole 40 mg delayed release oral tablet (7 sources) Proton Pump Inhibitor Start: 2 End: 5 take 1 tablet by mouth once daily Pantoprazole Sodium 40 MG Oral Tablet Delayed Release TAKE 1 TABLET DAILY. Quantity: 90 Refills: 3 Ordered: 01-Apr-2022 DO Start : 01-Apr-2022 Active Problems Active Problems Problem Classification Problem Date Documented Date Episodic/Chronic Allergic reactions (13 sources) H/O: Disorder; Translations: [Personal history of allergy to other specified medicinal agents] Episodic Anxiety disorders (14 sources) Anxiety; Translations: [Anxiety state, unspecified] Onset: 4 11-13-2023 Chronic Coronary atherosclerosis and other heart disease (20 sources) Coronary arteriosclerosis; Translations: [Coronary atherosclerosis of unspecified type of vessel, [place] or graft] Onset: 4 01-04-2025 Chronic Deficiency and other anemia (1 source) Anemia, unspecified; Translations: [ANEMIA UNSPECIFIED] Onset: 3 Episodic Diabetes mellitus without complication (1 source) Type 2 diabetes mellitus without complications; Translations: [TYPE 2 DM WITHOUT COMPLICATIONS] Onset: 3 Chronic Disorders of lipid metabolism (16 sources) Hyperlipidemia; Translations: [Other and unspecified hyperlipidemia] Onset: 2 01-04-2025 Chronic E Codes: Adverse effects of medical drugs (2 sources) Adverse effect of carbonic-anhydrase inhibitors, benzothiadiazides and other diuretics, initial encounter; Translations: [Adverse effect of other drugs, medicaments and biological substances, initial encounter] Onset: 3 Episodic Essential hypertension (16 sources) Hypertensive disorder; Translations: [Unspecified essential hypertension] Onset: 3 01-04-2025 Chronic Fluid and electrolyte disorders (4 sources) Hypokalemia; Translations: [HYPOKALEMIA] Onset: 3 Episodic Malaise and fatigue (1 source) Other fatigue; Translations: [OTHER FATIGUE] Onset: 3 Episodic Nutritional deficiencies (1 source) Vitamin D deficiency, unspecified; Translations: [VITAMIN D DEFICIENCY UNSPECIFIED] Onset: 2 Chronic Other aftercare (1 source) [employer] (current) use of aspirin; Translations: [FDC CURRENT USE OF ASPIRIN] Onset: 3 Episodic Other aftercare (1 source) Other alf (current) drug therapy; Translations: [OTH FDC CURRENT DRUG THERAPY] Onset: 3 Episodic Other aftercare (1 source) [employer] customer [employer] (current) use of oral hypoglycemic drugs; Translations: [FDC USE ORAL HYPOGLYCEMIC DX] Onset: 3 Episodic [...] INDEX BMI 33.0-33.9 ADULT] Onset: 3 Chronic Other nutritional; endocrine; and metabolic disorders (2 sources) Body mass index 30+ - obesity; Translations: [Body mass index (BMI) 38.0-38.9, adult] Onset: 5 01-04-2025 Chronic Residual codes; unclassified (4 sources) Pain, unspecified; Translations: [PAIN UNSPECIFIED] Onset: 3 Episodic Substance-related disorders (9 sources) Smokes tobacco daily; Translations: [Tobacco use disorder] Onset: 3 01-04-2025 Chronic Comment on above: 1/2 PPD; Unclassified (4 sources) CONTACT W/AND (SUSP) [...] SCREEN MALIG NEOPLASM RECTUM] Onset: 09-20-2022 Episodic Residual codes; unclassified (1 source) Intolerance to drug; Translations: [Other specified health status] Onset: 11-13-2023 11-13-2023 Episodic Unclassified (1 source) CONTACT W/AND (SUSP) EXPOS COVID-19; Translations: [CONTACT W/AND (SUSP) EXPOS COVID-19] Onset: 06-16-2022 Unclassified (1 source) COUGH, UNSPECIFIED; Translations: [COUGH, UNSPECIFIED] Onset: 05-05-2022 Results Test Name Value Interpretation Reference Range Facility MAGNESIUMon 02-23-2023 Magnesium [Mass/Vol] 2.2 mg/dL Normal 1.8-2.4 [facility] Comment on above: Performed By: #### M Alvin, CMP #### [facility] [address] [address] [address] Alysa Martinez PROF 14(COMP METB)on 023 Albumin [Mass/Vol] 3.2 g/dL Critically low 3.4-5.0 [facility] Comment on above: Performed By: #### M Alvin, CMP #### [facility] [address] [address] [address] Alysa Martinez Albumin/Globulin [Mass ratio] 0.8 {ratio} Normal [facility] Comment on above: Performed By: #### M Alvin, CMP #### [facility] [address] [address] [address] Alysa Martinez ALP [Catalytic activity/Vol] 74 U/L Normal 46-116 [facility] Comment on above: Performed By: #### M G, CMP #### [facility] [address] [address] [address] Alysa Martinez ALT [Catalytic activity/Vol] 43 U/L Normal 14-59 [facility] Comment on above: Performed By: #### M G, CMP #### [facility] [address] [address] [address] Alysa Martinez Anion gap [Moles/Vol] 10.9 mmol/L Normal [facility] Comment on above: Performed By: #### M G, CMP #### [facility] [address] [address] [address] Alysa Martinez AST [Catalytic activity/Vol] 22 U/L Normal 15-37 [facility] Comment on above: Performed By: #### M G, CMP #### [facility] [address] [address] [address] Alysa Martinez Bilirubin [Mass/Vol] 0.3 mg/dL Normal 0.2-1.0 [facility] Comment on above: Performed By: #### M G, CMP #### [facility] [address] [address] [address] Alysa Martinez Calcium [Mass/Vol] 8.6 mg/dL Normal 8.5-10.1 [facility] Comment on above: Performed By: #### M G, CMP #### [facility] [address] [address] [address] Alysa Martinez Chloride [Moles/Vol] 102 mmol/L Normal 98-107 [facility] Comment on above: Performed By: #### M G, CMP #### [facility] [address] [address] [address] Alysa Martinez CO2 [Moles/Vol] 30.0 mmol/L Normal 21.0-32.0 [facility] Comment on above: Performed By: #### M G, CMP #### [facility] [address] [address] [address] Alysa Martinez Creatinine [Mass/Vol] 0.89 mg/dL Normal 0.55-1.02 [facility] Comment on above: Performed By: #### M G, CMP #### [facility] [address] [address] [address] Alysa Martinez EGFR-AF CITIZEN [place] >60 Normal >=60 [facility] Comment on above: Performed By: #### M G, CMP #### [facility] [address] [address] [address] Alysa Martinez EGFR-NON AF CITIZEN [place] >60 Normal >=60 [facility] Comment on above: Performed By: #### M G, CMP #### [facility] [address] [place] [address] Dr. Alysa Martinez Globulin (S) [Mass/Vol] 4.0 g/dL Normal [facility] Comment on above: Performed By: #### M G, CMP #### [facility] [address] [place] [address] Dr. Alysa Martinez Glucose [Mass/Vol] 144 mg/dL Critically high 74-106 [facility] Comment on above: Performed By: #### M G, CMP #### [facility] [address] [place] [address] Dr. Alysa Martinez Potassium [Moles/Vol] 3.9 mmol/L Normal 3.5-5.1 [facility] Comment on above: Performed By: #### M G, CMP #### [facility] [address] [place] [address] Dr. Alysa Martinez Protein [Mass/Vol] 7.2 g/dL Normal 6.4-8.[address] [facility] Comment on above: Performed By: #### M G, CMP #### [facility] [address] [place] [address] Dr. Alysa Martinez Sodium [Moles/Vol] 139 mmol/L Normal 136-[address] [facility] Comment on above: Performed By: #### M G, CMP #### [facility] [address] [place] [address] Dr. Alysa Martinez Urea nitrogen [Mass/Vol] 14.0 mg/dL Normal 7.0-18.0 [facility] Comment on above: Performed By: #### M G, CMP #### [facility] [address] [place] [address] Dr. Alysa Martinez Urea nitrogen/Creatinine [Mass ratio] 15.7 mg/mg Normal [facility] Comment on above: Performed By: #### M G, CMP #### [facility] [address] [place] [address] Dr. Alysa Martinez MAGNESIUMon 02-16-2023 Magnesium [Mass/Vol] 2.1 mg/dL Normal 1.8-2.4 [facility] Comment on above: Performed By: #### M Alvin, CMP #### [facility] [address] [place] [address] Dr. Alysa Martinez PROF 14(COMP METB)on 023 Albumin [Mass/Vol] 3.3 g/dL Critically low 3.4-5.[address] [facility] Comment on above: Performed By: #### P HOS, BMP, MG #### [facility] [address] [place] [address] Dr. Alysa Martinez Albumin/Globulin [Mass ratio] 0.8 {ratio} Normal [facility] Comment on above: Performed By: #### P HOS, BMP, MG #### [facility] [address] [place] [address] Dr. Alysa Martinez ALP [Catalytic activity/Vol] 74 U/L Normal 46-116 [facility] Comment on above: Performed By: #### P HOS, BMP, MG #### [facility] [address] [place] [address] Dr. Alysa Martinez ALT [Catalytic activity/Vol] 46 U/L Normal 14-59 [facility] Comment on above: Performed By: #### P HOS, BMP, MG #### [facility] [address] [place] [address] Dr. Alysa Martinez Anion gap [Moles/Vol] 12.4 mmol/L Normal [facility] Comment on above: Performed By: #### P HOS, BMP, MG #### [facility] [address] [place] [address] Dr. Alysa Martinez AST [Catalytic activity/Vol] 21 U/L Normal 15-37 [facility] Comment on above: Performed By: #### P HOS, BMP, MG #### [facility] [address] [place] [address] Dr. Alysa Martinez Bilirubin [Mass/Vol] 0.3 mg/dL Normal 0.2-1.0 [facility] Comment on above: Performed By: #### P HOS, BMP, MG #### [facility] [address] [place] [address] Dr. Alysa Martinez Calcium [Mass/Vol] 9.2 mg/dL Normal 8.5-10.1 [facility] Comment on above: Performed By: #### P HOS, BMP, MG #### [facility] [address] [place] [address] Dr. Alysa Martinez Chloride [Moles/Vol] 100 mmol/L Normal 98-107 [facility] Comment on above: Performed By: #### P HOS, BMP, MG #### [facility] [address] [place] [address] Dr. Alysa Martinez CO2 [Moles/Vol] 30.9 mmol/L Normal 21.0-32.0 [facility] Comment on above: Performed By: #### P HOS, BMP, MG #### [facility] [address] [place] [address] Dr. Alysa Martinez Creatinine [Mass/Vol] 0.98 mg/dL Normal 0.55-1.02 [facility] Comment on above: Performed By: #### P HOS, BMP, MG #### [facility] [address] [place] [address] Dr. lAysa Martinez EGFR-AF CITIZ[place] >60 Normal >=60 [facility] Comment on above: Performed By: #### P HOS, BMP, MG #### [facility] [address] [place] [address] Dr. Alysa Martinez EGFR-NON AF CITIZ[place] 60 mL/min/1.73m2 Normal >=60 [facility] Comment on above: Performed By: #### P HOS, BMP, MG #### [facility] [address] [place] [address] Dr. Alysa Martinez Globulin (S) [Mass/Vol] 3.9 g/dL Normal [facility] Comment on above: Performed By: #### P HOS, BMP, MG #### [facility] [address] [place] [address] Dr. Alysa Martinez Glucose [Mass/Vol] 106 mg/dL Normal 74-106 [facility] Comment on above: Performed By: #### P HOS, BMP, MG #### [facility] [address] [place] [address] Dr. Alysa Martinez Potassium [Moles/Vol] 4.3 mmol/L Normal 3.5-5.1 [facility] Comment on above: Performed By: #### P HOS, BMP, MG #### [facility] [address] [place] [address] Dr. Alysa Martinez Protein [Mass/Vol] 7.2 g/dL Normal 6.4-8.[address] [facility] Comment on above: Performed By: #### P HOS, BMP, MG #### [facility] [address] [place] [address] Dr. Alysa Martinez Sodium [Moles/Vol] 139 mmol/L Normal 136-145 [facility] Comment on above: Performed By: #### P HOS, BMP, MG #### [facility] [address] [place] [address] Dr. Alysa Martinez Urea nitrogen [Mass/Vol] 15.0 mg/dL Normal 7.0-18.0 [facility] Comment on above: Performed By: #### P HOS, BMP, MG #### [facility] [address] [place] [address] Dr. Alysa Martinez Urea nitrogen/Creatinine [Mass ratio] 15.3 mg/mg Normal [facility] Comment on above: Performed By: #### P HOS, BMP, MG #### [facility] [address] [place] [address] Dr. Alysa Martinez MAGNESIUMon 02-02-2023 Magnesium [Mass/Vol] 1.5 mg/dL Critically low 1.8-2.4 [facility] Comment on above: Performed By: #### R F #### [facility] [address] [address] [address] Alysa Martinez PROF 14(COMP METB)on 023 Albumin [Mass/Vol] 3.4 g/dL Normal 3.4-5.0 [facility] Comment on above: Performed By: #### R F #### [facility] [address] [address] [address] Alysa Martinez Albumin/Globulin [Mass ratio] 0.8 {ratio} Normal [facility] Comment on above: Performed By: #### R F #### [facility] [address] [place] [address] Dr. Alysa Martinez ALP [Catalytic activity/Vol] 77 U/L Normal 46-116 [facility] Comment on above: Performed By: #### R F #### [facility] [address] [address] [address] Alysa Martinez ALT [Catalytic activity/Vol] 37 U/L Normal 14-59 [facility] Comment on above: Performed By: #### R F #### [facility] [address] [address] [address] Alysa Martinez Anion gap [Moles/Vol] 12.5 mmol/L Normal [facility] Comment on above: Performed By: #### R F #### [facility] [address] [place] [address] Dr. Alysa Martinez AST [Catalytic activity/Vol] 19 U/L Normal 15-37 [facility] Comment on above: Performed By: #### R F #### [facility] [address] [place] [address] Dr. Alysa Martinez Bilirubin [Mass/Vol] 0.3 mg/dL Normal 0.2-1.0 [facility] Comment on above: Performed By: #### R F #### [facility] [address] [place] [address] Dr. Alysa Martinez Calcium [Mass/Vol] 9.5 mg/dL Normal 8.5-10.1 [facility] Comment on above: Performed By: #### R F #### [facility] [address] [place] [address] Dr. Alysa Martinez Chloride [Moles/Vol] 100 mmol/L Normal 98-107 [facility] Comment on above: Performed By: #### R F #### [facility] [address] [place] [address] Dr. Alysa Martinez CO2 [Moles/Vol] 26.8 mmol/L Normal 21.0-32.0 [facility] Comment on above: Performed By: #### R F #### [facility] [address] [place] [address] Dr. Alysa Martinez Creatinine [Mass/Vol] 1.15 mg/dL Critically high 0.55-1.02 [facility] Comment on above: Performed By: #### R F #### [facility] [address] [place] [address] Dr. Alyas Martinez EGFR-AF CITIZ[place] >60 Normal >=60 [facility] Comment on above: Performed By: #### R F #### [facility] [address] [place] [address] Dr. Alysa Martinez EGFR-NON AF [place]IZ[place] 50 mL/min/1.73m2 Critically low >=60 [facility] Comment on above: Performed By: #### R F #### [facility] [address] [place] [address] Dr. Alysa Martinez Globulin (S) [Mass/Vol] 4.1 g/dL Normal [facility] Comment on above: Performed By: #### R F #### [facility] [address] [place] [address] Dr. Alysa Martinez Glucose [Mass/Vol] 128 mg/dL Critically high 74-106 [facility] Comment on above: Performed By: #### R F #### [facility] [address] [place] [address] Dr. Alysa Martinez Potassium [Moles/Vol] 4.3 mmol/L Normal 3.5-5.1 [facility] Comment on above: Performed By: #### R F #### [facility] [address] [place] [address] Dr. Alysa Martinez Protein [Mass/Vol] 7.5 g/dL Normal 6.4-8.[address] [facility] Comment on above: Performed By: #### R F #### [facility] [address] [place] [address] Dr. Alysa Martinez Sodium [Moles/Vol] 135 mmol/L Critically low 136-145 Th [facility] Comment on above: Performed By: #### R F #### [facility] [address] [place] [address] Dr. Alysa Martinez Urea nitrogen [Mass/Vol] 26.0 mg/dL Critically high 7.0-18.0 [facility] Comment on above: Performed By: #### R F #### [facility] [address] [place] [address] Dr. Alysa Martinez Urea nitrogen/Creatinine [Mass ratio] 22.6 mg/mg Normal [facility] Comment on above: Performed By: #### R F #### [facility] [address] [place] [address] Dr. Alysa Martinez MAGNESIUMon 01-23-2023 Magnesium [Mass/Vol] 2.6 mg/dL Critically high 1.8-2.4 [facility] Comment on above: Performed By: #### M G, CMP #### [facility] [address] [place] [address] Dr. Alysa Martinez PROF 14(COMP METB)on 023 Albumin [Mass/Vol] 3.6 g/dL Normal 3.4-5.[address] [facility] Comment on above: Performed By: #### M G, CMP #### [facility] [address] [place] [address] Dr. Alysa Martinez Albumin/Globulin [Mass ratio] 0.9 {ratio} Normal [facility] Comment on above: Performed By: #### M G, CMP #### [facility] [address] [address] [address] Alysa Martinez ALP [Catalytic activity/Vol] 79 U/L Normal 46-116 [facility] Comment on above: Performed By: #### M G, CMP #### [facility] [address] [address] [address] Alysa Mratinez ALT [Catalytic activity/Vol] 35 U/L Normal 14-59 [facility] Comment on above: Performed By: #### M G, CMP #### [facility] [address] [address] [address] Alysa Martinez Anion gap [Moles/Vol] 13.4 mmol/L Normal Th [facility] Comment on above: Performed By: #### M G, CMP #### [facility] [address] [address] [address] Alysa Martinez AST [Catalytic activity/Vol] 18 U/L Normal 15-37 [facility] Comment on above: Performed By: #### M G, CMP #### [facility] [address] [address] [address] Alysa Martinez Bilirubin [Mass/Vol] 0.2 mg/dL Normal 0.2-1.0 [facility] Comment on above: Performed By: #### M G, CMP #### [facility] [address] [address] [address] Alysa Martinez Calcium [Mass/Vol] 8.9 mg/dL Normal 8.5-10.1 [facility] Comment on above: Performed By: #### M G, CMP #### [facility] [address] [address] [address] Alysa Martinez Chloride [Moles/Vol] 98 mmol/L Normal 98-107 [facility] Comment on above: Performed By: #### M G, CMP #### [facility] [address] [address] [address] Alysa Martinez CO2 [Moles/Vol] 27.6 mmol/L Normal 21.0-32.0 [facility] Comment on above: Performed By: #### M G, CMP #### [facility] [address] [address] [address] Alysa Martinez Creatinine [Mass/Vol] 0.86 mg/dL Normal 0.55-1.02 [facility] Comment on above: Performed By: #### M G, CMP #### [facility] [address] [address] [address] Alysa Martinez EGFR-AF [place]IZ[place] >60 Normal >=60 [facility] Comment on above: Performed By: #### M G, CMP #### [facility] [address] [address] [address] Alysa Martinez EGFR-NON AF CITIZ[place] >60 Normal >=60 [facility] Comment on above: Performed By: #### M G, CMP #### [facility] [address] [place] [address] Dr. Alysa Martinez Globulin (S) [Mass/Vol] 4.0 g/dL Normal [facility] Comment on above: Performed By: #### M G, CMP #### [facility] [address] [place] [address] Dr. Alysa Martinez Glucose [Mass/Vol] 112 mg/dL Critically high 74-106 T [facility] Comment on above: Performed By: #### M G, CMP #### [facility] [address] [place] [address] Dr. Alysa Martinez Potassium [Moles/Vol] 5.0 mmol/L Normal 3.5-5.1 [facility] Comment on above: Performed By: #### M G, CMP #### [facility] [address] [place] [address] Dr. Alysa Martinez Protein [Mass/Vol] 7.6 g/dL Normal 6.4-8.2 [facility] Comment on above: Performed By: #### M G, CMP #### [facility] [address] [place] [address] Dr. Alysa Martinez Sodium [Moles/Vol] 134 mmol/L Critically low 136-[address] [facility] Comment on above: Performed By: #### M G, CMP #### [facility] [address] [place] [address] Dr. Alysa Martinez Urea nitrogen [Mass/Vol] 17.0 mg/dL Normal 7.0-18.0 [facility] Comment on above: Performed By: #### M G, CMP #### [facility] [address] [place] [address] Dr. Alysa Martinez Urea nitrogen/Creatinine [Mass ratio] 19.8 mg/mg Normal [facility] Comment on above: Performed By: #### M G, CMP #### [facility] [address] [place] [address] Dr. Alysa Martinez MAGNESIUMon 01-16-2023 Magnesium [Mass/Vol] 1.7 mg/dL Critically low 1.8-2.4 [facility] Comment on above: Performed By: #### R F #### [facility] [address] [place] [address] Dr. Alysa Martinez PROF 14(COMP METB)on 023 Albumin [Mass/Vol] 3.1 g/dL Critically low 3.4-5.[address] [facility] Comment on above: Performed By: #### R F #### [facility] [address] [place] [address] Dr. Alysa Martinez Albumin/Globulin [Mass ratio] 0.9 {ratio} Normal [facility] Comment on above: Performed By: #### R F #### [facility] [address] [place] [address] Dr. Alysa Martinez ALP [Catalytic activity/Vol] 69 U/L Normal 46-116 [facility] Comment on above: Performed By: #### R F #### [facility] [address] [place] [address] Dr. Alysa Martinez ALT [Catalytic activity/Vol] 46 U/L Normal 14-59 [facility] Comment on above: Performed By: #### R F #### [facility] [address] [place] [address] Dr. Alysa Martinez Anion gap [Moles/Vol] 10.0 mmol/L Normal [facility] Comment on above: Performed By: #### R F #### [facility] [address] [address] [address] Alysa Martinez AST [Catalytic activity/Vol] 29 U/L Normal 15-37 [facility] Comment on above: Performed By: #### R F #### [facility] [address] [place] [address] Dr. Alysa Martinez Bilirubin [Mass/Vol] 0.3 mg/dL Normal 0.2-1.0 [facility] Comment on above: Performed By: #### R F #### [facility] [address] [place] [address] Dr. Alysa Martinez Calcium [Mass/Vol] 8.9 mg/dL Normal 8.5-10.1 [facility] Comment on above: Performed By: #### R F #### [facility] [address] [place] [address] Dr. Alysa Martinez Chloride [Moles/Vol] 103 mmol/L Normal 98-107 [facility] Comment on above: Performed By: #### R F #### [facility] [address] [place] [address] Dr. Alysa Martinez CO2 [Moles/Vol] 32.5 mmol/L Critically high 21.0-32.0 [facility] Comment on above: Performed By: #### R F #### [facility] [address] [place] [address] Dr. Alysa Martinez Creatinine [Mass/Vol] 0.85 mg/dL Normal 0.55-1.02 [facility] Comment on above: Performed By: #### R F #### [facility] [address] [place] [address] Dr. Alysa Martinez EGFR-AF CITIZEN [place] >60 Normal >=60 The [facility] Comment on above: Performed By: #### R F #### [facility] [address] [place] [address] Dr. Alysa Martinez EGFR-NON AF CITIZEN OF [place] >60 Normal >=60 [facility] Comment on above: Performed By: #### R F #### [facility] [address] [place] [address] Dr. Alysa Martinez Globulin (S) [Mass/Vol] 3.5 g/dL Normal [facility] Comment on above: Performed By: #### R F #### [facility] [address] [address] [address] Alysa Martinez Glucose [Mass/Vol] 97 mg/dL Normal 74-106 [facility] Comment on above: Performed By: #### R F #### [facility] [address] [address] [address] Alysa Martinez Potassium [Moles/Vol] 3.5 mmol/L Normal 3.5-5.1 [facility] Comment on above: Performed By: #### R F #### [facility] [address] [place] [address] Dr. Alysa Martinez Protein [Mass/Vol] 6.6 g/dL Normal 6.4-8.2 [facility] Comment on above: Performed By: #### R F #### [facility] [address] [address] [address] Alysa Martinez Sodium [Moles/Vol] 142 mmol/L Normal 136-145 [facility] Comment on above: Performed By: #### R F #### [facility] [address] [address] [address] Alysa Martinez Urea nitrogen [Mass/Vol] 12.0 mg/dL Normal 7.0-18.0 [facility] Comment on above: Performed By: #### R F #### [facility] [address] [address] [address] Alysa Martinez Urea nitrogen/Creatinine [Mass ratio] 14.1 mg/mg Normal [facility] Comment on above: Performed By: #### R F #### [facility] [address] [address] [address] Alysa Martinez CHLORIDE URINE RANDOMon 12-18 Chloride, Urine <20 Normal Not Estab. [facility] Comment on above: Performed By: #### P HOS, BMP, MG #### [facility] [address] [address] [address] Alysa Martinez MAGNESIUMon 01-13-2023 Magnesium [Mass/Vol] 2.1 mg/dL Normal 1.8-2.4 [facility] Comment on above: Performed By: #### R F #### [facility] [address] [place] [address] Dr. Alysa Martinez PHOSPHORUSon 01-13-2023 Phosphate [Mass/Vol] 3.7 mg/dL Normal 2.6-4.7 [facility] Comment on above: Performed By: #### R F #### [facility] [address] [place] [address] Dr. Alysa Martinez PROF CHEM 8 (BAS METB)on Anion gap [Moles/Vol] 12.3 mmol/L Normal [facility] Comment on above: Performed By: #### R F #### [facility] [address] [place] [address] Dr. Alysa Martinez Calcium [Mass/Vol] 7.6 mg/dL Critically low 8.5-10.[address] [facility] Comment on above: Performed By: #### R F #### [facility] [address] [place] [address] Dr. Alysa Martinez Chloride [Moles/Vol] 106 mmol/L Normal 98-107 [facility] Comment on above: Performed By: #### R F #### [facility] [address] [place] [address] Dr. Alysa Martinez CO2 [Moles/Vol] 30.7 mmol/L Normal 21.0-32.0 [facility] Comment on above: Performed By: #### R F #### [facility] [address] [place] [address] Dr. Alysa Martinez Creatinine [Mass/Vol] 0.67 mg/dL Normal 0.55-1.02 [facility] Comment on above: Performed By: #### R F #### [facility] [address] [place] [address] Dr. Alysa Martinez EGFR-AF CITIZ[place] >60 Normal >=60 [facility] Comment on above: Performed By: #### R F #### [facility] [address] [place] [address] Dr. Alysa Martinez EGFR-NON AF CITIZ[place] >60 Normal >=60 [facility] Comment on above: Performed By: #### R F #### [facility] [address] [address] [address] Alysa Martinez Glucose [Mass/Vol] 125 mg/dL Critically high 74-106 [facility] Comment on above: Performed By: #### R F #### [facility] [address] [address] [address] Aylsa Martinez Potassium [Moles/Vol] 3.0 mmol/L Critically low 3.5-5.1 [facility] Comment on above: Performed By: #### R F #### [facility] [address] [address] [address] Alysa Martinez Sodium [Moles/Vol] 146 mmol/L Critically high 136-145 [facility] Comment on above: Performed By: #### R F #### [facility] [address] [address] [address] Alysa Martinez Urea nitrogen [Mass/Vol] 9.0 mg/dL Normal 7.0-18.0 [facility] Comment on above: Performed By: #### R F #### [facility] [address] [address] [address] Alysa Martinez Urea nitrogen/Creatinine [Mass ratio] 13.4 mg/mg Normal [facility] Comment on above: Performed By: #### R F #### [facility] [address] [address] [address] Alysa Martinez Anion gap [Moles/Vol] 9.9 mmol/L Normal [facility] Comment on above: Performed By: #### B MP #### [facility] [address] [address] [address] Alysa Martinez Calcium [Mass/Vol] 7.5 mg/dL Critically low 8.5-10.[address] [facility] Comment on above: Performed By: #### B MP #### [facility] [address] [address] [address] Alysa Martinez Chloride [Moles/Vol] 103 mmol/L Normal 98-107 [facility] Comment on above: Performed By: #### B MP #### [facility] [address] [address] [address] Alysa Martinez CO2 [Moles/Vol] 31.7 mmol/L Normal 21.0-32.0 [facility] Comment on above: Performed By: #### B MP #### [facility] [address] [address] [address] Alysa Martinez Creatinine [Mass/Vol] 0.75 mg/dL Normal 0.55-1.02 [facility] Comment on above: Performed By: #### B MP #### [facility] [address] [place] [address] Dr. Alysa Martinez EGFR-AF CITIZ[place] >60 Normal >=60 [facility] Comment on above: Performed By: #### B MP #### [facility] [address] [place] [address] Dr. Alysa Martinez EGFR-NON AF CITIZ[place] >60 Normal >=60 [facility] Comment on above: Performed By: #### B MP #### [facility] [address] [address] [address] Alysa Martinez Glucose [Mass/Vol] 189 mg/dL Critically high 74-106 [facility] Comment on above: Performed By: #### B MP #### [facility] [address] [place] [address] Dr. Alysa Martinez Potassium [Moles/Vol] 2.6 mmol/L Critically low 3.5-5.1 [facility] Comment on above: Performed By: #### B MP #### [facility] [address] [address] [address] Alysa Martinez Sodium [Moles/Vol] 143 mmol/L Normal 136-145 [facility] Comment on above: Performed By: #### B MP #### [facility] [address] [address] [address] Alysa Martinez Urea nitrogen [Mass/Vol] 8.0 mg/dL Normal 7.0-18.0 [facility] Comment on above: Performed By: #### B MP #### [facility] [address] [place] [address] Dr. Alysa Martinez Urea nitrogen/Creatinine [Mass ratio] 10.7 mg/mg Normal [facility] Comment on above: Performed By: #### B MP #### [facility] [address] [place] [address] Dr. Alysa Martinez CAROLINE by IFAon 01-12-2023 Antinuclear Antibodies, IFA Negative Normal [facility] Comment on above: Result Comment: Nega tive <1:80 Borderline 1:80 Positive >1:80 ICAP nomenclature: AC-0 For more information about Hep-2 cell patterns use ANApatterns.org, the official website for the International Consensus on Antinuclear Antibody (CAROLINE) Patterns (ICAP). Performed By: #### P HOS, BMP, MG #### [facility] [address] [place] [address] Dr. Alysa Martinez MAGNESIUMon 01-12-2023 Magnesium [Mass/Vol] 2.4 mg/dL Normal 1.8-2.4 [facility] Comment on above: Performed By: #### P HOS, BMP, MG #### [facility] [address] [place] [address] Dr. Alysa Martinez PHOSPHORUSon 01-12-2023 Phosphate [Mass/Vol] 3.2 mg/dL Normal 2.6-4.7 [facility] Comment on above: Performed By: #### P HOS, BMP, MG #### [facility] [address] [place] [address] Dr. Alysa Martinez PROF CHEM 8 (BAS METB)on Anion gap [Moles/Vol] 9.9 mmol/L Normal [facility] Comment on above: Performed By: #### P HOS, BMP, MG #### [facility] [address] [place] [address] Dr. Alysa Martinez Calcium [Mass/Vol] 7.7 mg/dL Critically low 8.5-10.1 [facility] Comment on above: Performed By: #### P HOS, BMP, MG #### [facility] [address] [address] [address] Alysa Martinez Chloride [Moles/Vol] 100 mmol/L Normal 98-107 [facility] Comment on above: Performed By: #### P HOS, BMP, MG #### [facility] [address] [address] [address] Alysa Martinez CO2 [Moles/Vol] 33.4 mmol/L Critically high 21.0-32.0 [facility] Comment on above: Performed By: #### P HOS, BMP, MG #### [facility] [address] [address] [address] Alysa Martinez Creatinine [Mass/Vol] 0.69 mg/dL Normal 0.55-1.02 [facility] Comment on above: Performed By: #### P HOS, BMP, MG #### [facility] [address] [place] [address] Dr. Alysa Martinez EGFR-AF CITIZ[place] >60 Normal >=60 [facility] Comment on above: Performed By: #### P HOS, BMP, MG #### [facility] [address] [place] [address] Dr. Alysa Martinez EGFR-NON AF [place]IZ[place] >60 Normal >=60 [facility] Comment on above: Performed By: #### P HOS, BMP, MG #### [facility] [address] [address] [address] Alysa Martinez Glucose [Mass/Vol] 140 mg/dL Critically high 74-106 [facility] Comment on above: Performed By: #### P HOS, BMP, MG #### [facility] [address] [place] [address] Dr. Alysa Martinez Potassium [Moles/Vol] 2.3 mmol/L Critically low 3.5-5.1 [facility] Comment on above: Performed By: #### P HOS, BMP, MG #### [facility] [address] [address] [address] Alysa Martinez Sodium [Moles/Vol] 142 mmol/L Normal 136-145 [facility] Comment on above: Performed By: #### P HOS, BMP, MG #### [facility] [address] [address] [address] Alysa Martinez Urea nitrogen [Mass/Vol] 8.0 mg/dL Normal 7.0-18.0 [facility] Comment on above: Performed By: #### P HOS, BMP, MG #### [facility] [address] [address] [address] Alysa Martinez Urea nitrogen/Creatinine [Mass ratio] 11.6 mg/mg Normal [facility] Comment on above: Performed By: #### P HOS, BMP, MG #### [facility] [address] [address] [address] Alysa Martinez Anion gap [Moles/Vol] 8.0 mmol/L Normal [facility] Comment on above: Performed By: #### P HOS, BMP, MG #### [facility] [address] [address] [address] Alysa Martinez Calcium [Mass/Vol] 7.8 mg/dL Critically low 8.5-10.1 [facility] Comment on above: Performed By: #### P HOS, BMP, MG #### [facility] [address] [address] [address] Alysa Martinez Chloride [Moles/Vol] 100 mmol/L Normal 98-107 [facility] Comment on above: Performed By: #### P HOS, BMP, MG #### [facility] [address] [address] [address] Alysa Martinez CO2 [Moles/Vol] 37.5 mmol/L Critically high 21.0-32.0 [facility] Comment on above: Performed By: #### P HOS, BMP, MG #### [facility] [address] [address] [address] Alysa Martinez Creatinine [Mass/Vol] 0.67 mg/dL Normal 0.55-1.02 [facility] Comment on above: Performed By: #### P HOS, BMP, MG #### [facility] [address] [address] [address] Alysa Martinez EGFR-AF [place]IZ[place] >60 Normal >=60 [facility] Comment on above: Performed By: #### P HOS, BMP, MG #### [facility] [address] [address] [address] Alysa Martinez EGFR-NON AF [place]IZ[place] >60 Normal >=60 [facility] Comment on above: Performed By: #### P HOS, BMP, MG #### [facility] [address] [address] [address] Alysa Martinez Glucose [Mass/Vol] 130 mg/dL Critically high 74-106 [facility] Comment on above: Performed By: #### P HOS, BMP, MG #### [facility] [address] [address] [address] Alysa Martinez Potassium [Moles/Vol] 1.5 mmol/L Critically low 3.5-5.1 [facility] Comment on above: Performed By: #### P HOS, BMP, MG #### [facility] [address] [address] [address] Alysa Martinez Sodium [Moles/Vol] 144 mmol/L Normal 136-145 [facility] Comment on above: Performed By: #### P HOS, BMP, MG #### [facility] [address] [address] [address] Alysa Martinez Urea nitrogen [Mass/Vol] 9.0 mg/dL Normal 7.0-18.0 [facility] Comment on above: Performed By: #### P HOS, BMP, MG #### [facility] [address] [address] [address] Alysa Martinez Urea nitrogen/Creatinine [Mass ratio] 13.4 mg/mg Normal [facility] Comment on above: Performed By: #### P HOS, BMP, MG #### [facility] [address] [address] [address] Alysa Martinez US KIDNEYS BLADDERon 023 [...] KATE ALVARENGA Date: 2023-01-12 10:59 Normal [facility] ANTISTREPTOLYSIN O AB (ASO)o n 01-11-2023 Antistreptolysin O Ab 81.7 IU/mL Normal 0.0-200.0 [facility] Comment on above: Performed By: #### P HOS, BMP, MG #### [facility] [address] [place] [address] Dr. Alysa Martinez CREATININE URINEon 3 URINE CREAT 27.01 mg/dL Normal 20.00-300.00 [facility] Comment on above: Performed By: #### B MP #### [facility] [address] [place] [address] Dr. Alysa Martinez MAGNESIUMon 01-11-2023 Magnesium [Mass/Vol] 1.7 mg/dL Critically low 1.8-2.4 [facility] Comment on above: Performed By: #### P HOS, BMP, MG #### [facility] [address] [place] [address] Dr. Alysa Martinez Magnesium [Mass/Vol] 2.0 mg/dL Normal 1.8-2.4 [facility] Comment on above: Performed By: #### M G, CMP #### [facility] [address] [place] [address] Dr. Alysa Martinez Magnesium [Mass/Vol] 1.6 mg/dL Critically low 1.8-2.4 [facility] Comment on above: Performed By: #### P HOS, BMP, MG #### [facility] [address] [address] [address] Alysa Martinez PH URINEon 01-11-2023 pH (U) 6.0 [pH] Normal 5-9 [facility] Comment on above: Performed By: #### R F #### [facility] [address] [address] [address] Alysa Martinez PHOSPHORUSon 01-11-2023 Phosphate [Mass/Vol] 2.4 mg/dL Critically low 2.6-4.7 [facility] Comment on above: Performed By: #### P HOS, BMP, MG #### [facility] [address] [place] [address] Dr. Alysa Martinez POTASSIUMon 01-11-2023 Potassium [Moles/Vol] 1.6 mmol/L Critically low 3.5-5.1 [facility] Comment on above: Performed By: #### M G, CMP #### [facility] [address] [place] [address] Dr. Alysa Martinez POTASSIUM URINEon 01-11-2023 UR POTASSIUM 11.2 mmol/L Normal [facility] Comment on above: Performed By: #### P HOS, BMP, MG #### [facility] [address] [place] [address] Dr. Alysa Martinez PROF CHEM 8 (BAS METB)on Anion gap [Moles/Vol] 8.9 mmol/L Normal [facility] Comment on above: Performed By: #### P HOS, BMP, MG #### [facility] [address] [place] [address] Dr. Alysa Martinez Calcium [Mass/Vol] 7.4 mg/dL Critically low 8.5-10.[address] [facility] Comment on above: Performed By: #### P HOS, BMP, MG #### [facility] [address] [place] [address] Dr. Alysa Martinez Chloride [Moles/Vol] 95 mmol/L Critically low 98-107 [facility] Comment on above: Performed By: #### P HOS, BMP, MG #### [facility] [address] [address] [address] Alysa Martinez CO2 [Moles/Vol] 36.6 mmol/L Critically high 21.0-32.0 [facility] Comment on above: Performed By: #### P HOS, BMP, MG #### [facility] [address] [address] [address] Alysa Martinez Creatinine [Mass/Vol] 0.96 mg/dL Normal 0.55-1.02 [facility] Comment on above: Performed By: #### P HOS, BMP, MG #### [facility] [address] [address] [address] Alysa Martinez EGFR-AF [place]IZ[place] >60 Normal >=60 [facility] Comment on above: Performed By: #### P HOS, BMP, MG #### [facility] [address] [address] [address] Alysa Martinez EGFR-NON AF CITIZ[place] >60 Normal >=60 [facility] Comment on above: Performed By: #### P HOS, BMP, MG #### [facility] [address] [address] [address] Alysa Martinez Glucose [Mass/Vol] 215 mg/dL Critically high 74-106 [facility] Comment on above: Performed By: #### P HOS, BMP, MG #### [facility] [address] [address] [address] Alysa Martinez Potassium [Moles/Vol] 1.5 mmol/L Critically low 3.5-5.1 [facility] Comment on above: Performed By: #### P HOS, BMP, MG #### [facility] [address] [address] [address] Alysa Martinez Sodium [Moles/Vol] 138 mmol/L Normal 136-145 [facility] Comment on above: Performed By: #### P HOS, BMP, MG #### [facility] [address] [address] [address] Alysa Martinez Urea nitrogen [Mass/Vol] 12.0 mg/dL Normal 7.0-18.0 [facility] Comment on above: Performed By: #### P HOS, BMP, MG #### [facility] [address] [address] [address] Alysa Martinez Urea nitrogen/Creatinine [Mass ratio] 12.5 mg/mg Normal [facility] Comment on above: Performed By: #### P HOS, BMP, MG #### [facility] [address] [address] [address] Alysa Martinez RHEUMATOID FACTORon 01-12-20 RA Latex Turbid. 10.7 IU/mL Normal <14.0 [facility] Comment on above: Performed By: #### R F #### [facility] [address] [place] [address] Dr. Alysa Martinez SODIUM RANDOM URINEon 2022 Sodium (U) [Moles/Vol] 16 mmol/L Critically low 30-90 [facility] Comment on above: Performed By: #### P HOS, BMP, MG #### [facility] [address] [address] [address] Alysa Martinez UA RANDOMon 01-11-2023 Bilirubin Ql (U) Negative Normal NEGATIVE [facility] Comment on above: Performed By: #### P HOS, BMP, MG #### [facility] [address] [place] [address] Dr. Alysa Martinez Clarity (U) CLEAR Normal CLEAR [facility] Comment on above: Performed By: #### P HOS, BMP, MG #### [facility] [address] [address] [address] Alysa Martinez Color (U) LT. YELLOW Normal YELLOW [facility] Comment on above: Performed By: #### P HOS, BMP, MG #### [facility] [address] [address] [address] Alysa Martinez Glucose Ql (U) Negative Normal NEGATIVE [facility] Comment on above: Performed By: #### P HOS, BMP, MG #### [facility] [address] [address] [address] Alysa Martinez Hemoglobin Ql (U) TRACE-INTACT Abnormal NEGATIVE [facility] Comment on above: Performed By: #### P HOS, BMP, MG #### [facility] [address] [address] [address] Alysa Martinez Ketones Ql (U) Negative Normal NEGATIVE [facility] Comment on above: Performed By: #### P HOS, BMP, MG #### [facility] [address] [place] [address] Dr. Alysa Martinez LEUKOCYTES Negative Normal NEGATIVE [facility] Comment on above: Performed By: #### P HOS, BMP, MG #### [facility] [address] [address] [address] Alysa Martinez Nitrite Ql (U) Negative Normal NEGATIVE [facility] Comment on above: Performed By: #### P HOS, BMP, MG #### [facility] [address] [place] [address] Dr. Alysa Martinez pH (U) 7.5 [pH] Normal 5-9 [facility] Comment on above: Performed By: #### P HOS, BMP, MG #### [facility] [address] [place] [address] Dr. Alysa Martinez SPEC GRAVITY <=1.005 Abnormal 1.005-<=1.025 [facility] Comment on above: Performed By: #### P HOS, BMP, MG #### [facility] [address] [place] [address] Dr. Alysa Martinez UA PROTEIN Negative Normal NEGATIVE/ TRACE [facility] Comment on above: Performed By: #### P HOS, BMP, MG #### [facility] [address] [place] [address] Dr. Alysa Martinez Urobilinogen Qn (U) 0.2 {Bridget'U}/dL Normal 0.2 - 1. 0 [facility] Comment on above: Performed By: #### P HOS, BMP, MG #### [facility] [address] [place] [address] Dr. Alysa Martinez CALCIUM URINEon 01-10-2023 UR CALCIUM 1.1 mg/dL Critically low 5.1-21.0 [facility] Comment on above: Performed By: #### B MP #### [facility] [address] [place] [address] Dr. Alysa Martinez CBC AUTO DIFFon 01-10-2023 BASO # 0.0 103/ul Normal 0.0-0.1 [facility] Comment on above: Performed By: #### P HOS, BMP, MG #### [facility] [address] [place] [address] Dr. Alysa Martinez Basophils/100 WBC (Bld) 0.3 % Normal 0.2-2.0 [facility] Comment on above: Performed By: #### P HOS, BMP, MG #### [facility] [address] [place] [address] Dr. Alysa Martinez EO # 0.3 103/ul Normal 0.0-0.7 [facility] Comment on above: Performed By: #### P HOS, BMP, MG #### [facility] [address] [place] [address] Dr. Alysa Martinez Eosinophils/100 WBC (Bld) 3.6 % Normal 0.9-7.0 [facility] Comment on above: Performed By: #### P HOS, BMP, MG #### [facility] [address] [place] [address] Dr. Alysa Martinez Erythrocyte distribution width (RBC) [Ratio] 18.1 % Critically high 11.0-15.0 [facility] Comment on above: Performed By: #### P HOS, BMP, MG #### [facility] [address] [place] [address] Dr. Alysa Martinez Hematocrit (Bld) [Volume fraction] 41.5 % Normal 36.0-48.0 [facility] Comment on above: Performed By: #### P HOS, BMP, MG #### [facility] [address] [place] [address] Dr. Alysa Martinez Hemoglobin (Bld) [Mass/Vol] 13.0 g/dL Normal 12.0-16.0 [facility] Comment on above: Performed By: #### P HOS, BMP, MG #### [facility] [address] [place] [address] Dr. Alysa Martinez IG # 0.02 10e3/ul Normal 0.00-0.03 [facility] Comment on above: Performed By: #### P HOS, BMP, MG #### [facility] [address] [place] [address] Dr. Alysa Martinez IG % 0.3 % Normal 0.0-0.5 [facility] Comment on above: Performed By: #### P HOS, BMP, MG #### [facility] [address] [address] [address] Alysa Martinez LYMPH # 1.3 103/ul Normal 1.2-3.8 [facility] Comment on above: Performed By: #### P HOS, BMP, MG #### [facility] [address] [place] [address] Dr. Alysa Martinez Lymphocytes/100 WBC (Bld) 19.4 % Critically low 20.5-60.0 [facility] Comment on above: Performed By: #### P HOS, BMP, MG #### [facility] [address] [place] [address] Dr. Alysa Martinez MANUAL DIFF REQ NO Normal [facility] Comment on above: Performed By: #### P HOS, BMP, MG #### [facility] [address] [place] [address] Dr. Alysa Martinez MCH (RBC) [Entitic mass] 25.9 pg Critically low 26.7-34.0 [facility] Comment on above: Performed By: #### P HOS, BMP, MG #### [facility] [address] [place] [address] Dr. Alysa Martinez MCHC (RBC) [Mass/Vol] 31.3 g/dL Normal 29.9-35.2 [facility] Comment on above: Performed By: #### P HOS, BMP, MG #### [facility] [address] [place] [address] Dr. Alysa Martinez MCV (RBC) [Entitic vol] 82.8 fL Normal 81.0-99.0 [facility] Comment on above: Performed By: #### P HOS, BMP, MG #### [facility] [address] [address] [address] Alysa Martinez MONO # 0.4 103/ul Normal 0.3-0.8 [facility] Comment on above: Performed By: #### P HOS, BMP, MG #### [facility] [address] [address] [address] Alysa Martinez Monocytes/100 WBC (Bld) 5.9 % Normal 1.7-12.0 [facility] Comment on above: Performed By: #### P HOS, BMP, MG #### [facility] [address] [place] [address] Dr. Alysa Martinez NEUT # 4.9 103/ul Normal 1.4-6.5 [facility] Comment on above: Performed By: #### P HOS, BMP, MG #### [facility] [address] [place] [address] Dr. Alysa Martinez Neutrophils/100 WBC (Bld) 70.5 % Normal 43.0-75.0 [facility] Comment on above: Performed By: #### P HOS, BMP, MG #### [facility] [address] [place] [address] Dr. Alysa Martinez Platelet mean volume (Bld) [Entitic vol] 9.4 fL Critically low 9.5-13.5 [facility] Comment on above: Performed By: #### P HOS, BMP, MG #### [facility] [address] [place] [address] Dr. Alysa Martinez PLT 158 103/ul Normal 150-450 [facility] Comment on above: Performed By: #### P HOS, BMP, MG #### [facility] [address] [place] [address] Dr. Alysa Martinez RBC 5.01 106/ul Normal 4.20-5.40 [facility] Comment on above: Performed By: #### P HOS, BMP, MG #### [facility] [address] [place] [address] Dr. Alysa Martinez WBC 6.9 103/ul Normal 4.0-11.0 [facility] Comment on above: Performed By: #### P HOS, BMP, MG #### [facility] [address] [address] [address] Alysa Martinez CRPon 01-10-2023 CRP 12.0 mg/dL Critically high <=1.0 [facility] Comment on above: Performed By: #### P HOS, BMP, MG #### [facility] [address] [address] [address] Alysa Martinez Covid-19 PCR ([facility])on 12-18 SARS-CoV-2 (COVID-19) RNA MARITA+probe Ql (Unsp spec) Not detected Normal NOT DETECTED [facility] Comment on above: Result Comment: When diagnostic [...] for this test is supported by the [employer] and Human Service's declaration that [...] used). Performed By: #### R F #### [facility] [address] [address] [address] Alysa Martinez IRONon 01-10-2023 Iron [Mass/Vol] 55.0 ug/dL Normal 50.0-170.0 [facility] Comment on above: Performed By: #### M G, CMP #### [facility] [address] [address] [address] Alysa Martinez MAGNESIUMon 01-10-2023 Magnesium [Mass/Vol] 1.0 mg/dL Critically low 1.8-2.4 [facility] Comment on above: Performed By: #### M G, CMP #### [facility] [address] [place] [address] Dr. Alysa Martinez Magnesium [Mass/Vol] 0.5 mg/dL Critically low 1.8-2.4 [facility] Comment on above: Performed By: #### B MP #### [facility] [address] [place] [address] Dr. Alysa Martinez PHOSPHORUSon 01-10-2023 Phosphate [Mass/Vol] 2.5 mg/dL Critically low 2.6-4.7 [facility] Comment on above: Performed By: #### M G, CMP #### [facility] [address] [place] [address] Dr. Alysa Martinez POTASSIUMon 01-10-2023 Potassium [Moles/Vol] 1.2 mmol/L Critically low 3.5-5.1 [facility] Comment on above: Performed By: #### B MP #### [facility] [address] [place] [address] Dr. Alysa Martinez PROF 14(COMP METB)on 023 Albumin [Mass/Vol] 3.4 g/dL Normal 3.4-5.0 [facility] Comment on above: Performed By: #### P HOS, BMP, MG #### [facility] [address] [place] [address] Dr. Alysa Martinez Albumin/Globulin [Mass ratio] 1.2 {ratio} Normal [facility] Comment on above: Performed By: #### P HOS, BMP, MG #### [facility] [address] [place] [address] Dr. Alysa Martinez ALP [Catalytic activity/Vol] 70 U/L Normal 46-116 [facility] Comment on above: Performed By: #### P HOS, BMP, MG #### [facility] [address] [place] [address] Dr. Alysa Martinez ALT [Catalytic activity/Vol] 36 U/L Normal 14-59 [facility] Comment on above: Performed By: #### P HOS, BMP, MG #### [facility] [address] [address] [address] Alysa Martinez Anion gap [Moles/Vol] 11.1 mmol/L Normal [facility] Comment on above: Performed By: #### P HOS, BMP, MG #### [facility] [address] [place] [address] Dr. Alysa Martinez AST [Catalytic activity/Vol] 79 U/L Critically high 15-37 [facility] Comment on above: Performed By: #### P HOS, BMP, MG #### [facility] [address] [place] [address] Dr. Alysa Martinez Bilirubin [Mass/Vol] 0.6 mg/dL Normal 0.2-1.0 [facility] Comment on above: Performed By: #### P HOS, BMP, MG #### [facility] [address] [place] [address] Dr. Alysa Martinez Calcium [Mass/Vol] 7.8 mg/dL Critically low 8.5-10.[address] [facility] Comment on above: Performed By: #### P HOS, BMP, MG #### [facility] [address] [place] [address] Dr. Alysa Martinez Chloride [Moles/Vol] 90 mmol/L Critically low 98-107 [facility] Comment on above: Performed By: #### P HOS, BMP, MG #### [facility] [address] [place] [address] Dr. Alysa Martinez CO2 [Moles/Vol] 38.1 mmol/L Critically high 21.0-32.0 [facility] Comment on above: Performed By: #### P HOS, BMP, MG #### [facility] [address] [place] [address] Dr. Alysa Martinez Creatinine [Mass/Vol] 0.92 mg/dL Normal 0.55-1.02 [facility] Comment on above: Performed By: #### P HOS, BMP, MG #### [facility] [address] [place] [address] Dr. Alysa Martinez EGFR-AF CITIZEN [place] >60 Normal >=60 [facility] Comment on above: Performed By: #### P HOS, BMP, MG #### [facility] [address] [address] [address] Alysa Martinez EGFR-NON AF CITIZEN [place] >60 Normal >=60 [facility] Comment on above: Performed By: #### P HOS, BMP, MG #### [facility] [address] [address] [address] Alysa Martinez Globulin (S) [Mass/Vol] 2.9 g/dL Normal [facility] Comment on above: Performed By: #### P HOS, BMP, MG #### [facility] [address] [address] [address] Alysa Martinez Glucose [Mass/Vol] 136 mg/dL Critically high 74-106 [facility] Comment on above: Performed By: #### P HOS, BMP, MG #### [facility] [address] [place] [address] Dr. Alysa Martinez Potassium [Moles/Vol] 1.2 mmol/L Critically low 3.5-5.1 [facility] Comment on above: Performed By: #### P HOS, BMP, MG #### [facility] [address] [address] [address] Alysa Martinez Protein [Mass/Vol] 6.3 g/dL Critically low 6.4-8.[address] [facility] Comment on above: Performed By: #### P HOS, BMP, MG #### [facility] [address] [address] [address] Alysa Martinez Sodium [Moles/Vol] 138 mmol/L Normal 136-145 [facility] Comment on above: Performed By: #### P HOS, BMP, MG #### [facility] [address] [address] [address] Alysa Martinez Urea nitrogen [Mass/Vol] 12.0 mg/dL Normal 7.0-18.0 [facility] Comment on above: Performed By: #### P HOS, BMP, MG #### [facility] [address] [address] [address] Alysa Martinez Urea nitrogen/Creatinine [Mass ratio] 13.0 mg/mg Normal [facility] Comment on above: Performed By: #### P HOS, BMP, MG #### [facility] [address] [address] [address] Alysa Martinez PROF CHEM 8 (BAS METB)on Anion gap [Moles/Vol] 5.6 mmol/L Normal [facility] Comment on above: Performed By: #### M G, CMP #### [facility] [address] [place] [address] Dr. Alysa Martinez Calcium [Mass/Vol] 7.2 mg/dL Critically low 8.5-10.1 [facility] Comment on above: Performed By: #### M G, CMP #### [facility] [address] [place] [address] Dr. Alysa Martinez Chloride [Moles/Vol] 94 mmol/L Critically low 98-107 [facility] Comment on above: Performed By: #### M G, CMP #### [facility] [address] [place] [address] Dr. Alysa Martinez CO2 [Moles/Vol] 38.8 mmol/L Critically high 21.0-32.0 [facility] Comment on above: Performed By: #### M G, CMP #### [facility] [address] [place] [address] Dr. Alysa Martinez Creatinine [Mass/Vol] 0.90 mg/dL Normal 0.55-1.02 [facility] Comment on above: Performed By: #### M G, CMP #### [facility] [address] [place] [address] Dr. Alysa Martinez EGFR-AF CITIZ[place] >60 Normal >=60 [facility] Comment on above: Performed By: #### M G, CMP #### [facility] [address] [place] [address] Dr. Alysa Martinez EGFR-NON AF CITIZEN [place] >60 Normal >=60 [facility] Comment on above: Performed By: #### M G, CMP #### [facility] [address] [place] [address] Dr. Alysa Martinez Glucose [Mass/Vol] 154 mg/dL Critically high 74-106 [facility] Comment on above: Performed By: #### M G, CMP #### [facility] [address] [place] [address] Dr. Alysa Martinez Potassium [Moles/Vol] 1.4 mmol/L Critically low 3.5-5.1 [facility] Comment on above: Performed By: #### M G, CMP #### [facility] [address] [place] [address] Dr. Alysa Martinez Sodium [Moles/Vol] 137 mmol/L Normal 136-145 [facility] Comment on above: Performed By: #### M G, CMP #### [facility] [address] [place] [address] Dr. Alysa Martinez Urea nitrogen [Mass/Vol] 11.0 mg/dL Normal 7.0-18.0 [facility] Comment on above: Performed By: #### M G, CMP #### [facility] [address] [place] [address] Dr. Alysa Martinez Urea nitrogen/Creatinine [Mass ratio] 12.2 mg/mg Normal [facility] Comment on above: Performed By: #### M G, CMP #### [facility] [address] [place] [address] Dr. Alysa Martinez URIC ACID SERUMon 01-10-2023 Urate [Mass/Vol] 3.2 mg/dL Normal 2.6-6.0 [facility] Comment on above: Performed By: #### P HOS, BMP, MG #### [facility] [address] [place] [address] Dr. Alysa Martinez VITAMIN D 25 OHon 01-10-2023 VIT D 25-OH 10.0 ng/mL Normal [facility] Comment on above: Performed By: #### M G, CMP #### [facility] [address] [place] [address] Dr. Alysa Martinez VIT D RANGES SEE BELOW Normal [facility] Comment on above: Result Comment: <20 ng/mL Vit D deficient 20 - <30 ng/mL Vit D insufficient 30 - 100 ng/mL Vit D sufficient >100 ng/mL Potential Toxicity Performed By: #### M G, CMP #### [facility] [address] [address] [address] Alysa Martinez Office Visit (Cardiology)on 12-18-2022 [...] we can help. You may also call [phone] for free resources and assistance.; Status:Complete - [...] Follow up in 1 year. Chief Complaint TAWANA MORRISON is being seen for an annual [...] Recorded: 18Dec2022 10:05AM Heart Rate80, R Radial [id number], LUE, Sitting Dtjpsoswp57, LUE, Sitting Height5 ft 8 in [id number] lb 2 oz BMI Nvaiuqeotx65.17 kg/m2 BSA Calculated2.12 Tobacco Usea) Yes Patient [...] Screening.on 023 Adult depression screening assessment No [facility] 250 DO Work Phone: Fall risk assessment a) No falls within the last year [facility] 250 DO Work Phone: Tobacco use status [facility] a) Yes [facility] 250 DO Work Phone: Tobacco Screening. Yes [facility] 250 DO Work Phone: CBC AUTO DIFFon 09-18-2022 BASO # 0.0 103/ul Normal 0.0-0.1 [facility] Comment on above: Performed By: #### M G, CMP #### [facility] [address] [address] [address] Alysa Martinez Basophils/100 WBC (Bld) 0.3 % Normal 0.2-2.0 [facility] Comment on above: Performed By: #### M G, CMP #### [facility] [address] [address] [address] Alysa Martinez EO # 0.2 103/ul Normal 0.0-0.7 [facility] Comment on above: Performed By: #### M G, CMP #### [facility] [address] [place] [address] Dr. Alysa Martinez Eosinophils/100 WBC (Bld) 2.2 % Normal 0.9-7.0 [facility] Comment on above: Performed By: #### M G, CMP #### [facility] [address] [place] [address] Dr. Alysa Martinez Erythrocyte distribution width (RBC) [Ratio] 18.7 % Critically high 11.0-15.0 [facility] Comment on above: Performed By: #### M G, CMP #### [facility] [address] [place] [address] Dr. Alysa Martinez Hematocrit (Bld) [Volume fraction] 44.0 % Normal 36.0-48.0 [facility] Comment on above: Performed By: #### M G, CMP #### [facility] [address] [place] [address] Dr. Alysa Martinez Hemoglobin (Bld) [Mass/Vol] 13.3 g/dL Normal 12.0-16.0 [facility] Comment on above: Performed By: #### M G, CMP #### [facility] [address] [place] [address] Dr. Alysa Martinez IG # 0.03 10e3/ul Normal 0.00-0.03 [facility] Comment on above: Performed By: #### M G, CMP #### [facility] [address] [place] [address] Dr. Alysa Martinez IG % 0.3 % Normal 0.0-0.5 [facility] Comment on above: Performed By: #### M G, CMP #### [facility] [address] [place] [address] Dr. Alysa Martinez LYMPH # 1.5 103/ul Normal 1.2-3.8 [facility] Comment on above: Performed By: #### M G, CMP #### [facility] [address] [place] [address] Dr. Alysa Martinez Lymphocytes/100 WBC (Bld) 17.4 % Critically low 20.5-60.0 [facility] Comment on above: Performed By: #### M G, CMP #### [facility] [address] [place] [address] Dr. Alysa Martinez MANUAL DIFF REQ NO Normal [facility] Comment on above: Performed By: #### M G, CMP #### [facility] [address] [place] [address] Dr. Alysa Martinez MCH (RBC) [Entitic mass] 23.5 pg Critically low 26.7-34.0 [facility] Comment on above: Performed By: #### M G, CMP #### [facility] [address] [place] [address] Dr. Alysa Martinez MCHC (RBC) [Mass/Vol] 30.2 g/dL Normal 29.9-35.2 [facility] Comment on above: Performed By: #### M G, CMP #### [facility] [address] [place] [address] Dr. Alysa Martinez MCV (RBC) [Entitic vol] 77.9 fL Critically low 81.0-99.0 [facility] Comment on above: Performed By: #### M G, CMP #### [facility] [address] [place] [address] Dr. Alysa Martinez MONO # 0.6 103/ul Normal 0.3-0.8 [facility] Comment on above: Performed By: #### M G, CMP #### [facility] [address] [place] [address] Dr. Alysa Martinez Monocytes/100 WBC (Bld) 6.7 % Normal 1.7-12.0 [facility] Comment on above: Performed By: #### M G, CMP #### [facility] [address] [place] [address] Dr. Alysa Martinez NEUT # 6.5 103/ul Normal 1.4-6.5 [facility] Comment on above: Performed By: #### M G, CMP #### [facility] [address] [place] [address] Dr. Alysa Martinez Neutrophils/100 WBC (Bld) 73.1 % Normal 43.0-75.0 [facility] Comment on above: Performed By: #### M Alvin, CMP #### [facility] [address] [address] [address] Alysa Martinez Platelet mean volume (Bld) [Entitic vol] 8.8 fL Critically low 9.5-13.5 [facility] Comment on above: Performed By: #### Kika Esquivel, CMP #### [facility] [address] [address] [address] Alysa Martinez PLT 222 103/ul Normal 150-450 [facility] Comment on above: Performed By: #### Kika G, CMP #### [facility] [address] [place] [address] Dr. Alysa Martinez RBC 5.65 106/ul Critically high 4.20-5.40 [facility] Comment on above: Performed By: #### Kika Esquivel, CMP #### [facility] [address] [address] [address] Alysa Martinez WBC 8.8 103/ul Normal 4.0-11.0 [facility] Comment on above: Performed By: #### Kika Esquivel, CMP #### [facility] [address] [place] [address] Dr. Alysa Martinez FREE T3on 09-18-2022 FREE T3 2.16 pg/mlL Critically low 2.18-3.98 [facility] Comment on above: Performed By: #### B MP #### [facility] [address] [place] [address] Dr. Alysa Martinez GLYCOHEMOGLOBIN A1Con 2021 ADA RECOMMENDATION SEE BELOW Normal [facility] Comment on above: Result Comment: ADA RECOMMENDED LIMIT 4.0 - 6.0 ADA THERAPEUTIC TARGET < 7.0 ACTION SUGGESTED > 7.0 Performed By: #### R F #### [facility] [address] [place] [address] Dr. Alysa Martinez Glucose [Mass/Vol] 223 mg/dL Normal [facility] Comment on above: Performed By: #### R F #### [facility] [address] [address] [address] Alysa Martinez HbA1c (Bld) [Mass fraction] 9.4 % Critically high 4.5-6.2 [facility] Comment on above: Performed By: #### R F #### [facility] [address] [address] [address] Alysa Martinez LIPID PROFILEon 09-18-2022 CHOL-HDL RATIO NORM SEE BELOW Normal [facility] Comment on above: Result Comment: 3.3 - 4.4 LOW RISK 4.4 - 7.1 AVERAGE RISK 7.1 - 11.0 MODERATE RISK >11.0 HIGH RISK Performed By: #### B MP #### [facility] [address] [address] [address] Alysa Martinez Cholesterol [Mass/Vol] 123 mg/dL Normal <=200 [facility] Comment on above: Performed By: #### B MP #### [facility] [address] [address] [address] Alysa Martinez Cholesterol in HDL [Mass/Vol] 31 mg/dL Critically low 40-60 [facility] Comment on above: Performed By: #### B MP #### [facility] [address] [address] [address] Alysa Martinez Cholesterol in LDL [Mass/Vol] 53.0 mg/dL Normal [facility] Comment on above: Performed By: #### B MP #### [facility] [address] [address] [address] Alysa Martinez Cholesterol.total/Cho lesterol in HDL [Mass ratio] 4.0 {ratio} Normal [facility] Comment on above: Performed By: #### B MP #### [facility] [id number] Alysa Martinez HDL NORMAL > or = 60 mg/dl - LO W CARDIOVASCULAR RISK <40 mg/dl - HIGH CARDIOVASCULAR RISK Normal [facility] Comment on above: Performed By: #### B MP #### [facility] [address] [address] [address] Alysa Martinez LDL CALC NORMAL SEE BELOW Normal [facility] Comment on above: Result Comment: <100 mg/dl OPTIMAL 100 - 129 mg/dl NEAR OR ABOVE OPTIMAL 130 - 159 mg/dl BORDERLINE HIGH 160 - 189 mg/dl HIGH >190 mg/dl VERY HIGH Performed By: #### B MP #### [facility] [address] [place] [address] Dr. Alysa Martinez Triglyceride [Mass/Vol] 195 mg/dL Critically high <=150 [facility] Comment on above: Performed By: #### B MP #### [facility] [address] [place] [address] Dr. Alysa Martinez VLDL CALC 39.0 mg/dL Normal [facility] Comment on above: Performed By: #### B MP #### [facility] [address] [place] [address] Dr. Alysa Martinez PROF 14(COMP METB)on 022 Albumin [Mass/Vol] 3.3 g/dL Critically low 3.4-5.[address] [facility] Comment on above: Performed By: #### B MP #### [facility] [address] [place] [address] Dr. Alysa Martinez Albumin/Globulin [Mass ratio] 0.8 {ratio} Normal [facility] Comment on above: Performed By: #### B MP #### [facility] [address] [place] [address] Dr. Aylsa Martinez ALP [Catalytic activity/Vol] 69 U/L Normal 46-116 [facility] Comment on above: Performed By: #### B MP #### [facility] [address] [place] [address] Dr. Alysa Martinez ALT [Catalytic activity/Vol] 20 U/L Normal 14-59 [facility] Comment on above: Performed By: #### B MP #### [facility] [address] [place] [address] Dr. Alysa Martinez Anion gap [Moles/Vol] 10.4 mmol/L Normal [facility] Comment on above: Performed By: #### B MP #### [facility] [address] [place] [address] Dr. Alysa Martinez AST [Catalytic activity/Vol] 11 U/L Critically low 15-37 [facility] Comment on above: Performed By: #### B MP #### [facility] [address] [place] [address] Dr. Alysa Martinez Bilirubin [Mass/Vol] 0.3 mg/dL Normal 0.2-1.0 [facility] Comment on above: Performed By: #### B MP #### [facility] [address] [address] [address] Alysa Martinez Calcium [Mass/Vol] 8.9 mg/dL Normal 8.5-10.1 [facility] Comment on above: Performed By: #### B MP #### [facility] [address] [place] [address] Dr. Alysa Martinez Chloride [Moles/Vol] 88 mmol/L Critically low 98-107 [facility] Comment on above: Performed By: #### B MP #### [facility] [address] [place] [address] Dr. Alysa Martinez CO2 [Moles/Vol] 33.7 mmol/L Critically high 21.0-32.0 [facility] Comment on above: Performed By: #### B MP #### [facility] [address] [place] [address] Dr. Alysa Martinez Creatinine [Mass/Vol] 0.78 mg/dL Normal 0.55-1.02 [facility] Comment on above: Performed By: #### B MP #### [facility] [address] [place] [address] Dr. Alysa Martinez EGFR-AF CITIZEN OF [place] >60 Normal >=60 [facility] Comment on above: Performed By: #### B MP #### [facility] [address] [address] [address] Alysa Martinez EGFR-NON AF CITIZEN OF THE [place] >60 Normal >=60 [facility] Comment on above: Performed By: #### B MP #### [facility] [address] [place] [address] Dr. Alysa Martinez Globulin (S) [Mass/Vol] 4.1 g/dL Normal [facility] Comment on above: Performed By: #### B MP #### [facility] [address] [address] [address] Alysa Martinez Glucose [Mass/Vol] 182 mg/dL Critically high 74-106 T [facility] Comment on above: Performed By: #### B MP #### [facility] [address] [address] [address] Alysa Martinez Potassium [Moles/Vol] 4.1 mmol/L Normal 3.5-5.1 [facility] Comment on above: Performed By: #### B MP #### [facility] [address] [address] [address] Alysa Martinez Protein [Mass/Vol] 7.4 g/dL Normal 6.4-8.2 [facility] Comment on above: Performed By: #### B MP #### [facility] [address] [address] [address] Alysa Martinez Sodium [Moles/Vol] 128 mmol/L Critically low 136-[address] [facility] Comment on above: Performed By: #### B MP #### [facility] [address] [address] [address] Alysa Martinez Urea nitrogen [Mass/Vol] 15.0 mg/dL Normal 7.0-18.0 [facility] Comment on above: Performed By: #### B MP #### [facility] [address] [address] [address] Alysa Martinez Urea nitrogen/Creatinine [Mass ratio] 19.2 mg/mg Normal [facility] Comment on above: Performed By: #### B MP #### [facility] [address] [address] [address] Alysa Martinez T4on 09-18-2022 T4 [Mass/Vol] 5.90 ug/dL Normal 4.80-13.90 [facility] Comment on above: Performed By: #### B MP #### [facility] [address] [address] [address] Alysa Martinez TSHon 09-18-2022 TSH 2.022 uIU/mL Normal 0.358-3.740 [facility] Comment on above: Performed By: #### B MP #### [facility] [address] [address] [address] Alysa Martinez VITAMIN D 25 OHon 09-18-2022 VIT D 25-OH 9.8 ng/mL Normal [facility] Comment on above: Performed By: #### P HOS, BMP, MG #### [facility] [id number] Alysa Martinez VIT D RANGES SEE BELOW Normal [facility] Comment on above: Result Comment: <20 ng/mL Vit D deficient 20 - <30 ng/mL Vit D insufficient 30 - 100 ng/mL Vit D sufficient >100 ng/mL Potential Toxicity Performed By: #### P HOS, BMP, MG #### [facility] [address] [place] [address] Dr. Alysa Martinez Covid-19 PCR (CVDTB)on 05-20 SARS-CoV-2 (COVID-19) RNA MARITA+probe Ql (Unsp spec) Not detected Normal NOT DETECTED [facility] Comment on above: Result Comment: This test is not yet approved or cleared by the [place] FDA. When there are no FDA-approved or cleared tests available, and other criteria are met, FDA can make tests available under an emergency access mechanism called an Emergency Use Authorization (EUA). The EUA for this test is supported by the [place] [employer] of Health and Human Service's (HHS's) declaration [...] SARS-CoV-2. Performed By: #### B MP #### [facility] [address] [address] [address] Alysa Martinez Covid-19 PCR (CVDTBH)on 04-18 SARS-CoV-2 (COVID-19) RNA MARITA+probe Ql (Unsp spec) Not detected Normal NOT DETECTED [facility] Comment on above: Result Comment: When diagnostic [...] for this test is supported by the [place] [employer] of Health and Human Service's declaration that [...] By: #### P HOS, BMP, MG #### [facility] [address] [place] [address] Dr. Alysa Martinez Physician Referralon 021 Physician Referral [id number]:127 Normal [facility] Physician Referralon 021 Physician Referral [id number]:127 Normal [facility] Vital Signs Date Time Vital Sign Value Performing Clinician Faci lity 01-04-2025 07:59-0400 Body height 172.7 cm Pati Vilchis MARKETING OPERATIONS SPECIALIST-FISH AGENT Work Phone: [facility] 01-04-2025 07:59-0400 Body mass index (BMI) [Ratio] 38.01 kg/m2 Pati Vilchis MARKETING OPERATIONS SPECIALIST-FISH AGENT Work Phone: [facility] 01-04-2025 07:59-0400 Body weight 113.4 kg Pati Vilchis MARKETING OPERATIONS SPECIALIST-FISH AGENT Work Phone: [facility] 01-04-2025 07:59-0400 Diastolic blood pressure 62 mm[Hg] Pati Vilchis MARKETING OPERATIONS SPECIALIST-FISH AGENT Work Phone: [facility] 01-04-2025 07:59-0400 Heart rate 68 /min Pati Vilchis MARKETING OPERATIONS SPECIALIST-FISH AGENT Work Phone: [facility] 01-04-2025 07:59-0400 Systolic blood pressure 104 mm[Hg] Pati Vilchis MARKETING OPERATIONS SPECIALIST-FISH AGENT Work Phone: [facility] 12-18-2022 10:05-0500 Body height 172.72 cm Rocío M Hoy Work Phone: [facility] 250 DO Work Phone: 12-18-2022 10:05-0500 Body mass index (BMI) [Ratio] 33.17 kg/m2 Rocío M Hoy Work Phone: [facility] 250 DO Work Phone: 12-18-2022 10:05-0500 Body surface area Derived from formula 2.12 m2 Rocío M Hoy Work Phone: [facility] 250 DO Work Phone: 12-18-2022 10:05-0500 Body weight 98.94 kg Rocío M Hoy Work Phone: [facility] 250 DO Work Phone: 12-18-2022 10:05-0500 Diastolic blood pressure 74 mm[Hg] Rocío M Hoy Work Phone: [facility] 250 DO Work Phone: 12-18-2022 10:05-0500 Heart rate 80 /min Rocío M Hoy Work Phone: [facility] 250 DO Work Phone: 12-18-2022 10:05-0500 Systolic blood pressure 128 mm[Hg] Rocío M Shaunna Work Phone: [facility] 250 DO Work Phone: Encounters Encounter Date Encounter Type Care Provider Facility Start: 01-04-2025 End: 01-04-2025 Office outpatient visit 15 minutes Pati Vilchis MARKETING OPERATIONS SPECIALIST-FISH AGENT Work Phone: [facility] Comment on above: Coronary artery dise ase involving [place] coronary artery of [place] heart without angina pectoris (Primary Dx); Mixed hyperlipidemia; Primary hypertension; BMI 38.0-38.9,adult; Current smoker Start: 02-16-[address] ROCÍO MAZA . Facili ty:[facility] Start: 01-26-2023 Rx Renewal Rocío Kika Shaunna Work Phone: [facility] 250 DO Work Phone: Start: 01-23-2023 End: 02-15-[address] ROCÍO MAZA . Facility:[facility] Start: 01-16-2023 End: 01-17-[address] ROCÍO MAZA . Facility:[facility] Start: 01-12-2023 End: 01-13-2023 Evaluation and management of inpatient DR ROCÍO MAZA . Facility:[facility] Start: 01-10-2023 End: 01-11-2023 ambulatory DAYNA PICKARD Facility:[facility] Start: 12-26-2022 Rx Renewal Rocío M Shaunna Work Phone: [facility] 250 DO Work Phone: Start: 12-18-2022 ambulatory Sukh Mcdaniel y: Start: 12-18-2022 Office outpatient vi sit 15 minutes Rocío Maza Work Phone: [facility] 250 DO Work Phone: Start: 11-07-2022 Rx Renewal Tiffany Shelby MD Work Phone: [facility] 250 DO Work Phone: Start: 10-24-2022 Rx Renewal Tiffany Shelby MD Work Phone: [facility] [facility] DO Work Phone: Start: 10-09-2022 End: 10-10-[address] ROCÍO MAZA . Facility:[facility] Start: 09-20-2022 Encounter for genera l adult medical examination without abnormal findings DR ROCÍO MAZA . [facility] Start: 09-18-2022 End: 09-19-[address] ROCÍO MAZA . Facility:[facility] Start: 09-18-2022 End: 09-19-2022 Encounter for general adult medical examination without abnormal findings DR ROCÍO MAZA . Facility:[facility] Start: 09-03-2022 Rx Renewal Tiffany Shelby MD Work Phone: [facility] 250 DO Work Phone: Start: 08-29-2022 Rx Renewal Tiffany Shelby MD Work Phone: [facility] 250 DO Work Phone: Start: 06-16-2022 End: 06-16-[address] ROCÍO MAZA . Facility:[facility] Start: 05-05-2022 End: 05-05-[address] ROCÍO MAZA . Facility:[facility] Start: 11-07-2021 Rx Renewal Sukh monzon DO Work Phone: [facility] 250 DO Work Phone: Start: 09-03-2021 Rx Renewal Tiffany Shelby MD Work Phone: [facility] [address] [place] Work Phone: Procedures Date Procedure Procedure Detail Performing Clinician Start: 11-13-2023 History of percutane ous transluminal coronary angioplasty History of PTCA Pati Vilchis MARKETING OPERATIONS SPECIALIST-FISH AGENT Work Phone: Cardiac catheterization Will john Anderson DO Work Phone: Comment on above: X1; section Sukh brown DO Work Phone: Comment on above: X1; History of percutane ous transluminal coronary angioplasty History of PTCA Rocío Maza Work Phone: Ligation of fallopian tube Mike Anderson Work Phone: Plan of Treatment Date Care Activity Detail Author Start: 12-28-2025 End: 12-28-2025 Patient encounter procedure 12/28/2025 9:10 AM EDT Office Visit [facility] [address] [place] [address] Sukh Anderson DO [address] [place] [address] [facility] Start: 01-04-2025 End: 01-04-2026 Alanine aminotransferase [Enzymatic activity/volume] in Serum or Plasma by With P-5'-P Alanine Aminotransferase Lab Routine Coronary artery disease involving [place] coronary artery of [place] heart without angina pectoris Mixed hyperlipidemia Primary hypertension Expected: 01/04/2025 (Approximate), Expires: 01/04/2026 [facility] Work Phone: Comment on above: Expected: 01/04/2025 (Approximate), Expi res: 01/04/2026 Start: 01-04-2025 End: 01-04-2026 Aspartate aminotransferase [Enzymatic activity/volume] in Serum or Plasma by With P-5'-P Aspartate Aminotransferase Lab Routine Coronary artery disease involving [place] coronary artery of [place] heart without angina pectoris Mixed hyperlipidemia Primary hypertension Expected: 01/04/2025 (Approximate), Expires: 01/04/2026 [facility] Work Phone: Comment on above: Expected: 01/04/2025 (Approximate), Expi res: 01/04/2026 Start: 01-04-2025 End: 01-04-2026 Basic metabolic 2000 panel - Serum or Plasma Basic Metabolic Panel Lab Routine Coronary artery disease involving [place] coronary artery of [place] heart without angina pectoris Mixed hyperlipidemia Primary hypertension Expected: 01/04/2025 (Approximate), Expires: 01/04/2026 [facility] Work Phone: Comment on above: Expected: 01/04/2025 (Approximate), Expi res: 01/04/2026 Start: 01-04-2025 End: 01-04-2026 Lipid 1996 panel - Serum or Plasma Lipid Panel Lab Routine Coronary artery disease involving [place] coronary artery of [place] heart without angina pectoris Mixed hyperlipidemia Expected: 01/04/2025 (Approximate), Expires: 01/04/2026 [facility] Work Phone: Comment on above: Expected: 01/04/2025 (Approximate), Expi res: 01/04/2026 Start: 06-19-2024 COVID-19 Vaccine ( season) COVID-19 Vaccine ( season) [facility] Start: 06-19-2024 Influenza vaccination Influenza Vaccine (#1) [facility] Start: 12-23-2023 FUV, Provider: Sukh Anderson, Status: Pen, Time: 9:50 AM FUV, Provider: Sukh Anderson, Status: Pen, Time: 9:50 AM -[facility] [facility] DO Work Phone: Start: 2023 Zoster Vaccines (1 of 2) Zoster Vaccines (1 of 2) [facility] Start: 12-18-2022 FUV, Provider: Sukh Anderson, Status: Pen, Time: 9:40 AM FUV, Provider: Sukh Anderson, Status: Pen, Time: 9:40 AM [facility] 250 DO Work Phone: Start: 10-22-2021 FUV, Provider: Sukh Anderson, Status: Pen, Time: 9:15 AM FUV, Provider: Sukh Anderson, Status: Pen, Time: 9:15 AM -[facility] [address] [place] Work Phone: Start: 2013 Screening for malignant neoplasm of breast Mammogram [facility] Start: 1995 DTaP/Tdap/Td Vaccines (1 - Tdap) DTaP/Tdap/Td Vaccines (1 - Tdap) [facility] Start: 1994 Screening for malignant neoplasm of cervix [facility] Start: 1992 Hepatitis B Vaccines (1 of 3 - 19+ 3-dose series) Hepatitis B Vaccines (1 of 3 - 19+ 3-dose series) [facility] Start: 1992 Pneumococcal vaccination Pneumococcal Vaccine (1 of 2 - PCV) [facility] Start: 1991 Diabetes mellitus screening Diabetes Screening [facility] Start: 1991 Hepatitis C screening Hepatitis C Screening [facility] Start: 1974 MMR Vaccines (1 of 1 - Standard series) MMR Vaccines (1 of 1 - Standard series) [facility] Start: 1973 HIV screening HIV Screening [facility] Start: 1973 Lipid panel Lipid Panel [facility] Start: 1973 Screening for malignant neoplasm of colon [facility] Start: 1973 Yearly Adult Physical Yearly Adult Physical [facility] Immunizations Immunization Date Immunization Notes Care Provider Vlad cash 03-30-2021 Pfizer-BioNTech COVI D-19 Vacc 30 MCG/0.3ML Intramuscular Suspension Sukh Anderson DO Work Phone: -[facility] 250 DO Work Phone: 03-09-2021 Pfizer-BioNTech COVI D-19 Vacc 30 MCG/0.3ML Intramuscular Suspension Sukh Anderson DO Work Phone: [facility] 250 DO Work Phone: Payers Date Payer Category Payer [employer] Wilber dorsey [facility] [id number] 1973 Unknown [id number] 1973 Unknown [id number] 593 1973 Unknown [id number]. 593 1973 Unknown [id number] 593 1973 Unknown [id number] 593 1973 Unknown [id number]. 593 1973 Unknown [id number]. 593 1973 Unknown [id number]. 593 1973 Unknown [id number] 593 1973 Unknown [id number] [id number] [facility] Social History Date Type Detail Facility Start: 01-04-2025 Occasional alcohol use Occasional al cohol use -[facility] 250 DO Work Phone: Comment on above: A FEW SATURDAYS; 4 BOTTLES DIET PEPSI ; 3/4 PPD; 1/2 PPD; Start: 01-04-2025 [facility] daily [facility] History of tobacco use Cigarette Smoker [facility] Work Phone: Start: 01-04-2025 Tobacco use and exposure Former smokeless tobacco user [facility] Work Phone: Start: 01-04-2025 Alcoholic beverage intake Lifetime non-drinker (finding) [facility] Work Phone: Start: 01-04-2025 Tobacco use panel [facility] Work Phone: Start: 1975 Sex assigned at Female [facility] Start: 02-29-2024 Gender identity Identifies as female gender (finding) [facility] Work Phone: Start: 12-25-2024 End: 01-04-2025 Exposure to SARS-CoV-2 (event) Not sure [facility] Evaluation + Plan note 01-04-2025 Assessment & Plan Note - RASHAWN Mahmood - 01/04/2025 8:46 AM EDT Note Date & Type Note Facility 01-04-2025 Evaluation + Plan note Associated Problem(s): BMI 38.0-38.9,adult Reviewed the merits of healthy lifestyle choices on overall cardiovascular health. [facility] Work Phone: Evaluation + Plan note 01-04-2025 Assessment & Plan Note - RASHAWN Mahmood - 01/04/2025 8:46 AM EDT Note Date & Type Note Facility 01-04-2025 Evaluation + Plan note Associated Problem(s): Hypertension Optimal in office [facility] Work Phone: Evaluation + Plan note 01-04-2025 Assessment & Plan Note - RASHAWN Mahmood - 01/04/2025 8:46 AM EDT Note Date & Type Note Facility 01-04-2025 Evaluation + Plan note Associated Problem(s): HLD (hyperlipidemia) High intensity statin Due for labs [facility] Work Phone: Evaluation + Plan note 01-04-2025 Assessment & Plan Note - RASHAWN Mahmood - 01/04/2025 8:46 AM EDT Note Date & Type Note Facility 01-04-2025 Evaluation + Plan note Associated Problem(s): CAD (coronary artery disease) Nov 2019 NSTEMI Nov 30, 2019 mCX PCI/Tomeka 3/18mm Ostial/proximal LM spasm Mid LAD spasm Diagonal 25% Mid RCA 40% LVEF 65% Current daily activity greater than 4 METS without recurrent symptoms. [facility] Work Phone: Note 01-04-2025 Assessment & Plan Note - RASHAWN Mahmood - 01/04/2025 8:46 AM EDTAssessment & Plan Note - RASHAWN Mahmood - 01/04/2025 8:46 AM EDT Note Date & Type Note Facility 01-04-2025 Miscellaneous Notes Associated Problem(s): BMI 38.0-38.9,adult Reviewed the merits of healthy lifestyle choices on overall cardiovascular health. Associated Problem(s): Hypertension Optimal in office Associated Problem(s): HLD (hyperlipidemia) High intensity statin Due for labs Associated Problem(s): CAD (coronary artery disease) Nov 2019 NSTEMI Nov 30, 2019 mCX PCI/Tomeka 3/18mm Ostial/proximal LM spasm Mid LAD spasm Diagonal 25% Mid RCA 40% LVEF 65% Current daily activity greater than 4 METS without recurrent symptoms. Associated Problem(s): Current smoker 1 pack per day Since age of 16 Prior: Nausea with chantix, no benefit patches I want to quit Willing to try Wellbutrin documented in this encounter [facility] Work Phone: Evaluation + Plan note 01-04-2025 Assessment & Plan Note - RASHAWN Mahmood - 01/04/2025 8:14 AM EDT Note Date & Type Note Facility 01-04-2025 Evaluation + Plan note Associated Problem(s): Current smoker 1 pack per day Since age of 16 Prior: Nausea with chantix, no benefit patches I want to quit Willing to try Wellbutrin [facility] Work Phone: History of Present illness Narrative 01-04-2025 RASHAWN Mahmood - 01/04/2025 8:00 AM EDT Note Date & Type Note Facility 01-04-2025 History of Present illness Narrative Chief Complaint Doing okay I just need to reestablish care Reason for Visit Overdue for annual follow-up Patient presents to the office today for outpatient follow-up for hypertension, hyperlipidemia, and coronary artery disease Last evaluated in clinic by Dr. Anderson December 2022. Since that time, she has been lost to follow-up with cardiology. Has been receiving medications from PCP. Presents today ambulatory with steady gait. Accompanied by patient Patient denies any hospitalizations or significant changes to interval medical history since last office follow-up. Follows routinely with PCP. History of Present Illness Patient is a pleasant 49-year-old who presents to the office with no voiced cardiovascular complaints. She remains aerobically active where she works full-time at a local factory, walks in from the parking lot without concerns. She is able to do housework, go to the grocery store and ambulated in from the parking lot today without symptoms. Her prior angina symptom was chest pain described as a hurting pain with radiation into her jaw, she denies any reoccurrence. No utilization of nitroglycerin. She would be unable to obtain baseline GXT due to chronic hip pain, unable to tolerate treadmill. She reports recovering from URI over the last month but denies any orthopnea or PND. Prior to URI she had no dyspnea on exertion. Patient reports that overall has no complaint(s) of chest pain, chest pressure/discomfort, claudication, dyspnea, exertional chest pressure/discomfort, fatigue, and irregular heart beat Daily activity: Greater than 4 METS Denies any change in exercise capacity or functional tolerance since last office visit. 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 Smoker: She has a [id number] history of smoking. Intolerant to Chantix and NicoDerm patches. She is ready to quit, reviewed Wellbutrin (benefit in reducing post cessation weight gain). She has no history of seizures, no alcohol use, no history of bipolar disorder. BMI: Reviewed the merits of healthy lifestyle choices on overall cardiovascular health. She will discuss Ozempic with PCP. Discussed the dynamic nature of coronary artery disease and the importance of seeking medical attention if new symptoms arise. Review of Systems Cardiovascular: Negative for chest pain, dyspnea on exertion, irregular heartbeat, leg swelling, near-syncope, orthopnea, palpitations, paroxysmal nocturnal dyspnea and syncope. Visit Vitals BP 104/62 (BP Location: Left arm, Patient Position: Sitting) Pulse 68 Ht 1.727 m (5' 8 ) Wt 113 kg (250 lb) BMI 38.01 kg/m Smoking Status Every Day BSA 2.33 m Physical Exam Vitals and nursing note reviewed. HENT: Head: Normocephalic. Cardiovascular: Rate and Rhythm: Normal rate and regular rhythm. Heart sounds: Normal heart sounds. Pulmonary: Effort: Pulmonary effort is normal. Breath sounds: Normal breath sounds. Abdominal: Palpations: Abdomen is soft. Musculoskeletal: Right lower leg: No edema. Left lower leg: No edema. Skin: General: Skin is warm and dry. Neurological: General: No focal deficit present. Mental Status: She is alert. Psychiatric: Mood and Affect: Mood normal. Behavior: Behavior normal. No Known Allergies Current Outpatient Medications Medication Instructions aspirin 81 mg, oral, Daily atorvastatin (LIPITOR) 80 mg, Daily buPROPion SR (WELLBUTRIN SR) 150 mg, oral, 2 times daily citalopram (CELEXA) 20 mg, Daily diclofenac (Voltaren) 50 mg EC tablet 1 tablet, Every 12 hours scheduled (0630,1830) lisinopril 40 mg, oral, Daily nitroglycerin (NITROSTAT) 0.4 mg, sublingual, Every 5 min PRN, May repeat dose every 5 minutes for up to 3 doses total. potassium (POTASSIMIN ORAL) 1 tablet, 2 times daily Assessment: Current smoker 1 pack per day Since age of 16 Prior: Nausea with chantix, no benefit patches I want to quit Willing to try Wellbutrin CAD (coronary artery disease) Nov 2019 NSTEMI Nov 30, 2019 mCX PCI/Tomeka 3/18mm Ostial/proximal LM spasm Mid LAD spasm Diagonal 25% Mid RCA 40% LVEF 65% Current daily activity greater than 4 METS without recurrent symptoms. HLD (hyperlipidemia) High intensity statin Due for labs Hypertension Optimal in office BMI 38.0-38.9,adult Reviewed the merits of healthy lifestyle choices on overall cardiovascular health. Plan: Through informed decision making process incorporating patients unique circumstances, the following treatment plan will be initiated: 1. Prescription drug management of cardiovascular medication for efficacy, adherence to treatment, side effect assessment and polypharmacy. Current treatment clinically warranted and to continue with following modifications: - Begin Wellbutrin 150 mg/day for 3 days, then 150 mg twice a day Start 1 to 2 weeks before quit date Side effects: Insomnia, agitation, dry mouth, headache 2. Annual labs (Chem6, lipids) 3. Return for follow-up; in the interim, contact the office if new symptoms arise. Dr. Anderson annual You need to stop smoking. Though it is not easy, more than half of all adults smokers have quit. We encourage you to write down all the reasons you should quit smoking and set a quit date for yourself. Ask us how we can help. You may also call 6-925-UTNY-NOW for free resources and assistance. Pati Vilchis MSN, MARKETING OPERATIONS SPECIALIST-FISH AGENT, PMHNP-[facility] [place], [place] Please excuse any errors in grammar or translation related to this dictation. Voice recognition software was utilized to prepare this document. documented in this encounter [facility] Work Phone: Instructions 01-04-2025 Patient Instructions Note Date & Type Note Facility 01-04-2025 Instructions RASHAWN Mahmood - 01/04/2025 8:00 AM EDT Please bring all medicines, vitamins, and herbal supplements with you when you come to the office. Prescriptions will not be filled unless you are compliant with your follow up appointments or have a follow up appointment scheduled as per instruction of your physician. Refills should be requested at the time of your visit. PLAN: Through informed decision making process incorporating patients unique circumstances, the following treatment plan will be initiated: 1. Prescription drug management of cardiovascular medication for efficacy, adherence to treatment, side effect assessment and polypharmacy. Current treatment clinically warranted and to continue with following modifications: - Begin Wellbutrin 150 mg/day for 3 days, then 150 mg twice a day Start 1 to 2 weeks before quit date Side effects: Insomnia, agitation, dry mouth, headache 2. Annual labs (Chem6, lipids) 3. Return for follow-up; in the interim, contact the office if new symptoms arise. Dr. Anderson annual You need to stop smoking. Though it is not easy, more than half of all adults smokers have quit. We encourage you to write down all the reasons you should quit smoking and set a quit date for yourself. Ask us how we can help. You may also call 9-230-YJSJ-NOW for free resources and assistance. documented in this encounter [facility] Work Phone: Clinical Note 10-10-2022 Note Date [...] by: MARY KATE ALVARENGA Date: 2022-10-10 11:06 [facility] Evaluation note Note Date & Type Note Facility Evaluation note Diagnosis Coronary artery disease involving [place] coronary artery of [place] heart without angina pectoris- Primary Mixed hyperlipidemia Primary hypertension Unspecified essential hypertension BMI 38.0-38.9,adult Current smoker documented in this encounter [facility] Work Phone: Summary Purpose Family History Unknown Family Member Name Dates Details FH: [...] Member Name Dates Details FH: diabetes mellitus: Kevine r(V18.0, Z83.3) Status:Active Family history of malignant [...] Advanced Directives Records Found Chief Complaint * TAWANA MORRISON is being seen for an annual [...] in 1 year, obtain lipid panel * TAWANA MORRISON is being seen for an annual [...] content) DATE CREATED AUTHOR 03/16/2021 Nikko Mendoza [facility] DATE CREATED AUTHOR AUTHOR'S ORGANIZ ATION 12/19/2022 [facility] DATE CREATED AUTHOR AUTHOR'S ORGANIZ ATION 12/20/2022 [employer] DATE CREATED AUTHOR AUTHOR'S ORGANIZ ATION 02/24/2023 [facility] Reason for Visit (unrecogniz ed section and content) Reason Comments Follow-up Overdue, med refill Follow up for Coronary Artery Disease Care Teams (unrecognized sec tion and content) Coal And [employer] Supervisor Relationship Specialty Start Date End Date Rocío Maza MD [address] [facility] [place] [address] PCP - General 12/18/22 FOR RECORDS PERTAINING TO PATIENTS WHO ARE [...] BE BASED ON THE PRIMARY CLINICAL RECORDS. [employer] [facility]. provides no warranty or guarantee of the accuracy or completeness of information in this document.
[2025-01-05 10:53] LABS: Alanine Aminotransferase 44 U/L (14-59); Anion Gap 13.8; Aspartate Amino Transferase 25 U/L (15-37); BUN Creatinine Ratio 18.7; Calcium 8.7 mg/dL (8.5-10.1); Carbon Dioxide 26.5 mmol/L (21.0-32.0); Chloride 98 mmol/L (98-107); Cholesterol 185 mg/dL (<=200); Estimated GFR (African America >60 (>=60 mL/min/1.73m^2); Estimated GFR (Non-African Ame 54 (>=60 mL/min/1.73m^2); Glucose 137 mg/dL (74-106); HDL Cholesterol 37 mg/dL (40-60); Potassium 4.3 mmol/L (3.5-5.1); Sodium 134 mmol/L (136-145); Triglycerides 579 mg/dL (<=150); VLDL CHOLESTEROL 115.8 mg/dL
[2025-01-05 11:50] LABS: LDL Cholesterol Direct 72 mg/dL
== END 2025-01-05 09:08 | disposition home or self-care (01) ==
LOC: LAB 09:11
PROVIDERS: PCP Family Medicine; Visit Provider Nurse Practitioner
DX: I25.10 Atherosclerotic heart disease of native coronary artery without angina pectoris (principal); E78.2 Mixed hyperlipidemia; I10 Essential (primary) hypertension
CPT/HCPCS: 36415; 80048; 80061; 83721; 84450; 84460

== ENCOUNTER 2025-05-25 07:57 | Outpatient (OUT) | payer SELFPAY ==
--- OUTSIDE RECORDS SUMMARY | 2025-05-11 05:53 | XMS_ITS ---
Author Organization [facility] in [place] Address [address] [place] [address] Care Team Providers Care Hand Finisher Name Role Phone Chidi Maza Primary Care Provider Medications Medication SIG (Take, Route, Fr equency, Duration) Notes Start Date End Date Status Bumetanide 2 MG 1 tablet Orally Once a day for 3 days 05/11/2025 Active Encounters Encounter Location Date Provider Diagnosis [facility] [address] [facility] [place] [address] 05/11/2025 Chidi Maza Plan Of Treatment Medication Medication Name Sig Start Date Stop Date Notes Bumetanide 2 MG 1 tablet Orally Once a day for 3 days 04/19 Progress Notes * Tawana MORRISON SDOB:1975 (49 yo F)Acc No.[id number]:05/11/2025 Patient: Tawana ALMAGUER :1975 A ge:49 Y S ex:Female Address:[address] [place], [address] * Refills Start Bumetanide Tablet, 2 MG, Orally, 3 Tablet, 1 tablet, Once a day, 3 days, Refills=0 * true * Date: Generated for Printi ng/Faxing/eTransmitting on: 0 05/25/2025 08:01 AM EDT
--- OUTSIDE RECORDS SUMMARY | 2025-05-16 03:59 | XMS_ITS ---
Author Organization [facility] in [place] Address [address] [place] [address] Care Team Providers Care Distributing Clerk Name Role Phone Chidi Maza Primary Care Provider REASON FOR VISIT LE Edema Medications Medication SIG (Take, Route, Fr equency, Duration) Notes Start Date End Date Status Cephalexin 500 MG 2 capsule Orally twi ce daily for 10 days 05/16/2025 Active Encounters Encounter Location Date Provider Diagnosis [facility] [address] [place] [address] 05/16/2025 Chidi Maza Edema of lower extremity R60.0 Assessments Encounter Date Diagnosis (ICD Code) Assessment Notes Treatment Notes Treatment Clinical Notes Section Notes 05/16/2025 Edema of lower extremity (ICD-10 - R60.0) Plan Of Treatment Medication Medication Name Sig Start Date Stop Date Notes Cephalexin 500 MG 2 capsule Orally twice daily for 10 days 05/16/2025 Pending Test Test Name Order Date US venous doppler LE BI 05/16/2025 Progress Notes * Tawana MORRISON SDOB:1975 (49 yo F)Acc No.[id number]:05/16/2025 Patient: Tawana ALMAGUER :1975 A ge:49 Y S ex:Female Address:[address] [place], [address] * Refills Start Cephalexin Capsule, 500 MG, Orally, 40, 2 capsule, twice daily, 10 days, Refills=0 Subjective: * Chief Complaints: * L E Edema * Medical History: * Surgical History: * Hospitalization/Major Diagno stic Procedure: * Medications: Objective: * Vitals: * Physical Examination: Assessment: * Assessment: 1. E ghulam of lower extremity - R60.0 (Primary) Plan: * Treatment: 2. O thers Start Cephalexin Capsule, 500 MG, 2 capsule, Orally, twice daily, 10 days, 40, Refills 0. ? * Procedure Codes: * true * Date: Generated for Donn venegas/Soledad/Abidasmitting on: 0 05/25/2025 08:01 AM EDT
--- OUTSIDE RECORDS SUMMARY | 2025-05-16 09:37 | XMS_ITS ---
Author Organization [facility] in [place] Address [address] [place] [address] Care Team Providers Care Passenger Coach Driver Name Role Phone Chidi Maza Primary Care Provider [phone] REASON FOR VISIT Meloxicam Encounters Encounter Location Date Provider Diagnosis [facility] [address] [facility] [address] 05/16/2025 Chidi Maza Plan Of Treatment No Information Progress Notes * Tawana MORRISON SDOB:1975 (49 yo F)Acc No.[id number]:05/16/2025 Patient: Tawana ALMAGUER :1975 A ge:49 Y S ex:Female Address:[address] , [place], [address] * true * Date: Generated for Printi ng/Faxing/eTransmitting on: 0 05/25/2025 08:01 AM EDT
--- OUTSIDE RECORDS SUMMARY | 2025-05-25 08:02 | XMS_ITS | Clinical Summary ---
Author Organization [facility] Address [address] [place] [address] Phone Care Team Providers Care Psychometrician Name Role Phone Tan Maza MD Primary Care Provider [phone] Allergies No known active allergies Medications atorvastatin (Lipitor) 80 mg tablet Take 1 tablet (80 mg) by mouth once daily. Active citalopram (CeleXA) 20 mg tablet Take 1 tablet (20 mg) by mouth once daily. Active lisinopril 40 mg tabletIndications :Primary hypertension Take 1 tablet (40 mg) by mouth once daily. 90 tablet 3 01/17/2025 9:56 AM EDT 5 12/28/19 26 Active diclofenac (Voltaren) 50 mg EC tablet Take 1 tablet (50 mg) by mouth every 12 hours. 5 Active potassium (POTASSIMIN ORAL) Take 1 tablet by mouth 2 times a day. Active buPROPion SR (Wellbutrin SR) 150 mg 12 hr tabletIndications :Current smoker Take 1 tablet (150 mg) by mouth 2 times a day. 60 tablet 3 5 01/05/20 26 Active nitroglycerin (Nitrostat) 0.4 mg SL tabletIndications :Coronary artery disease involving [place] coronary artery of [place] heart without angina pectoris Place 1 tablet (0.4 mg) under the tongue every 5 minutes if needed for chest pain. May repeat dose every 5 minutes for up to 3 doses total. 25 tablet 11 5 01/05/20 26 Active aspirin 81 mg EC tabletIndications :History of NV (myocardial infarction),Histo ry of PTCA Take 1 tablet (81 mg) by mouth once daily. 90 tablet 3 05/12/2025 11:06 AM EDT 01/19/20 Active Active Problems Problem Noted Date Diagnosed Date BMI 38.0-38.9,adult 01/04/2025 Assessment & Plan (01/04/2025 8:46 AM EDT): Reviewed the merits of healthy lifestyle choices on overall cardiovascular health. Anxiety 11/13/2023 CAD (coronary artery disease) 11/13/2023 Assessment & Plan (01/04/2025 8:46 AM EDT): Nov 2019 NSTEMI Nov 30, 2019 mCX PCI/Tomeka 3/18mm Ostial/proximal LM spasm Mid LAD spasm Diagonal 25% Mid RCA 40% LVEF 65% Current daily activity greater than 4 METS without recurrent symptoms. HLD (hyperlipidemia) 11/13/2023 Assessment & Plan (01/04/2025 8:46 AM EDT): High intensity statin Due for labs Hypertension 11/13/2023 Assessment & Plan (01/04/2025 8:46 AM EDT): Optimal in office Beta-lara intolerance 11/13/2023 History of NV (myocardial infarction) 11/13/2023 History of PTCA 11/13/2023 Current smoker 11/13/2023 Assessment & Plan (01/04/2025 8:14 AM EDT): 1 pack per day Since age of 16 Prior: Nausea with chantix, no benefit patches I want to quit Willing to try Wellbutrin Family History Medical History Relation Name Comments Cancer Father Diabetes Mother Relation Name Status Comments Father Mother Social History Tobacco Use Types Packs/Day Years Used Date Smoking Tobacco: Every Day Cigarettes Smokeless Tobacco: Former Tobacco Cessation:Ready to Q uit: Not Asked; Counseling Given: Yes Alcohol Use Standard Drinks/Week Comments Never 0 (1 standard drink = 0.6 oz pur e alcohol) Comments Unknown Sex and Gender Information Value Date Recorded Sex Assigned at Female 02/29/2024 5:42 PM EDT Legal Sex Female 12:44 AM EST Gender Identity Female 02/29/2024 5:42 PM EDT Sexual Orientation Not on file Last Filed Vital Signs Vital Sign Reading Time Taken Comments Blood Pressure 104/62 01/04/2025 7:59 AM EDT Pulse 68 01/04/2025 7:59 AM EDT Temperature - - Respiratory Rate - - Oxygen Saturation - - Inhaled Oxygen Concentration - - Weight 113 kg (250 lb) 01/04/2025 7:59 AM EDT Height 172.7 cm (5' 8 ) 01/04/2025 7:59 AM EDT Body Mass Index 38.01 01/04/2025 7:59 AM EDT Plan of Treatment Upcoming Encounters Date Type Department Care Team (Late st Contact Info) Description 12/28/2025 9:10 AM EDT Office Visit [facility] [address] [facility] [address] [place] [address] Sukh Anderson, [address] [facility] [address] [place] [address] Health Maintenance Due Date Last Done Comments CT Colonography 1975 Colonoscopy 1975 Colorectal Cancer Screening 1975 FIT-DNA (Cologuard) 1975 FIT 1975 HIV Screening 1975 Lipid Panel 1975 Sigmoidoscopy 1975 Yearly Adult Physical 1975 MMR Vaccines (1 of 1 - Stand damian series) 1974 Diabetes Screening 1991 Hepatitis C Screening 1991 Hepatitis B Vaccines (1 of 3 - 19+ 3-dose series) 1992 Pneumococcal Vaccine (1 of 2 - PCV) 1992 Cervical Cancer Screening 1994 HPV/Cotest 1994 Pap Smear 1994 DTaP/Tdap/Td Vaccines (1 - Tdap) 1995 Mammogram 2013 Zoster Vaccines (1 of 2) 2023 COVID-19 Vaccine (1 - 2023-2 5 season) 2024 Influenza Vaccine (#1) 2025 HIB Vaccines Aged Out No longer eligi ble based on patient's age to complete this topic HPV Vaccines Aged Out No longer eligi ble based on patient's age to complete this topic Hepatitis A Vaccines Aged Out No long er eligible based on patient's age to complete this topic IPV Vaccines Aged Out No longer eligi ble based on patient's age to complete this topic Meningococcal Vaccine Aged Out No ugo ruben eligible based on patient's age to complete this topic Rotavirus Vaccines Aged Out No longer eligible based on patient's age to complete this topic Insurance [facility] [address] [place] [address] [facility] Care Teams Psychometrician Relationship Specialty Start Date End Date Tan Maza MD [address] [place] [address] PCP - General 12/18/22
--- OUTSIDE RECORDS SUMMARY | 2025-05-25 08:02 | XMS_ITS | Encounter Summary ---
Author Organization [facility] Address [address] [place] [address] Phone Care Team Providers Care Harvest Supervisor Name Role Phone Tan Maza MD Primary Care Provider [phone] Encounter Details Date Type Department Care Team (Late st Contact Info) Description 09/25/2021 Orders Only [facility] [address] [place] [place] [address] Conversion, Onbase Social History Tobacco Use Types Packs/Day Years Used Date Smoking Tobacco: Never Assessed Comments Unknown Sex and Gender Information Value Date Recorded Sex Assigned at Female 02/29/2024 5:42 PM EDT Legal Sex Female 12:44 AM EST Gender Identity Female 02/29/2024 5:42 PM EDT Sexual Orientation Not on file documented as of this encounter Plan of Treatment Upcoming Encounters Date Type Department Care Team (Late st Contact Info) Description 12/28/2025 9:10 AM EDT Office Visit [place] [id number] [facility] [address] [place] [address] Sukh Anderson DO [address] [facility] [address] [place] [address] Scheduled Orders Name Type Priority Associated Diagnoses Orde r Schedule OUTSIDE LAB SCAN Lab Ordered: 09/25/2021 documented as of this encounter Visit Diagnoses Not on filedocumented in this encounter Care Teams Harvest Supervisor Relationship Specialty Start Date End Date Tan Maza MD [address] [facility] [place] [address] PCP - General 12/18/22 documented as of this encounter
--- OUTSIDE RECORDS SUMMARY | 2025-05-25 08:02 | XMS_ITS | Clinical Summary ---
Author Organization [facility] Address [id number] [place] [address] Care Team Providers Care Brick Wheeler Name Role Phone Unavailable Primary Care Provider Unavailabl e Social History Tobacco Use Types Packs/Day Years Used Date Smoking Tobacco: Never Assessed Childcare Answer Date Recorded Childcare Unknown 03/30/2019 Employment Answer Date Recorded Employment Unknown 03/30/2019 Comments Unknown Sex and Gender Information Value Date Recorded Sex Assigned at Not on file Legal Sex Female 11:56 AM EDT Gender Identity Not on file Sexual Orientation Not on file Plan of Treatment Upcoming Encounters Date Type Department Care Team (Late st Contact Info) Description 06/01/2025 2:30 PM EDT Office Visit [facility] [place] [address] [place] [address] Tanya Baires, COLLAR PADDER BLINDSTITCH-GENERAL PASSENGER AGENT [address] [address] Health Maintenance Due Date Last Done Comments Depression Screening 1985 Tobacco Screening 1985 Adult BMI Screening 1991 DTaP,Tdap and Td Vaccines (1 - Tdap) 1992 Pap Smear 1994 Zoster (Shingles) Vaccine (1 of 2) 2023 Influenza Vaccine 06/19/2025 Medical Devices Not on file
--- OUTSIDE RECORDS SUMMARY | 2025-05-25 08:20 | XMS_ITS | CCD ---
Author Organization [facility] Care Team Providers Care Press Department Manager Name Role Phone Unavailable Unavailable Rocío Maza [...] Unavailable HOY ., DR ALFORD Admitting Unavailable ANJEL Mcdaniel, DR ALFORD Consulting Unavailable ANJEL ., DR ALFORD Admitting Unavailable ANJEL ., DR ALFORD Attending Unavailable ANJEL ., DR ALFORD Primary Care Unavailable Rocío Maza MD Primary Care Provider FRITZ VILCHIS Attending Unavailable ROCÍO MAZA Primary Care Unavailable Medications Current Medications Medication Drug Class(es) Dates Sig (Normalized) Sig (Original) aspirin 81 mg delayed release oral tablet (20 sources) Platelet Aggregation Inhibitor, Nonsteroidal Anti-inflammatory Drug Start: 01-25-2024 End: 01-24-2025 take 1 tablet by mouth once daily aspirin 81 mg EC tablet Indications: History of RI (myocardial infarction) , History of PTCA Take 1 tablet (81 mg) by mouth once daily. 90 tablet 3 01/25/2024 01/24/2025 Active Start: 09-03-2021 take 1 tablet by too th once daily Aspirin Low Dose 81 MG Oral Tablet Delayed Release Take 1 tablet daily Quantity: 90 Refills: 3 Ordered: 28-Jan-2023 Tiffany hSelby MD Start : 07-Nov-2021 Active 12 hr [...] SL tablet Indications: Coronary artery disease involving [place] coronary artery of [place] heart without angina pectoris Place 1 tablet [...] [Coronary atherosclerosis of unspecified type of vessel, [place] or graft] Onset: 4 01-04-2025 Chronic Deficiency and other anemia (1 source) Anemia, unspecified; Translations: [ANEMIA UNSPECIFIED] Onset: 3 Episodic Diabetes mellitus without complication (1 source) Type 2 diabetes mellitus without complications; Translations: [TYPE 2 DM WITHOUT COMPLICATIONS] Onset: 3 Chronic Disorders of lipid metabolism (18 sources) Hyperlipidemia; Translations: [Other and unspecified hyperlipidemia] Onset: 2 01-04-2025 Chronic E Codes: Adverse effects of medical drugs (2 sources) Adverse effect of carbonic-anhydrase inhibitors, benzothiadiazides and other diuretics, initial encounter; Translations: [Adverse effect of other drugs, medicaments and biological substances, initial encounter] Onset: 3 Episodic Essential hypertension (18 sources) Hypertensive disorder; Translations: [Unspecified essential hypertension] Onset: 3 01-04-2025 Chronic Fluid and electrolyte disorders (4 sources) Hypokalemia; Translations: [HYPOKALEMIA] Onset: 3 Episodic Malaise and fatigue (1 source) Other fatigue; Translations: [OTHER FATIGUE] Onset: 3 Episodic Nutritional deficiencies (1 source) Vitamin D deficiency, unspecified; Translations: [VITAMIN D DEFICIENCY UNSPECIFIED] Onset: 2 Chronic Other aftercare (1 source) target trimmer (current) use of aspirin; Translations: [USP CURRENT USE OF ASPIRIN] Onset: 3 Episodic Other aftercare (1 source) Other nursing home (current) drug therapy; Translations: [OTH USP CURRENT DRUG THERAPY] Onset: 3 Episodic Other aftercare (1 source) target trimmer (current) use of oral hypoglycemic drugs; Translations: [USP USE ORAL HYPOGLYCEMIC DX] Onset: 3 Episodic [...] (BMI) 38.0-38.9, adult] Onset: 5 01-04-2025 Chronic Other nutritional; endocrine; and metabolic disorders (2 sources) Body mass index (BMI) 38.0-38.9, adult; Translations: [Body mass index (BMI) 38.0-38.9, adult] Onset: 5 Chronic Residual codes; unclassified (4 sources) Pain, unspecified; Translations: [PAIN UNSPECIFIED] Onset: 3 Episodic Substance-related disorders (11 sources) Smokes tobacco daily; Translations: [Tobacco use [...] 02-23-2023 Magnesium [Mass/Vol] 2.2 mg/dL Normal 1.8-2.4 [facility] Comment on above: Performed By: #### M G, CMP #### [facility] [address] [address] [address] Alysa Martinez PROF 14(COMP METB)on 023 Albumin [Mass/Vol] 3.2 g/dL Critically low 3.4-5.0 Th e [facility] Comment on above: Performed By: #### M G, CMP #### [facility] [address] [address] [address] Alyas Martinez Albumin/Globulin [Mass ratio] 0.8 {ratio} Normal [facility] Comment on above: Performed By: #### M G, CMP #### [facility] [address] [address] [address] Alysa Martinez ALP [Catalytic activity/Vol] 74 U/L Normal 46-116 [facility] Comment on above: Performed By: #### M G, CMP #### [facility] [address] [address] [address] Alysa Martinez ALT [Catalytic activity/Vol] 43 U/L Normal 14-59 [facility] Comment on above: Performed By: #### M G, CMP #### [facility] [address] [place] [address] Dr. Alysa Martinez Anion gap [Moles/Vol] 10.9 mmol/L Normal [facility] Comment on above: Performed By: #### M G, CMP #### [facility] [address] [place] [address] Dr. Alysa Martinez AST [Catalytic activity/Vol] 22 U/L Normal 15-37 [facility] Comment on above: Performed By: #### M G, CMP #### [facility] [address] [place] [address] Dr. Alysa Martinez Bilirubin [Mass/Vol] 0.3 mg/dL Normal 0.2-1.0 [facility] Comment on above: Performed By: #### M G, CMP #### [facility] [address] [address] [address] Alysa Martinez Calcium [Mass/Vol] 8.6 mg/dL Normal 8.5-10.1 [facility] Comment on above: Performed By: #### M G, CMP #### [facility] [address] [address] [address] Alysa Martinez Chloride [Moles/Vol] 102 mmol/L Normal 98-107 [facility] Comment on above: Performed By: #### M G, CMP #### [facility] [address] [address] [address] Alysa Martinez CO2 [Moles/Vol] 30.0 mmol/L Normal 21.0-32.0 [facility] Comment on above: Performed By: #### M G, CMP #### [facility] [address] [address] [address] Alysa Martinez Creatinine [Mass/Vol] 0.89 mg/dL Normal 0.55-1.02 [facility] Comment on above: Performed By: #### M G, CMP #### [facility] [address] [address] [address] Alysa Martinez EGFR-AF KYRGYZ >60 Normal >=60 [facility] Comment on above: Performed By: #### M G, CMP #### [facility] [address] [place] [address] Dr. Alysa Martinez EGFR-NON AF KYRGYZ >60 Normal >=60 [facility] Comment on above: Performed By: #### M G, CMP #### [facility] [address] [place] [address] Dr. Alysa Martinez Globulin (S) [Mass/Vol] 4.0 g/dL Normal [facility] Comment on above: Performed By: #### M G, CMP #### [facility] [address] [address] [address] Alysa Martinez Glucose [Mass/Vol] 144 mg/dL Critically high 74-106 [facility] Comment on above: Performed By: #### M G, CMP #### [facility] [address] [place] [address] Dr. Alysa Martinez Potassium [Moles/Vol] 3.9 mmol/L Normal 3.5-5.1 [facility] Comment on above: Performed By: #### M G, CMP #### [facility] [address] [place] [address] Dr. Alysa Martinez Protein [Mass/Vol] 7.2 g/dL Normal 6.4-8.2 [facility] Comment on above: Performed By: #### M G, CMP #### [facility] [address] [place] [address] Dr. Aylsa Martinez Sodium [Moles/Vol] 139 mmol/L Normal 136-145 [facility] Comment on above: Performed By: #### M G, CMP #### [facility] [address] [place] [address] Dr. Alysa Martinez Urea nitrogen [Mass/Vol] 14.0 mg/dL Normal 7.0-18.0 [facility] Comment on above: Performed By: #### M G, CMP #### [facility] [address] [place] [address] Dr. Alysa Martinez Urea nitrogen/Creatinine [Mass ratio] 15.7 mg/mg Normal [facility] Comment on above: Performed By: #### M G, CMP #### [facility] [address] [place] [address] Dr. Alysa Martinez MAGNESIUMon 02-16-2023 Magnesium [Mass/Vol] 2.1 mg/dL Normal 1.8-2.4 [facility] Comment on above: Performed By: #### M G, CMP #### [facility] [address] [place] [address] Dr. Alysa Martinez PROF 14(COMP METB)on 023 Albumin [Mass/Vol] 3.3 g/dL Critically low 3.4-5.[address] [facility] Comment on above: Performed By: #### P HOS, BMP, MG #### [facility] [address] [place] [address] Dr. Alysa Martinez Albumin/Globulin [Mass ratio] 0.8 {ratio} Normal [facility] Comment on above: Performed By: #### P HOS, BMP, MG #### [facility] [address] [place] [address] Dr. Alysa Martinez ALP [Catalytic activity/Vol] 74 U/L Normal 46-116 [facility] Comment on above: Performed By: #### P HOS, BMP, MG #### [facility] [address] [place] [address] Dr. Alysa Martinez ALT [Catalytic activity/Vol] 46 U/L Normal 14-59 [facility] Comment on above: Performed By: #### P HOS, BMP, MG #### [facility] [address] [address] [address] Alysa Martinez Anion gap [Moles/Vol] 12.4 mmol/L Normal [facility] Comment on above: Performed By: #### P HOS, BMP, MG #### [facility] [address] [address] [address] Alysa Martinez AST [Catalytic activity/Vol] 21 U/L Normal 15-37 [facility] Comment on above: Performed By: #### P HOS, BMP, MG #### [facility] [address] [place] [address] Dr. Alysa Martinez Bilirubin [Mass/Vol] 0.3 mg/dL Normal 0.2-1.0 [facility] Comment on above: Performed By: #### P HOS, BMP, MG #### [facility] [address] [place] [address] Dr. Alysa Martinez Calcium [Mass/Vol] 9.2 mg/dL Normal 8.5-10.1 [facility] Comment on above: Performed By: #### P HOS, BMP, MG #### [facility] [address] [place] [address] Dr. Alysa Martinez Chloride [Moles/Vol] 100 mmol/L Normal 98-107 [facility] Comment on above: Performed By: #### P HOS, BMP, MG #### [facility] [address] [place] [address] Dr. Alysa Martinez CO2 [Moles/Vol] 30.9 mmol/L Normal 21.0-32.0 [facility] Comment on above: Performed By: #### P HOS, BMP, MG #### [facility] [address] [place] [address] Dr. Alysa Martinez Creatinine [Mass/Vol] 0.98 mg/dL Normal 0.55-1.02 [facility] Comment on above: Performed By: #### P HOS, BMP, MG #### [facility] [address] [place] [address] Dr. Alysa Martinez EGFR-AF KYRGYZ >60 Normal >=60 [facility] Comment on above: Performed By: #### P HOS, BMP, MG #### [facility] [address] [place] [address] Dr. Alysa Martinez EGFR-NON AF KYRGYZ 60 mL/min/1.73m2 Normal >=60 [facility] Comment on above: Performed By: #### P HOS, BMP, MG #### [facility] [address] [address] [address] Alysa Martinez Globulin (S) [Mass/Vol] 3.9 g/dL Normal [facility] Comment on above: Performed By: #### P HOS, BMP, MG #### [facility] [address] [place] [address] Dr. Alysa Martinez Glucose [Mass/Vol] 106 mg/dL Normal 74-106 [facility] Comment on above: Performed By: #### P HOS, BMP, MG #### [facility] [address] [place] [address] Dr. Alysa Martinez Potassium [Moles/Vol] 4.3 mmol/L Normal 3.5-5.1 [facility] Comment on above: Performed By: #### P HOS, BMP, MG #### [facility] [address] [place] [address] Dr. Alysa Martinez Protein [Mass/Vol] 7.2 g/dL Normal 6.4-8.2 [facility] Comment on above: Performed By: #### P HOS, BMP, MG #### [facility] [address] [place] [address] Dr. Alysa Martinez Sodium [Moles/Vol] 139 mmol/L Normal 136-145 [facility] Comment on above: Performed By: #### P HOS, BMP, MG #### [facility] [address] [place] [address] Dr. Alysa Martinez Urea nitrogen [Mass/Vol] 15.0 mg/dL Normal 7.0-18.0 [facility] Comment on above: Performed By: #### P HOS, BMP, MG #### [facility] [address] [place] [address] Dr. Alysa Martinez Urea nitrogen/Creatinine [Mass ratio] 15.3 mg/mg Normal [facility] Comment on above: Performed By: #### P HOS, BMP, MG #### [facility] [address] [place] [address] Dr. Alysa Martinez MAGNESIUMon 02-02-2023 Magnesium [Mass/Vol] 1.5 mg/dL Critically low 1.8-2.4 [facility] Comment on above: Performed By: #### R F #### [facility] [address] [place] [address] Dr. Alysa Martinez PROF 14(COMP METB)on 023 Albumin [Mass/Vol] 3.4 g/dL Normal 3.4-5.0 [facility] Comment on above: Performed By: #### R F #### [facility] [address] [place] [address] Dr. Alysa Martinez Albumin/Globulin [Mass ratio] 0.8 {ratio} Normal [facility] Comment on above: Performed By: #### R F #### [facility] [address] [place] [address] Dr. Alysa Martinez ALP [Catalytic activity/Vol] 77 U/L Normal 46-116 [facility] Comment on above: Performed By: #### R F #### [facility] [address] [place] [address] Dr. Alysa Martinez ALT [Catalytic activity/Vol] 37 U/L Normal 14-59 [facility] Comment on above: Performed By: #### R F #### [facility] [address] [place] [address] Dr. Alysa Martinez Anion gap [Moles/Vol] 12.5 mmol/L Normal [facility] Comment on above: Performed By: #### R F #### [facility] [address] [place] [address] Dr. Alysa Martinez AST [Catalytic activity/Vol] 19 U/L Normal 15-37 [facility] Comment on above: Performed By: #### R F #### [facility] [address] [address] [address] Alysa Martinez Bilirubin [Mass/Vol] 0.3 mg/dL Normal 0.2-1.0 [facility] Comment on above: Performed By: #### R F #### [facility] [address] [address] [address] Alysa Martinez Calcium [Mass/Vol] 9.5 mg/dL Normal 8.5-10.1 [facility] Comment on above: Performed By: #### R F #### [facility] [address] [address] [address] Alysa Martinez Chloride [Moles/Vol] 100 mmol/L Normal 98-107 [facility] Comment on above: Performed By: #### R F #### [facility] [address] [address] [address] Alysa Martinez CO2 [Moles/Vol] 26.8 mmol/L Normal 21.0-32.0 [facility] Comment on above: Performed By: #### R F #### [facility] [address] [address] [address] Alysa Martinez Creatinine [Mass/Vol] 1.15 mg/dL Critically high 0.55-1.02 [facility] Comment on above: Performed By: #### R F #### [facility] [address] [place] [address] Dr. Alysa Martinez EGFR-AF KYRGYZ >60 Normal >=60 [facility] Comment on above: Performed By: #### R F #### [facility] [address] [address] [address] Alysa Martinez EGFR-NON AF KYRGYZ 50 mL/min/1.73m2 Critically low >=60 [facility] Comment on above: Performed By: #### R F #### [facility] [address] [place] [address] Dr. Alysa Martinez Globulin (S) [Mass/Vol] 4.1 g/dL Normal [facility] Comment on above: Performed By: #### R F #### [facility] [address] [address] [address] Alysa Martinez Glucose [Mass/Vol] 128 mg/dL Critically high 74-106 [facility] Comment on above: Performed By: #### R F #### [facility] [address] [address] [address] Alysa Martinez Potassium [Moles/Vol] 4.3 mmol/L Normal 3.5-5.1 [facility] Comment on above: Performed By: #### R F #### [facility] [address] [address] [address] Alysa Martinez Protein [Mass/Vol] 7.5 g/dL Normal 6.4-8.2 [facility] Comment on above: Performed By: #### R F #### [facility] [address] [place] [address] Dr. Alysa Martinez Sodium [Moles/Vol] 135 mmol/L Critically low 136-145 [facility] Comment on above: Performed By: #### R F #### [facility] [address] [place] [address] Dr. Alysa Martinez Urea nitrogen [Mass/Vol] 26.0 mg/dL Critically high 7.0-18.0 [facility] Comment on above: Performed By: #### R F #### [facility] [address] [place] [address] Dr. Alysa Martinez Urea nitrogen/Creatinine [Mass ratio] 22.6 mg/mg Normal [facility] Comment on above: Performed By: #### R F #### [facility] [address] [address] [address] Alysa Martinez MAGNESIUMon 01-23-2023 Magnesium [Mass/Vol] 2.6 mg/dL Critically high 1.8-2.4 [facility] Comment on above: Performed By: #### M G, CMP #### [facility] [address] [place] [address] Dr. Alysa Martinez PROF 14(COMP METB)on 023 Albumin [Mass/Vol] 3.6 g/dL Normal 3.4-5.0 [facility] Comment on above: Performed By: #### M G, CMP #### [facility] [address] [address] [address] Alysa Martinez Albumin/Globulin [Mass ratio] 0.9 {ratio} Normal [facility] Comment on above: Performed By: #### M G, CMP #### [facility] [address] [address] [address] Alysa Martinez ALP [Catalytic activity/Vol] 79 U/L Normal 46-116 [facility] Comment on above: Performed By: #### M G, CMP #### [facility] [address] [address] [address] Alysa Martinez ALT [Catalytic activity/Vol] 35 U/L Normal 14-59 [facility] Comment on above: Performed By: #### M G, CMP #### [facility] [address] [address] [address] Alysa Martinez Anion gap [Moles/Vol] 13.4 mmol/L Normal [facility] Comment on above: Performed By: #### M G, CMP #### [facility] [address] [address] [address] Alysa Martinez AST [Catalytic activity/Vol] 18 U/L Normal 15-37 [facility] Comment on above: Performed By: #### M G, CMP #### [facility] [address] [address] [address] Alysa Martinez Bilirubin [Mass/Vol] 0.2 mg/dL Normal 0.2-1.0 [facility] Comment on above: Performed By: #### M G, CMP #### [facility] [address] [address] [address] Alysa Martinez Calcium [Mass/Vol] 8.9 mg/dL Normal 8.5-10.1 [facility] Comment on above: Performed By: #### M G, CMP #### [facility] [address] [address] [address] Alysa Martinez Chloride [Moles/Vol] 98 mmol/L Normal 98-107 [facility] Comment on above: Performed By: #### M G, CMP #### [facility] [address] [address] [address] Alysa Martinez CO2 [Moles/Vol] 27.6 mmol/L Normal 21.0-32.0 [facility] Comment on above: Performed By: #### M G, CMP #### [facility] [address] [address] [address] Alysa Martinez Creatinine [Mass/Vol] 0.86 mg/dL Normal 0.55-1.02 [facility] Comment on above: Performed By: #### M G, CMP #### [facility] [address] [address] [address] Alysa Martinez EGFR-AF KYRGYZ >60 Normal >=60 [facility] Comment on above: Performed By: #### M G, CMP #### [facility] [address] [place] [address] Dr. Alysa Martinez EGFR-NON AF KYRGYZ >60 Normal >=60 [facility] Comment on above: Performed By: #### M G, CMP #### [facility] [address] [place] [address] Dr. Alysa Martinez Globulin (S) [Mass/Vol] 4.0 g/dL Normal [facility] Comment on above: Performed By: #### M G, CMP #### [facility] [address] [place] [address] Dr. Alysa Martinez Glucose [Mass/Vol] 112 mg/dL Critically high 74-106 [facility] Comment on above: Performed By: #### M G, CMP #### [facility] [address] [place] [address] Dr. Alysa Martinez Potassium [Moles/Vol] 5.0 mmol/L Normal 3.5-5.1 [facility] Comment on above: Performed By: #### M G, CMP #### [facility] [address] [place] [address] Dr. Alysa Martinez Protein [Mass/Vol] 7.6 g/dL Normal 6.4-8.2 [facility] Comment on above: Performed By: #### M G, CMP #### [facility] [address] [place] [address] Dr. Alysa Martinez Sodium [Moles/Vol] 134 mmol/L Critically low 136-145 [facility] Comment on above: Performed By: #### M G, CMP #### [facility] [address] [place] [address] Dr. Alysa Martinez Urea nitrogen [Mass/Vol] 17.0 mg/dL Normal 7.0-18.0 [facility] Comment on above: Performed By: #### M G, CMP #### [facility] [address] [place] [address] Dr. Alysa Martinez Urea nitrogen/Creatinine [Mass ratio] 19.8 mg/mg Normal [facility] Comment on above: Performed By: #### M G, CMP #### [facility] [address] [place] [address] Dr. Alysa Martinez MAGNESIUMon 01-16-2023 Magnesium [Mass/Vol] 1.7 mg/dL Critically low 1.8-2.4 [facility] Comment on above: Performed By: #### R F #### [facility] [address] [place] [address] Dr. Alysa Martinez PROF 14(COMP METB)on 023 Albumin [Mass/Vol] 3.1 g/dL Critically low 3.4-5.0 [facility] Comment on above: Performed By: #### R F #### [facility] [address] [place] [address] Dr. Alysa Martinez Albumin/Globulin [Mass ratio] 0.9 {ratio} Normal [facility] Comment on above: Performed By: #### R F #### [facility] [address] [place] [address] Dr. Alysa Martinez ALP [Catalytic activity/Vol] 69 U/L Normal 46-116 [facility] Comment on above: Performed By: #### R F #### [facility] [address] [place] [address] Dr. Alysa Martinez ALT [Catalytic activity/Vol] 46 U/L Normal 14-59 [facility] Comment on above: Performed By: #### R F #### [facility] [address] [address] [address] Alysa Martinez Anion gap [Moles/Vol] 10.0 mmol/L Normal [facility] Comment on above: Performed By: #### R F #### [facility] [address] [address] [address] Alysa Martinez AST [Catalytic activity/Vol] 29 U/L Normal 15-37 [facility] Comment on above: Performed By: #### R F #### [facility] [address] [address] [address] Alysa Martinez Bilirubin [Mass/Vol] 0.3 mg/dL Normal 0.2-1.0 [facility] Comment on above: Performed By: #### R F #### [facility] [address] [place] [address] Dr. Alysa Martinez Calcium [Mass/Vol] 8.9 mg/dL Normal 8.5-10.1 [facility] Comment on above: Performed By: #### R F #### [facility] [address] [address] [address] Alysa Martinez Chloride [Moles/Vol] 103 mmol/L Normal 98-107 [facility] Comment on above: Performed By: #### R F #### [facility] [address] [address] [address] Alysa Martinez CO2 [Moles/Vol] 32.5 mmol/L Critically high 21.0-32.0 [facility] Comment on above: Performed By: #### R F #### [facility] [address] [address] [address] Alysa Martinez Creatinine [Mass/Vol] 0.85 mg/dL Normal 0.55-1.02 [facility] Comment on above: Performed By: #### R F #### [facility] [address] [address] [address] Alysa Martinez EGFR-AF KYRGYZ >60 Normal >=60 [facility] Comment on above: Performed By: #### R F #### [facility] [address] [place] [address] Dr. Alysa Martinez EGFR-NON AF KYRGYZ >60 Normal >=60 [facility] Comment on above: Performed By: #### R F #### [facility] [address] [place] [address] Dr. Alysa Martinez Globulin (S) [Mass/Vol] 3.5 g/dL Normal [facility] Comment on above: Performed By: #### R F #### [facility] [address] [address] [address] Alysa Martinez Glucose [Mass/Vol] 97 mg/dL Normal 74-106 [facility] Comment on above: Performed By: #### R F #### [facility] [address] [place] [address] Dr. Alysa Martinez Potassium [Moles/Vol] 3.5 mmol/L Normal 3.5-5.1 [facility] Comment on above: Performed By: #### R F #### [facility] [address] [place] [address] Dr. Alysa Martinez Protein [Mass/Vol] 6.6 g/dL Normal 6.4-8.2 [facility] Comment on above: Performed By: #### R F #### [facility] [address] [place] [address] Dr. Alysa Martinez Sodium [Moles/Vol] 142 mmol/L Normal 136-145 [facility] Comment on above: Performed By: #### R F #### [facility] [address] [place] [address] Dr. Alysa Martinez Urea nitrogen [Mass/Vol] 12.0 mg/dL Normal 7.0-18.0 [facility] Comment on above: Performed By: #### R F #### [facility] [address] [place] [address] Dr. Alysa Martinez Urea nitrogen/Creatinine [Mass ratio] 14.1 mg/mg Normal [facility] Comment on above: Performed By: #### R F #### [facility] [address] [place] [address] Dr. Alysa Martinez CHLORIDE URINE RANDOMon 03-2 8-2023 Chloride, Urine <20 Normal Not Estab. [facility] Comment on above: Performed By: #### P HOS, BMP, MG #### [facility] [address] [place] [address] Dr. Alysa Martinez MAGNESIUMon 01-13-2023 Magnesium [Mass/Vol] 2.1 mg/dL Normal 1.8-2.4 [facility] Comment on above: Performed By: #### R F #### [facility] [address] [place] [address] Dr. Alysa Martinez PHOSPHORUSon 01-13-2023 Phosphate [Mass/Vol] 3.7 mg/dL Normal 2.6-4.7 [facility] Comment on above: Performed By: #### R F #### [facility] [address] [place] [address] Dr. Alysa Martinez PROF CHEM 8 (BAS METB)on Anion gap [Moles/Vol] 12.3 mmol/L Normal [facility] Comment on above: Performed By: #### R F #### [facility] [address] [place] [address] Dr. Alysa Martinez Calcium [Mass/Vol] 7.6 mg/dL Critically low 8.5-10.[address] [facility] Comment on above: Performed By: #### R F #### [facility] [address] [place] [address] Dr. Alysa Martinez Chloride [Moles/Vol] 106 mmol/L Normal 98-107 [facility] Comment on above: Performed By: #### R F #### [facility] [address] [place] [address] Dr. Alysa Martinez CO2 [Moles/Vol] 30.7 mmol/L Normal 21.0-32.0 [facility] Comment on above: Performed By: #### R F #### [facility] [address] [place] [address] Dr. Alysa Martinez Creatinine [Mass/Vol] 0.67 mg/dL Normal 0.55-1.02 [facility] Comment on above: Performed By: #### R F #### [facility] [address] [place] [address] Dr. Alysa Martinez EGFR-AF KYRGYZ >60 Normal >=60 [facility] Comment on above: Performed By: #### R F #### [facility] [address] [address] [address] Alysa Martinez EGFR-NON AF KYRGYZ >60 Normal >=60 [facility] Comment on above: Performed By: #### R F #### [facility] [address] [address] [address] Alysa Martinez Glucose [Mass/Vol] 125 mg/dL Critically high 74-106 [facility] Comment on above: Performed By: #### R F #### [facility] [address] [place] [address] Dr. Alysa Martinez Potassium [Moles/Vol] 3.0 mmol/L Critically low 3.5-5.1 [facility] Comment on above: Performed By: #### R F #### [facility] [address] [place] [address] Dr. Alysa Martinez Sodium [Moles/Vol] 146 mmol/L Critically high 136-145 [facility] Comment on above: Performed By: #### R F #### [facility] [address] [place] [address] Dr. Alysa Martinez Urea nitrogen [Mass/Vol] 9.0 mg/dL Normal 7.0-18.0 [facility] Comment on above: Performed By: #### R F #### [facility] [address] [place] [address] Dr. Alysa Martinez Urea nitrogen/Creatinine [Mass ratio] 13.4 mg/mg Normal [facility] Comment on above: Performed By: #### R F #### [facility] [address] [place] [address] Dr. Alysa Martinez Anion gap [Moles/Vol] 9.9 mmol/L Normal [facility] Comment on above: Performed By: #### B MP #### [facility] [address] [place] [address] Dr. Alysa Martinez Calcium [Mass/Vol] 7.5 mg/dL Critically low 8.5-10.[address] [facility] Comment on above: Performed By: #### B MP #### [facility] [address] [address] [address] Alysa Martinez Chloride [Moles/Vol] 103 mmol/L Normal 98-107 [facility] Comment on above: Performed By: #### B MP #### [facility] [address] [address] [address] Alysa Martinez CO2 [Moles/Vol] 31.7 mmol/L Normal 21.0-32.0 [facility] Comment on above: Performed By: #### B MP #### [facility] [address] [address] [address] Alysa Martinez Creatinine [Mass/Vol] 0.75 mg/dL Normal 0.55-1.02 [facility] Comment on above: Performed By: #### B MP #### [facility] [address] [address] [address] Alysa Martinez EGFR-AF KYRGYZ >60 Normal >=60 [facility] Comment on above: Performed By: #### B MP #### [facility] [address] [address] [address] Alysa Martinez EGFR-NON AF KYRGYZ >60 Normal >=60 [facility] Comment on above: Performed By: #### B MP #### [facility] [address] [address] [address] Alysa Martinez Glucose [Mass/Vol] 189 mg/dL Critically high 74-106 [facility] Comment on above: Performed By: #### B MP #### [facility] [address] [address] [address] Alysa Martinez Potassium [Moles/Vol] 2.6 mmol/L Critically low 3.5-5.1 [facility] Comment on above: Performed By: #### B MP #### [facility] [address] [address] [address] Alysa Martinez Sodium [Moles/Vol] 143 mmol/L Normal 136-145 [facility] Comment on above: Performed By: #### B MP #### [facility] [address] [address] [address] Alysa Martinez Urea nitrogen [Mass/Vol] 8.0 mg/dL Normal 7.0-18.0 [facility] Comment on above: Performed By: #### B MP #### [facility] [address] [address] [address] Alysa Martinez Urea nitrogen/Creatinine [Mass ratio] 10.7 mg/mg Normal [facility] Comment on above: Performed By: #### B MP #### [facility] [address] [address] [address] Alysa Martinez CAROLINE by IFAon 01-12-2023 Antinuclear Antibodies, IFA Negative Normal [facility] Comment on above: Result Comment: Nega tive <1:80 Borderline 1:80 Positive >1:80 ICAP nomenclature: AC-0 For more information about Hep-2 cell patterns use ANApatterns.org, the official website for the International Consensus on Antinuclear Antibody (CAROLINE) Patterns (ICAP). Performed By: #### P HOS, BMP, MG #### [facility] [address] [place] [address] Dr. Alysa Martinez MAGNESIUMon 01-12-2023 Magnesium [Mass/Vol] 2.4 mg/dL Normal 1.8-2.4 [facility] Comment on above: Performed By: #### P HOS, BMP, MG #### [facility] [address] [place] [address] Dr. Alysa Martinez PHOSPHORUSon 01-12-2023 Phosphate [Mass/Vol] 3.2 mg/dL Normal 2.6-4.7 [facility] Comment on above: Performed By: #### P HOS, BMP, MG #### [facility] [address] [place] [address] Dr. Alysa Martinez PROF CHEM 8 (BAS METB)on Anion gap [Moles/Vol] 9.9 mmol/L Normal [facility] Comment on above: Performed By: #### P HOS, BMP, MG #### [facility] [address] [address] [address] Alysa Martinez Calcium [Mass/Vol] 7.7 mg/dL Critically low 8.5-10.1 [facility] Comment on above: Performed By: #### P HOS, BMP, MG #### [facility] [address] [address] [address] Alysa Martinez Chloride [Moles/Vol] 100 mmol/L Normal 98-107 [facility] Comment on above: Performed By: #### P HOS, BMP, MG #### [facility] [address] [address] [address] Alysa Martinez CO2 [Moles/Vol] 33.4 mmol/L Critically high 21.0-32.0 [facility] Comment on above: Performed By: #### P HOS, BMP, MG #### [facility] [address] [place] [address] Dr. Alysa Martinez Creatinine [Mass/Vol] 0.69 mg/dL Normal 0.55-1.02 [facility] Comment on above: Performed By: #### P HOS, BMP, MG #### [facility] [address] [address] [address] Alysa Martinez EGFR-AF KYRGYZ >60 Normal >=60 [facility] Comment on above: Performed By: #### P HOS, BMP, MG #### [facility] [address] [place] [address] Dr. Alysa Martinez EGFR-NON AF KYRGYZ >60 Normal >=60 [facility] Comment on above: Performed By: #### P HOS, BMP, MG #### [facility] [address] [place] [address] Dr. Alysa Martinez Glucose [Mass/Vol] 140 mg/dL Critically high 74-106 [facility] Comment on above: Performed By: #### P HOS, BMP, MG #### [facility] [address] [place] [address] Dr. Alysa Martinez Potassium [Moles/Vol] 2.3 mmol/L Critically low 3.5-5.1 [facility] Comment on above: Performed By: #### P HOS, BMP, MG #### [facility] [address] [address] [address] Alysa Martinez Sodium [Moles/Vol] 142 mmol/L Normal 136-145 [facility] Comment on above: Performed By: #### P HOS, BMP, MG #### [facility] [address] [address] [address] Alysa Martinez Urea nitrogen [Mass/Vol] 8.0 mg/dL Normal 7.0-18.0 [facility] Comment on above: Performed By: #### P HOS, BMP, MG #### [facility] [address] [address] [address] Alysa Martinez Urea nitrogen/Creatinine [Mass ratio] 11.6 mg/mg Normal [facility] Comment on above: Performed By: #### P HOS, BMP, MG #### [facility] [address] [address] [address] Alysa Martinez Anion gap [Moles/Vol] 8.0 mmol/L Normal [facility] Comment on above: Performed By: #### P HOS, BMP, MG #### [facility] [address] [address] [address] Alysa Martinez Calcium [Mass/Vol] 7.8 mg/dL Critically low 8.5-10.1 [facility] Comment on above: Performed By: #### P HOS, BMP, MG #### [facility] [address] [address] [address] Alysa Martinez Chloride [Moles/Vol] 100 mmol/L Normal 98-107 [facility] Comment on above: Performed By: #### P HOS, BMP, MG #### [facility] [address] [address] [address] Alysa Martinez CO2 [Moles/Vol] 37.5 mmol/L Critically high 21.0-32.0 [facility] Comment on above: Performed By: #### P HOS, BMP, MG #### [facility] [address] [address] [address] Alysa Martinez Creatinine [Mass/Vol] 0.67 mg/dL Normal 0.55-1.02 [facility] Comment on above: Performed By: #### P HOS, BMP, MG #### [facility] [address] [place] [address] Dr. Alysa Martinez EGFR-AF KYRGYZ >60 Normal >=60 [facility] Comment on above: Performed By: #### P HOS, BMP, MG #### [facility] [address] [address] [address] Alysa Martinez EGFR-NON AF KYRGYZ >60 Normal >=60 [facility] Comment on above: Performed By: #### P HOS, BMP, MG #### [facility] [address] [place] [address] Dr. Alysa Martinez Glucose [Mass/Vol] 130 mg/dL Critically high 74-106 [facility] Comment on above: Performed By: #### P HOS, BMP, MG #### [facility] [address] [place] [address] Dr. Alysa Martinez Potassium [Moles/Vol] 1.5 mmol/L Critically low 3.5-5.1 [facility] Comment on above: Performed By: #### P HOS, BMP, MG #### [facility] [address] [place] [address] Dr. Alysa Martinez Sodium [Moles/Vol] 144 mmol/L Normal 136-145 [facility] Comment on above: Performed By: #### P HOS, BMP, MG #### [facility] [address] [place] [address] Dr. Alysa Martinez Urea nitrogen [Mass/Vol] 9.0 mg/dL Normal 7.0-18.0 [facility] Comment on above: Performed By: #### P HOS, BMP, MG #### [facility] [address] [place] [address] Dr. Alysa Martinez Urea nitrogen/Creatinine [Mass ratio] 13.4 mg/mg Normal [facility] Comment on above: Performed By: #### P HOS, BMP, MG #### [facility] [address] [place] [address] Dr. Alysa Martinez US KIDNEYS BLADDERon 023 [...] KATE ALVARENGA Date: 2023-01-12 10:59 Normal [facility] ANTISTREPTOLYSIN O AB (ASO)o n 01-11-2023 Antistreptolysin O Ab 81.7 IU/mL Normal 0.0-200.0 [facility] Comment on above: Performed By: #### P HOS, BMP, MG #### [facility] [address] [address] [address] Alysa Martinez CREATININE URINEon 3 URINE CREAT 27.01 mg/dL Normal 20.00-300.00 [facility] Comment on above: Performed By: #### B MP #### [facility] [address] [address] [address] Alysa Martinez MAGNESIUMon 01-11-2023 Magnesium [Mass/Vol] 1.7 mg/dL Critically low 1.8-2.4 [facility] Comment on above: Performed By: #### P HOS, BMP, MG #### [facility] [address] [address] [address] Alysa Martinez Magnesium [Mass/Vol] 2.0 mg/dL Normal 1.8-2.4 [facility] Comment on above: Performed By: #### M G, CMP #### [facility] [address] [place] [address] Dr. Alysa Martinez Magnesium [Mass/Vol] 1.6 mg/dL Critically low 1.8-2.4 [facility] Comment on above: Performed By: #### P HOS, BMP, MG #### [facility] [address] [place] [address] Dr. Alysa Martinez PH URINEon 01-11-2023 pH (U) 6.0 [pH] Normal 5-9 [facility] Comment on above: Performed By: #### R F #### [facility] [address] [place] [address] Dr. Alysa Martinez PHOSPHORUSon 01-11-2023 Phosphate [Mass/Vol] 2.4 mg/dL Critically low 2.6-4.7 [facility] Comment on above: Performed By: #### P HOS, BMP, MG #### [facility] [address] [place] [address] Dr. Alysa Martinez POTASSIUMon 01-11-2023 Potassium [Moles/Vol] 1.6 mmol/L Critically low 3.5-5.1 [facility] Comment on above: Performed By: #### M G, CMP #### [facility] [address] [place] [address] Dr. Alysa Martinez POTASSIUM URINEon 01-11-2023 UR POTASSIUM 11.2 mmol/L Normal [facility] Comment on above: Performed By: #### P HOS, BMP, MG #### [facility] [address] [place] [address] Dr. Alysa Martinez PROF CHEM 8 (BAS METB)on Anion gap [Moles/Vol] 8.9 mmol/L Normal [facility] Comment on above: Performed By: #### P HOS, BMP, MG #### [facility] [address] [place] [address] Dr. Alysa Martinez Calcium [Mass/Vol] 7.4 mg/dL Critically low 8.5-10.[address] [facility] Comment on above: Performed By: #### P HOS, BMP, MG #### [facility] [address] [address] [address] Alysa Martinez Chloride [Moles/Vol] 95 mmol/L Critically low 98-107 [facility] Comment on above: Performed By: #### P HOS, BMP, MG #### [facility] [address] [address] [address] Alysa Martinez CO2 [Moles/Vol] 36.6 mmol/L Critically high 21.0-32.0 [facility] Comment on above: Performed By: #### P HOS, BMP, MG #### [facility] [address] [address] [address] Alysa Martinez Creatinine [Mass/Vol] 0.96 mg/dL Normal 0.55-1.02 [facility] Comment on above: Performed By: #### P HOS, BMP, MG #### [facility] [address] [address] [address] Alysa Martinez EGFR-AF KYRGYZ >60 Normal >=60 [facility] Comment on above: Performed By: #### P HOS, BMP, MG #### [facility] [address] [place] [address] Dr. Alysa Martinez EGFR-NON AF KYRGYZ >60 Normal >=60 [facility] Comment on above: Performed By: #### P HOS, BMP, MG #### [facility] [address] [address] [address] Alysa Martinez Glucose [Mass/Vol] 215 mg/dL Critically high 74-106 [facility] Comment on above: Performed By: #### P HOS, BMP, MG #### [facility] [address] [address] [address] Alysa Martinez Potassium [Moles/Vol] 1.5 mmol/L Critically low 3.5-5.1 [facility] Comment on above: Performed By: #### P HOS, BMP, MG #### [facility] [address] [address] [address] Alysa Martinez Sodium [Moles/Vol] 138 mmol/L Normal 136-145 [facility] Comment on above: Performed By: #### P HOS, BMP, MG #### [facility] [address] [place] [address] Dr. Alysa Martinez Urea nitrogen [Mass/Vol] 12.0 mg/dL Normal 7.0-18.0 [facility] Comment on above: Performed By: #### P HOS, BMP, MG #### [facility] [address] [place] [address] Dr. Alysa Martinez Urea nitrogen/Creatinine [Mass ratio] 12.5 mg/mg Normal [facility] Comment on above: Performed By: #### P HOS, BMP, MG #### [facility] [address] [place] [address] Dr. Alysa Martinez RHEUMATOID FACTORon 01-12-20 RA Latex Turbid. 10.7 IU/mL Normal <14.0 [facility] Comment on above: Performed By: #### R F #### [facility] [address] [place] [address] Dr. Alysa Martinez SODIUM RANDOM URINEon 2022 Sodium (U) [Moles/Vol] 16 mmol/L Critically low 30-90 [facility] Comment on above: Performed By: #### P HOS, BMP, MG #### [facility] [address] [place] [address] Dr. Alysa Martinez UA RANDOMon 01-11-2023 Bilirubin Ql (U) Negative Normal NEGATIVE [facility] Comment on above: Performed By: #### P HOS, BMP, MG #### [facility] [address] [place] [address] Dr. Alysa Martinez Clarity (U) CLEAR Normal CLEAR [facility] Comment on above: Performed By: #### P HOS, BMP, MG #### [facility] [address] [place] [address] Dr. Alysa Martinez Color (U) LT. YELLOW Normal YELLOW [facility] Comment on above: Performed By: #### P HOS, BMP, MG #### [facility] [address] [place] [address] Dr. Alysa Martinez Glucose Ql (U) Negative Normal NEGATIVE [facility] Comment on above: Performed By: #### P HOS, BMP, MG #### [facility] [address] [place] [address] Dr. Alysa Martinez Hemoglobin Ql (U) TRACE-INTACT Abnormal NEGATIVE [facility] Comment on above: Performed By: #### P HOS, BMP, MG #### [facility] [address] [address] [address] Alysa Martinez Ketones Ql (U) Negative Normal NEGATIVE [facility] Comment on above: Performed By: #### P HOS, BMP, MG #### [facility] [address] [address] [address] Alysa Martinez LEUKOCYTES Negative Normal NEGATIVE [facility] Comment on above: Performed By: #### P HOS, BMP, MG #### [facility] [facility] [address] [place] [address] Dr. Alysa Martinez Nitrite Ql (U) Negative Normal NEGATIVE [facility] Comment on above: Performed By: #### P HOS, BMP, MG #### [facility] [address] [place] [address] Dr. Alysa Martinez pH (U) 7.5 [pH] Normal 5-9 [facility] Comment on above: Performed By: #### P HOS, BMP, MG #### [facility] [address] [place] [address] Dr. Alysa Martinez SPEC GRAVITY <=1.005 Abnormal 1.005-<=1.025 [facility] Comment on above: Performed By: #### P HOS, BMP, MG #### [facility] [address] [place] [address] Dr. Alysa Martinez UA PROTEIN Negative Normal NEGATIVE/ TRACE [facility] Comment on above: Performed By: #### P HOS, BMP, MG #### [facility] [address] [place] [address] Dr. Alysa Martinez Urobilinogen Qn (U) 0.2 {Bridget'U}/dL Normal 0.2 - 1. 0 [facility] Comment on above: Performed By: #### P HOS, BMP, MG #### [facility] [address] [place] [address] Dr. Alysa Martinez CALCIUM URINEon 01-10-2023 UR CALCIUM 1.1 mg/dL Critically low 5.1-21.0 [facility] Comment on above: Performed By: #### B MP #### [facility] [address] [place] [address] Dr. Alysa Martinez CBC AUTO DIFFon 01-10-2023 BASO # 0.0 103/ul Normal 0.0-0.1 [facility] Comment on above: Performed By: #### P HOS, BMP, MG #### [facility] [address] [place] [address] Dr. Alysa Martinez Basophils/100 WBC (Bld) 0.3 % Normal 0.2-2.0 [facility] Comment on above: Performed By: #### P HOS, BMP, MG #### [facility] [address] [place] [address] Dr. Alysa Martinez EO # 0.3 103/ul Normal 0.0-0.7 [facility] Comment on above: Performed By: #### P HOS, BMP, MG #### [facility] [address] [place] [address] Dr. Alysa Martinez Eosinophils/100 WBC (Bld) 3.6 % Normal 0.9-7.0 [facility] Comment on above: Performed By: #### P HOS, BMP, MG #### [facility] [address] [place] [address] Dr. Alysa Martinez Erythrocyte distribution width (RBC) [Ratio] 18.1 % Critically high 11.0-15.0 [facility] Comment on above: Performed By: #### P HOS, BMP, MG #### [facility] [address] [place] [address] Dr. Alysa Martinez Hematocrit (Bld) [Volume fraction] 41.5 % Normal 36.0-48.0 [facility] Comment on above: Performed By: #### P HOS, BMP, MG #### [facility] [address] [address] [address] Alysa Martinez Hemoglobin (Bld) [Mass/Vol] 13.0 g/dL Normal 12.0-16.0 [facility] Comment on above: Performed By: #### P HOS, BMP, MG #### [facility] [address] [place] [address] Dr. Alysa Martinez IG # 0.02 10e3/ul Normal 0.00-0.03 [facility] Comment on above: Performed By: #### P HOS, BMP, MG #### [facility] [address] [place] [address] Dr. Alysa Martinez IG % 0.3 % Normal 0.0-0.5 [facility] Comment on above: Performed By: #### P HOS, BMP, MG #### [facility] [address] [place] [address] Dr. Alysa Martinez LYMPH # 1.3 103/ul Normal 1.2-3.8 [facility] Comment on above: Performed By: #### P HOS, BMP, MG #### [facility] [address] [place] [address] Dr. Alysa Martinez Lymphocytes/100 WBC (Bld) 19.4 % Critically low 20.5-60.0 [facility] Comment on above: Performed By: #### P HOS, BMP, MG #### [facility] [address] [place] [address] Dr. Alysa Martinez MANUAL DIFF REQ NO Normal [facility] Comment on above: Performed By: #### P HOS, BMP, MG #### [facility] [address] [place] [address] Dr. Alysa Martinez MCH (RBC) [Entitic mass] 25.9 pg Critically low 26.7-34.0 [facility] Comment on above: Performed By: #### P HOS, BMP, MG #### [facility] [address] [place] [address] Dr. Alysa Martinez MCHC (RBC) [Mass/Vol] 31.3 g/dL Normal 29.9-35.2 [facility] Comment on above: Performed By: #### P HOS, BMP, MG #### [facility] [address] [place] [address] Dr. Alysa Martinez MCV (RBC) [Entitic vol] 82.8 fL Normal 81.0-99.0 [facility] Comment on above: Performed By: #### P HOS, BMP, MG #### [facility] [address] [place] [address] Dr. Alysa Martinez MONO # 0.4 103/ul Normal 0.3-0.8 [facility] Comment on above: Performed By: #### P HOS, BMP, MG #### [facility] [address] [place] [address] Dr. Alysa Martinez Monocytes/100 WBC (Bld) 5.9 % Normal 1.7-12.0 [facility] Comment on above: Performed By: #### P HOS, BMP, MG #### [facility] [address] [place] [address] Dr. Alysa Martinez NEUT # 4.9 103/ul Normal 1.4-6.5 [facility] Comment on above: Performed By: #### P HOS, BMP, MG #### [facility] [address] [place] [address] Dr. Alysa Martinez Neutrophils/100 WBC (Bld) 70.5 % Normal 43.0-75.0 [facility] Comment on above: Performed By: #### P HOS, BMP, MG #### [facility] [address] [place] [address] Dr. Alysa Martinez Platelet mean volume (Bld) [Entitic vol] 9.4 fL Critically low 9.5-13.5 [facility] Comment on above: Performed By: #### P HOS, BMP, MG #### [facility] [address] [place] [address] Dr. Alysa Martinez PLT 158 103/ul Normal 150-450 [facility] Comment on above: Performed By: #### P HOS, BMP, MG #### [facility] [address] [place] [address] Dr. Alysa Martinez RBC 5.01 106/ul Normal 4.20-5.40 [facility] Comment on above: Performed By: #### P HOS, BMP, MG #### [facility] [address] [address] [address] Alysa Martinez WBC 6.9 103/ul Normal 4.0-11.0 [facility] Comment on above: Performed By: #### P HOS, BMP, MG #### [facility] [address] [address] [address] Alysa Martinez CRPon 01-10-2023 CRP 12.0 mg/dL Critically high <=1.0 [facility] Comment on above: Performed By: #### P HOS, BMP, MG #### [facility] [address] [address] [address] Alysa Martinez Covid-19 PCR ([facility])on 12-18 SARS-CoV-2 (COVID-19) RNA MARITA+probe Ql (Unsp spec) Not detected Normal NOT DETECTED [facility] Comment on above: Result Comment: When diagnostic [...] for this test is supported by the [place] Bailiff of Health and Human Service's declaration that [...] used). Performed By: #### R F #### [facility] [address] [place] [address] Dr. Alysa Martinez IRONon 01-10-2023 Iron [Mass/Vol] 55.0 ug/dL Normal 50.0-170.0 [facility] Comment on above: Performed By: #### M G, CMP #### [facility] [address] [place] [address] Dr. Alysa Martinez MAGNESIUMon 01-10-2023 Magnesium [Mass/Vol] 1.0 mg/dL Critically low 1.8-2.4 [facility] Comment on above: Performed By: #### M G, CMP #### [facility] [address] [place] [address] Dr. Alysa Martinez Magnesium [Mass/Vol] 0.5 mg/dL Critically low 1.8-2.4 [facility] Comment on above: Performed By: #### B MP #### [facility] [address] [place] [address] Dr. Alysa Martinez PHOSPHORUSon 01-10-2023 Phosphate [Mass/Vol] 2.5 mg/dL Critically low 2.6-4.7 [facility] Comment on above: Performed By: #### M Alvin, CMP #### [facility] [address] [place] [address] Dr. Alysa Martinez POTASSIUMon 01-10-2023 Potassium [Moles/Vol] 1.2 mmol/L Critically low 3.5-5.1 [facility] Comment on above: Performed By: #### B MP #### [facility] [address] [place] [address] Dr. Alysa Martinez PROF 14(COMP METB)on 023 Albumin [Mass/Vol] 3.4 g/dL Normal 3.4-5.0 [facility] Comment on above: Performed By: #### P HOS, BMP, MG #### [facility] [address] [place] [address] Dr. Alysa Martinez Albumin/Globulin [Mass ratio] 1.2 {ratio} Normal [facility] Comment on above: Performed By: #### P HOS, BMP, MG #### [facility] [address] [place] [address] Dr. Alysa Martinez ALP [Catalytic activity/Vol] 70 U/L Normal 46-116 [facility] Comment on above: Performed By: #### P HOS, BMP, MG #### [facility] [address] [address] [address] Alysa Martinez ALT [Catalytic activity/Vol] 36 U/L Normal 14-59 [facility] Comment on above: Performed By: #### P HOS, BMP, MG #### [facility] [address] [address] [address] Alysa Martinez Anion gap [Moles/Vol] 11.1 mmol/L Normal [facility] Comment on above: Performed By: #### P HOS, BMP, MG #### [facility] [address] [address] [address] Alysa Martinez AST [Catalytic activity/Vol] 79 U/L Critically high 15-37 [facility] Comment on above: Performed By: #### P HOS, BMP, MG #### [facility] [address] [address] [address] Alysa Martinez Bilirubin [Mass/Vol] 0.6 mg/dL Normal 0.2-1.0 [facility] Comment on above: Performed By: #### P HOS, BMP, MG #### [facility] [address] [address] [address] Alysa Martinez Calcium [Mass/Vol] 7.8 mg/dL Critically low 8.5-10.[address] [facility] Comment on above: Performed By: #### P HOS, BMP, MG #### [facility] [address] [address] [address] Alysa Martinez Chloride [Moles/Vol] 90 mmol/L Critically low 98-107 [facility] Comment on above: Performed By: #### P HOS, BMP, MG #### [facility] [address] [address] [address] Alysa Martinez CO2 [Moles/Vol] 38.1 mmol/L Critically high 21.0-32.0 [facility] Comment on above: Performed By: #### P HOS, BMP, MG #### [facility] [address] [address] [address] Alysa Martinez Creatinine [Mass/Vol] 0.92 mg/dL Normal 0.55-1.02 [facility] Comment on above: Performed By: #### P HOS, BMP, MG #### [facility] [address] [address] [address] Alysa Martinez EGFR-AF KYRGYZ >60 Normal >=60 [facility] Comment on above: Performed By: #### P HOS, BMP, MG #### [facility] [address] [address] [address] Alysa Martinez EGFR-NON AF KYRGYZ >60 Normal >=60 [facility] Comment on above: Performed By: #### P HOS, BMP, MG #### [facility] [address] [address] [address] Alysa Martinez Globulin (S) [Mass/Vol] 2.9 g/dL Normal [facility] Comment on above: Performed By: #### P HOS, BMP, MG #### [facility] [address] [address] [address] Alysa Martinez Glucose [Mass/Vol] 136 mg/dL Critically high 74-106 [facility] Comment on above: Performed By: #### P HOS, BMP, MG #### [facility] [address] [address] [address] Alysa Martinez Potassium [Moles/Vol] 1.2 mmol/L Critically low 3.5-5.1 [facility] Comment on above: Performed By: #### P HOS, BMP, MG #### [facility] [address] [address] [address] Alysa Martinez Protein [Mass/Vol] 6.3 g/dL Critically low 6.4-8.[address] [facility] Comment on above: Performed By: #### P HOS, BMP, MG #### [facility] [address] [address] [address] Alysa Martinez Sodium [Moles/Vol] 138 mmol/L Normal 136-145 [facility] Comment on above: Performed By: #### P HOS, BMP, MG #### [facility] [address] [address] [address] Alysa Martinez Urea nitrogen [Mass/Vol] 12.0 mg/dL Normal 7.0-18.0 [facility] Comment on above: Performed By: #### P HOS, BMP, MG #### [facility] [address] [place] [address] Dr. Alysa Martinez Urea nitrogen/Creatinine [Mass ratio] 13.0 mg/mg Normal [facility] Comment on above: Performed By: #### P HOS, BMP, MG #### [facility] [address] [place] [address] Dr. Alysa Martinez PROF CHEM 8 (BAS METB)on Anion gap [Moles/Vol] 5.6 mmol/L Normal [facility] Comment on above: Performed By: #### M G, CMP #### [facility] [address] [place] [address] Dr. Alysa Martinez Calcium [Mass/Vol] 7.2 mg/dL Critically low 8.5-10.1 [facility] Comment on above: Performed By: #### M G, CMP #### [facility] [address] [place] [address] Dr. Alysa Martinez Chloride [Moles/Vol] 94 mmol/L Critically low 98-107 [facility] Comment on above: Performed By: #### M G, CMP #### [facility] [address] [place] [address] Dr. Alysa Martinez CO2 [Moles/Vol] 38.8 mmol/L Critically high 21.0-32.0 [facility] Comment on above: Performed By: #### M G, CMP #### [facility] [address] [place] [address] Dr. Alysa Martinez Creatinine [Mass/Vol] 0.90 mg/dL Normal 0.55-1.02 [facility] Comment on above: Performed By: #### M G, CMP #### [facility] [address] [place] [address] Dr. Alysa Martinez EGFR-AF KYRGYZ >60 Normal >=60 [facility] Comment on above: Performed By: #### M G, CMP #### [facility] [address] [place], [place] [id number] Dr. Alysa Martinez EGFR-NON AF KYRGYZ >60 Normal >=60 [facility] Comment on above: Performed By: #### M G, CMP #### [facility] [address] [place] [address] Dr. Alysa Martinez Glucose [Mass/Vol] 154 mg/dL Critically high 74-106 [facility] Comment on above: Performed By: #### M G, CMP #### [facility] [address] [place] [address] Dr. Alysa Martinez Potassium [Moles/Vol] 1.4 mmol/L Critically low 3.5-5.1 [facility] Comment on above: Performed By: #### M G, CMP #### [facility] [address] [place] [address] Dr. Alysa Martinez Sodium [Moles/Vol] 137 mmol/L Normal 136-145 [facility] Comment on above: Performed By: #### M G, CMP #### [facility] [address] [place] [address] Dr. Alysa Martinez Urea nitrogen [Mass/Vol] 11.0 mg/dL Normal 7.0-18.0 [facility] Comment on above: Performed By: #### M G, CMP #### [facility] [address] [place] [address] Dr. Alysa Martinez Urea nitrogen/Creatinine [Mass ratio] 12.2 mg/mg Normal [facility] Comment on above: Performed By: #### M G, CMP #### [facility] [address] [place] [address] Dr. Alysa Martinez URIC ACID SERUMon 01-10-2023 Urate [Mass/Vol] 3.2 mg/dL Normal 2.6-6.0 [facility] Comment on above: Performed By: #### P HOS, BMP, MG #### [facility] [address] [place] [address] Dr. Alysa Martinez VITAMIN D 25 OHon 01-10-2023 VIT D 25-OH 10.0 ng/mL Normal [facility] Comment on above: Performed By: #### M G, CMP #### [facility] [address] [place], [place] [address] Dr. Alysa Martinez VIT D RANGES SEE BELOW Normal [facility] Comment on above: Result Comment: <20 ng/mL Vit D deficient 20 - <30 ng/mL Vit D insufficient 30 - 100 ng/mL Vit D sufficient >100 ng/mL Potential Toxicity Performed By: #### M G, CMP #### [facility] [address] [place], [place] [address] Dr. Alysa Martinez Office Visit (Cardiology)on 12-18-2022 [...] we can help. You may also call [phone] for free resources and assistance.; Status:Complete - [...] Recorded: 18Dec2022 10:05AM Heart Rate80, R Radial Hapybcrt750, LUE, Sitting Asbkzokvw21, LUE, Sitting Height5 ft 8 in Eaehlt349 lb 2 oz BMI Nkvcfkggjc47.17 kg/m2 BSA Calculated2.12 Tobacco Usea) Yes Patient [...] 023 Adult depression screening assessment No [facility] 250 DO Work Phone: Fall risk assessment a) No falls within the last year [facility] 250 DO Work Phone: Tobacco use status CP a) Yes [facility] 250 DO Work Phone: Tobacco Screening. Yes [facility] 250 DO Work Phone: CBC AUTO DIFFon 09-18-2022 BASO # 0.0 103/ul Normal 0.0-0.1 [facility] Comment on above: Performed By: #### M G, CMP #### [facility] [address] [address] [address] Alysa Martinez Basophils/100 WBC (Bld) 0.3 % Normal 0.2-2.0 [facility] Comment on above: Performed By: #### M G, CMP #### [facility] [address] [place] [address] Dr. Alysa Martinez EO # 0.2 103/ul Normal 0.0-0.7 [facility] Comment on above: Performed By: #### M G, CMP #### [facility] [address] [place] [address] Dr. Alysa Martinez Eosinophils/100 WBC (Bld) 2.2 % Normal 0.9-7.0 [facility] Comment on above: Performed By: #### M G, CMP #### [facility] [address] [place] [address] Dr. Alysa Martinez Erythrocyte distribution width (RBC) [Ratio] 18.7 % Critically high 11.0-15.0 [facility] Comment on above: Performed By: #### M G, CMP #### [facility] [address] [place] [address] Dr. Alysa Martinez Hematocrit (Bld) [Volume fraction] 44.0 % Normal 36.0-48.0 [facility] Comment on above: Performed By: #### M G, CMP #### [facility] [address] [place] [address] Dr. Alysa Martinez Hemoglobin (Bld) [Mass/Vol] 13.3 g/dL Normal 12.0-16.0 [facility] Comment on above: Performed By: #### M G, CMP #### [facility] [address] [place] [address] Dr. Alysa Martinez IG # 0.03 10e3/ul Normal 0.00-0.03 [facility] Comment on above: Performed By: #### M G, CMP #### [facility] [address] [place] [address] Dr. Alysa Martinez IG % 0.3 % Normal 0.0-0.5 [facility] Comment on above: Performed By: #### M G, CMP #### [facility] [address] [place] [address] Dr. Alysa Martinez LYMPH # 1.5 103/ul Normal 1.2-3.8 [facility] Comment on above: Performed By: #### M G, CMP #### [facility] [address] [place] [address] Dr. Alysa Martinez Lymphocytes/100 WBC (Bld) 17.4 % Critically low 20.5-60.0 [facility] Comment on above: Performed By: #### M G, CMP #### [facility] [address] [place] [address] Dr. Alysa Martinez MANUAL DIFF REQ NO Normal [facility] Comment on above: Performed By: #### M G, CMP #### [facility] [address] [place] [address] Dr. Alysa Martinez MCH (RBC) [Entitic mass] 23.5 pg Critically low 26.7-34.0 [facility] Comment on above: Performed By: #### M G, CMP #### [facility] [address] [place] [address] Dr. Alysa Martinez MCHC (RBC) [Mass/Vol] 30.2 g/dL Normal 29.9-35.2 [facility] Comment on above: Performed By: #### M G, CMP #### [facility] [address] [place] [address] Dr. Alysa Martinez MCV (RBC) [Entitic vol] 77.9 fL Critically low 81.0-99.0 [facility] Comment on above: Performed By: #### M G, CMP #### [facility] [address] [place] [address] Dr. Alysa Martinez MONO # 0.6 103/ul Normal 0.3-0.8 [facility] Comment on above: Performed By: #### M G, CMP #### [facility] [address] [place] [address] Dr. Alysa Martinez Monocytes/100 WBC (Bld) 6.7 % Normal 1.7-12.0 [facility] Comment on above: Performed By: #### M G, CMP #### [facility] [address] [place] [address] Dr. Alysa Martinez NEUT # 6.5 103/ul Normal 1.4-6.5 [facility] Comment on above: Performed By: #### M G, CMP #### [facility] [address] [address] [address] Alysa Martinez Neutrophils/100 WBC (Bld) 73.1 % Normal 43.0-75.0 [facility] Comment on above: Performed By: #### M G, CMP #### [facility] [address] [address] [address] Alysa Martinez Platelet mean volume (Bld) [Entitic vol] 8.8 fL Critically low 9.5-13.5 [facility] Comment on above: Performed By: #### M G, CMP #### [facility] [address] [place] [address] Dr. Alysa Martinez PLT 222 103/ul Normal 150-450 [facility] Comment on above: Performed By: #### M G, CMP #### [facility] [address] [place] [address] Dr. Alysa Martinez RBC 5.65 106/ul Critically high 4.20-5.40 [facility] Comment on above: Performed By: #### M G, CMP #### [facility] [address] [place] [address] Dr. Alysa Martinez WBC 8.8 103/ul Normal 4.0-11.0 [facility] Comment on above: Performed By: #### M G, CMP #### [facility] [address] [place] [address] Dr. Alysa Martinez FREE T3on 09-18-2022 FREE T3 2.16 pg/mlL Critically low 2.18-3.98 [facility] Comment on above: Performed By: #### B MP #### [facility] [address] [place] [address] Dr. Alysa Martinez GLYCOHEMOGLOBIN A1Con 2021 ADA RECOMMENDATION SEE BELOW Normal [facility] Comment on above: Result Comment: ADA RECOMMENDED LIMIT 4.0 - 6.0 ADA THERAPEUTIC TARGET < 7.0 ACTION SUGGESTED > 7.0 Performed By: #### R F #### [facility] [address] [address] [address] Alysa Martinez Glucose [Mass/Vol] 223 mg/dL Normal [facility] Comment on above: Performed By: #### R F #### [facility] [address] [address] [address] Alysa Martinez HbA1c (Bld) [Mass fraction] 9.4 % Critically high 4.5-6.2 [facility] Comment on above: Performed By: #### R F #### [facility] [address] [address] [address] Alysa Martinez LIPID PROFILEon 09-18-2022 CHOL-HDL RATIO NORM SEE BELOW Normal [facility] Comment on above: Result Comment: 3.3 - 4.4 LOW RISK 4.4 - 7.1 AVERAGE RISK 7.1 - 11.0 MODERATE RISK >11.0 HIGH RISK Performed By: #### B MP #### [facility] [address] [address] [address] Alysa Martinez Cholesterol [Mass/Vol] 123 mg/dL Normal <=200 [facility] Comment on above: Performed By: #### B MP #### [facility] [address] [address] [address] Alysa Martinez Cholesterol in HDL [Mass/Vol] 31 mg/dL Critically low 40-60 [facility] Comment on above: Performed By: #### B MP #### [facility] [address] [address] [address] Alysa Martinez Cholesterol in LDL [Mass/Vol] 53.0 mg/dL Normal [facility] Comment on above: Performed By: #### B MP #### [facility] [address] [address] [address] Alysa Martinez Cholesterol.total/Cho lesterol in HDL [Mass ratio] 4.0 {ratio} Normal [facility] Comment on above: Performed By: #### B MP #### [facility] [address] [address] [address] Alysa Martinez HDL NORMAL > or = 60 mg/dl - LO W CARDIOVASCULAR RISK <40 mg/dl - HIGH CARDIOVASCULAR RISK Normal [facility] Comment on above: Performed By: #### B MP #### [facility] [address] [address] [address] Alysa Martinez LDL CALC NORMAL SEE BELOW Normal [facility] Comment on above: Result Comment: <100 mg/dl OPTIMAL 100 - 129 mg/dl NEAR OR ABOVE OPTIMAL 130 - 159 mg/dl BORDERLINE HIGH 160 - 189 mg/dl HIGH >190 mg/dl VERY HIGH Performed By: #### B MP #### [facility] [address] [address] [address] Alysa Martinez Triglyceride [Mass/Vol] 195 mg/dL Critically high <=150 [facility] Comment on above: Performed By: #### B MP #### [facility] [address] [address] [address] Alysa Martinez VLDL CALC 39.0 mg/dL Normal [facility] Comment on above: Performed By: #### B MP #### [facility] [address] [address] [address] Alysa Martinez PROF 14(COMP METB)on 022 Albumin [Mass/Vol] 3.3 g/dL Critically low 3.4-5.0 [facility] Comment on above: Performed By: #### B MP #### [facility] [address] [place] [address] Dr. Alysa Martinez Albumin/Globulin [Mass ratio] 0.8 {ratio} Normal [facility] Comment on above: Performed By: #### B MP #### [facility] [address] [place] [address] Dr. Alysa Martinez ALP [Catalytic activity/Vol] 69 U/L Normal 46-116 [facility] Comment on above: Performed By: #### B MP #### [facility] [address] [place] [address] Dr. Alysa Martinez ALT [Catalytic activity/Vol] 20 U/L Normal 14-59 [facility] Comment on above: Performed By: #### B MP #### [facility] [address] [place] [address] Dr. Alysa Martinez Anion gap [Moles/Vol] 10.4 mmol/L Normal [facility] Comment on above: Performed By: #### B MP #### [facility] [address] [address] [address] Alysa Martinez AST [Catalytic activity/Vol] 11 U/L Critically low 15-37 [facility] Comment on above: Performed By: #### B MP #### [facility] [address] [address] [address] Alysa Martinez Bilirubin [Mass/Vol] 0.3 mg/dL Normal 0.2-1.0 [facility] Comment on above: Performed By: #### B MP #### [facility] [address] [address] [address] Alysa Martinez Calcium [Mass/Vol] 8.9 mg/dL Normal 8.5-10.1 [facility] Comment on above: Performed By: #### B MP #### [facility] [address] [address] [address] Alysa Martinez Chloride [Moles/Vol] 88 mmol/L Critically low 98-107 [facility] Comment on above: Performed By: #### B MP #### [facility] [address] [address] [address] Alysa Martinez CO2 [Moles/Vol] 33.7 mmol/L Critically high 21.0-32.0 [facility] Comment on above: Performed By: #### B MP #### [facility] [address] [address] [address] Alysa Martinez Creatinine [Mass/Vol] 0.78 mg/dL Normal 0.55-1.02 [facility] Comment on above: Performed By: #### B MP #### [facility] [address] [address] [address] Alysa Martinez EGFR-AF KYRGYZ >60 Normal >=60 [facility] Comment on above: Performed By: #### B MP #### [facility] [address] [address] [address] Alysa Martinez EGFR-NON AF KYRGYZ >60 Normal >=60 [facility] Comment on above: Performed By: #### B MP #### [facility] [address] [address] [address] Alysa Martinez Globulin (S) [Mass/Vol] 4.1 g/dL Normal [facility] Comment on above: Performed By: #### B MP #### [facility] [address] [address] [address] Alysa Martinez Glucose [Mass/Vol] 182 mg/dL Critically high 74-106 [facility] Comment on above: Performed By: #### B MP #### [facility] [address] [address] [address] Alysa Martinez Potassium [Moles/Vol] 4.1 mmol/L Normal 3.5-5.1 [facility] Comment on above: Performed By: #### B MP #### [facility] [address] [address] [address] Alysa Martinez Protein [Mass/Vol] 7.4 g/dL Normal 6.4-8.2 [facility] Comment on above: Performed By: #### B MP #### [facility] [address] [address] [address] Alysa Martinez Sodium [Moles/Vol] 128 mmol/L Critically low 136-145 [facility] Comment on above: Performed By: #### B MP #### [facility] [address] [address] [address] Alysa Martinez Urea nitrogen [Mass/Vol] 15.0 mg/dL Normal 7.0-18.0 [facility] Comment on above: Performed By: #### B MP #### [facility] [address] [address] [address] Alysa Martinez Urea nitrogen/Creatinine [Mass ratio] 19.2 mg/mg Normal [facility] Comment on above: Performed By: #### B MP #### [facility] [address] [place] [address] Dr. Alysa aMrtinez T4on 09-18-2022 T4 [Mass/Vol] 5.90 ug/dL Normal 4.80-13.90 [facility] Comment on above: Performed By: #### B MP #### [facility] [address] [address] [address] Alysa Martinez TSHon 09-18-2022 TSH 2.022 uIU/mL Normal 0.358-3.740 [facility] Comment on above: Performed By: #### B MP #### [facility] [address] [place] [address] Dr. Alysa Martinez VITAMIN D 25 OHon 09-18-2022 VIT D 25-OH 9.8 ng/mL Normal [facility] Comment on above: Performed By: #### P HOS, BMP, MG #### [facility] [address] [place] [address] Dr. Alysa Martinez VIT D RANGES SEE BELOW Normal [facility] Comment on above: Result Comment: <20 ng/mL Vit D deficient 20 - <30 ng/mL Vit D insufficient 30 - 100 ng/mL Vit D sufficient >100 ng/mL Potential Toxicity Performed By: #### P HOS, BMP, MG #### [facility] [address] [place] [address] Dr. Alysa Martinez [facility] SARS-CoV-2 (COVID-19) RNA MARITA+probe Ql (Unsp spec) Not detected Normal NOT DETECTED [facility] Comment on above: Result Comment: This test is not yet approved or cleared by the [place] FDA. When there are no FDA-approved or cleared tests available, and other criteria are met, FDA can make tests available under an emergency access mechanism called an Emergency Use Authorization (EUA). The EUA for this test is supported by the [place] Bailiff of Health and Human Service's (HHS's) declaration [...] SARS-CoV-2. Performed By: #### B MP #### [facility] [address] [place], [place] [id number] Dr. Alysa Martinez Covid-19 PCR ([facility]on 04-18 SARS-CoV-2 (COVID-19) RNA MARITA+probe Ql (Unsp spec) Not detected Normal NOT DETECTED [facility] Comment on above: Result Comment: When diagnostic [...] for this test is supported by the [place] of Health and Human Service's declaration that [...] By: #### P HOS, BMP, MG #### [facility] [address] [place] [address] [address] Alysa Martinez Physician Referralon 021 Physician Referral [id number]:127 Normal [facility] Physician Referralon 021 Physician Referral [id number]:127 Normal [facility] Vital Signs Date Time Vital Sign Value Performing Clinician Greer escoto 01-04-2025 07:59-0400 Body height 172.7 cm Fritz Vilchis APRN-PHOTOVOLTAIC INSTALLER Work Phone: [facility] 01-04-2025 07:59-0400 Body mass index (BMI) [Ratio] 38.01 kg/m2 Fritz Vilchis TOUR MANAGER-PHOTOVOLTAIC INSTALLER Work Phone: [facility] 01-04-2025 07:59-0400 Body weight 113.4 kg Fritz Vilchis TOUR MANAGER-PHOTOVOLTAIC INSTALLER Work Phone: [facility] 01-04-2025 07:59-0400 Diastolic blood pressure 62 mm[Hg] Fritz Vilchis TOUR MANAGER-PHOTOVOLTAIC INSTALLER Work Phone: [facility] 01-04-2025 07:59-0400 Heart rate 68 /min Fritz Vilchis TOUR MANAGER-PHOTOVOLTAIC INSTALLER Work Phone: [facility] 01-04-2025 07:59-0400 Systolic blood pressure 104 mm[Hg] Fritz Vilchis TOUR MANAGER-PHOTOVOLTAIC INSTALLER Work Phone: [facility] 12-18-2022 10:05-0500 Body height 172.72 cm Rocío Kika Hoy Work Phone: [facility] [address] DO Work Phone: 12-18-2022 10:05-0500 Body mass index (BMI) [Ratio] 33.17 kg/m2 Rocío Kika Hoy Work Phone: [facility] [address] DO Work Phone: 12-18-2022 10:05-0500 Body surface area Derived from formula 2.12 m2 Rocío M Hoy Work Phone: [facility] [address] DO Work Phone: 12-18-2022 10:05-0500 Body weight 98.94 kg Rocío M Hoy Work Phone: [facility] [address] DO Work Phone: 12-18-2022 10:05-0500 Diastolic blood pressure 74 mm[Hg] Rocío M Hoy Work Phone: [facility] [address] DO Work Phone: 12-18-2022 10:05-0500 Heart rate 80 /min Rocío Maza Work Phone: [facility] [address] DO Work Phone: 12-18-2022 10:05-0500 Systolic blood pressure 128 mm[Hg] Rocío Maza Work Phone: [facility] [address] DO Work Phone: Encounters Encounter Date Encounter Type Care Provider Facility Start: 01-04-2025 End: 01-04-2025 Office outpatient visit 15 minutes Fritz Guy Glover TOUR MANAGER-PHOTOVOLTAIC INSTALLER Work Phone: [facility] Comment on above: 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 Facili ty:H1 Start: 01-26-2023 Rx Renewal Rocío Maza Work Phone: [facility] DO Work Phone: Start: 01-23-2023 End: 02-15-[address] ROCÍO MAZA . Facility:[facility] Start: 01-16-2023 End: 01-17-[address] ROCÍO MAZA . Facility:[facility] Start: 01-12-2023 End: 01-13-2023 Evaluation and management of inpatient DR ROCÍO MAZA . Facility:[facility] Start: 01-10-2023 End: 01-11-2023 ambulatory DAYNA PICKARD Facility:[facility] Start: 12-26-2022 Rx Renewal Rocío Maza Work Phone: [facility] [address] DO Work Phone: Start: 12-18-2022 ambulatory Sukh Mcdaniel y: Start: 12-18-2022 Office outpatient vi sit 15 minutes Rocíomalgorzata Maza Work Phone: [facility] DO Work Phone: Start: 11-07-2022 Rx Renewal Tiffany Shelby MD Work Phone: [facility] [address] DO Work Phone: Start: 10-24-2022 Rx Renewal Tiffany Shelby MD Work Phone: [facility] DO Work Phone: Start: 10-09-2022 End: 10-10-[address] ROCÍO MAZA . Facility:[facility] Start: 09-20-2022 Encounter for genera l adult medical examination without abnormal findings DR ROCÍO MAZA . [facility] Start: 09-18-2022 End: 09-19-[address] ROCÍO MAZA . Facility:[facility] Start: 09-18-2022 End: 09-19-2022 Encounter for general adult medical examination without abnormal findings DR ROCÍO MAZA . Facility:[facility] Start: 09-03-2022 Rx Renewal Tiffany Shelby MD Work Phone: [facility] [address] DO Work Phone: Start: 08-29-2022 Rx Renewal Tiffany Shelby MD Work Phone: [facility] DO Work Phone: Start: 06-16-2022 End: 06-16-[address] ROCÍO MAZA . Facility:[facility] Start: 05-05-2022 End: 05-05-[address] ROCÍO MAZA . Facility:[facility] Start: 11-07-2021 Rx Renewal Sukh monzon DO Work Phone: [facility] DO Work Phone: Start: 09-03-2021 Rx Renewal Tiffany Shelby MD Work Phone: [facility] [address] [place] Work Phone: Procedures Date Procedure Procedure Detail Performing Clinician Start: 11-13-2023 History of percutane ous transluminal coronary angioplasty History of PTCA Fritz Vilchis TOUR MANAGER-PHOTOVOLTAIC INSTALLER Work Phone: Cardiac catheterization Will john Anderson DO Work Phone: Comment on above: X1; section Sukh brown DO Work Phone: Comment on above: X1; History of percutane ous transluminal coronary angioplasty History of PTCA Rocío Maza Work Phone: Ligation of fallopian tube W derick Anderson DO Work Phone: Plan of Treatment Date Care Activity Detail Author Start: 12-28-2025 End: 12-28-2025 Patient encounter procedure 12/28/2025 9:10 AM EDT Office Visit [facility] [address] [place] [address] Sukh Anderson, DO [address] [place] [address] [facility] Start: 01-04-2025 End: 01-04-2026 Alanine aminotransferase [Enzymatic activity/volume] in Serum or Plasma by With P-5'-P Alanine Aminotransferase Lab Routine Coronary artery disease involving y[place] coronary artery of [place] heart without angina pectoris Mixed hyperlipidemia Primary hypertension Expected: 01/04/2025 (Approximate), Expires: 01/04/2026 [facility] Work Phone: Comment on above: Expected: 01/04/2025 (Approximate), Expi res: 01/04/2026 Start: 01-04-2025 End: 01-04-2026 Aspartate aminotransferase [Enzymatic activity/volume] in Serum or Plasma by With P-5'-P Aspartate Aminotransferase Lab Routine Coronary artery disease involving [place] coronary artery of [place] heart without angina pectoris Mixed hyperlipidemia Primary hypertension Expected: 01/04/2025 (Approximate), Expires: 01/04/2026 [facility] Work Phone: Comment on above: Expected: 01/04/2025 (Approximate), Expi res: 01/04/2026 Start: 01-04-2025 End: 01-04-2026 Basic metabolic 2000 panel - Serum or Plasma Basic Metabolic Panel Lab Routine Coronary artery disease involving [place] coronary artery of [place] heart without angina pectoris Mixed hyperlipidemia Primary hypertension Expected: 01/04/2025 (Approximate), Expires: 01/04/[address] [facility] Service Area Work Phone: Comment on above: Expected: 01/04/2025 (Approximate), Expi res: 01/04/2026 Start: 01-04-2025 End: 01-04-2026 Lipid 1996 panel - Serum or Plasma Lipid Panel Lab Routine Coronary artery disease involving [place] coronary artery of [place] heart without angina pectoris Mixed hyperlipidemia Expected: 01/04/2025 (Approximate), Expires: 01/04/2026 [facility] Work Phone: Comment on above: Expected: 01/04/2025 (Approximate), Expi res: 01/04/2026 Start: 06-19-2024 COVID-19 Vaccine ( season) COVID-19 Vaccine ( season) [facility] Start: 06-19-2024 Influenza vaccination Influenza Vaccine (#1) [facility] Start: 12-23-2023 FUV, Provider: Sukh Anderson, Status: Pen, Time: 9:50 AM FUV, Provider: uSkh Anderson, Status: Pen, Time: 9:50 AM -[facility] DO Work Phone: Start: 2023 Zoster Vaccines (1 of 2) Zoster Vaccines (1 of 2) [facility] Start: 12-18-2022 FUV, Provider: Sukh Anderson, Status: Pen, Time: 9:40 AM FUV, Provider: Sukh Anderson, Status: Pen, Time: 9:40 AM -[facility] DO Work Phone: Start: 10-22-2021 FUV, Provider: Sukh Anderson, Status: Pen, Time: 9:15 AM FUV, Provider: Sukh Anderson, Status: Pen, Time: 9:15 AM -[facility] [address] [place] Work Phone: Start: 2013 Screening for malignant neoplasm of breast Mammogram [facility] Start: 1995 DTaP/Tdap/Td Vaccines (1 - Tdap) DTaP/Tdap/Td Vaccines (1 - Tdap) [facility] Start: 1994 Screening for malignant neoplasm of cervix [facility] Start: 1992 Hepatitis B Vaccines (1 of 3 - 19+ 3-dose series) Hepatitis B Vaccines (1 of 3 - 19+ 3-dose series) [facility] Start: 1992 Pneumococcal vaccination Pneumococcal Vaccine (1 of 2 - PCV) [facility] Start: 1991 Diabetes mellitus screening Diabetes Screening [facility] Start: 1991 Hepatitis C screening Hepatitis C Screening [facility] Start: 1974 MMR Vaccines (1 of 1 - Standard series) MMR Vaccines (1 of 1 - Standard series) [facility] Start: 1973 HIV screening HIV Screening [facility] Start: 1973 Lipid panel Lipid Panel [facility] Start: 1973 Screening for malignant neoplasm of colon [facility] Start: 1973 Yearly Adult Physical Yearly Adult Physical [facility] Immunizations Immunization Date Immunization Notes Care Provider Vlad cash 03-30-2021 Pfizer-BioNTech COVI D-19 Vacc 30 MCG/0.3ML Intramuscular Suspension Sukh Anderson DO Work Phone: [facility] [place] 250 DO Work Phone: 03-09-2021 Pfizer-BioNTech COVI D-19 Vacc 30 MCG/0.3ML Intramuscular Suspension Sukh Anderson [facility] Work Phone: Payers Date Payer Category Payer Wilber dorsey [facility] [id number] 2025 Unknown [id number] 1973 Unknown [id number] 356 1973 Unknown [id number]. 593 1973 Unknown [id number] [id number]. 593 1973 Unknown [id number] [id number]. 593 1973 Unknown [id number] [id number]. 593 1973 Unknown [id number] [id number]. 593 1973 Unknown [id number] [id number]. 593 1973 Unknown [id number] [id number]. 593 1973 Unknown [id number] [id number]. 593 1973 Unknown [id number] [id number]. 593 1973 Unknown [id number]. 1244 1959 Unknown [id number] Unknown [facility] Social History Date Type Detail Facility Start: 01-04-2025 Occasional alcohol use Occasional al cohol use [address] [address] DO Work Phone: Comment on above: A FEW SATUR; 4 BOTTLES DIET PEPSI ; 3/4 PPD; 1/2 PPD; Start: 01-04-2025 Tobacco smoking stat us NHIS Smokes tobacco daily [facility] History of tobacco use Cigarette Smoker [facility] Work Phone: Start: 01-04-2025 Tobacco use and exposure Former smokeless tobacco user [facility] Work Phone: Start: 01-04-2025 Alcoholic beverage intake Lifetime non-drinker (finding) [facility] Work Phone: Start: 01-04-2025 Tobacco use panel [facility] Work Phone: Start: 1975 Sex assigned at Female [facility] Start: 02-29-2024 Gender identity Identifies as female gender (finding) [facility] Work Phone: Start: 12-25-2024 End: 01-04-2025 Exposure to SARS-CoV-2 (event) Not sure [facility] Evaluation + Plan note 01-04-2025 Assessment & Plan Note - RASHAWN Mahmood - 01/04/2025 8:46 AM EDT Note Date & Type Note Facility 01-04-2025 Evaluation + Plan note Associated Problem(s): BMI 38.0-38.9,adult Reviewed the merits of healthy lifestyle choices on overall cardiovascular health. [facility] Work Phone: Evaluation + Plan note 01-04-2025 Assessment & Plan Note - RASHAWN Mahmood - 01/04/2025 8:46 AM EDT Note Date & Type Note Facility 01-04-2025 Evaluation + Plan note Associated Problem(s): Hypertension Optimal in office [facility] Work Phone: Evaluation + Plan note 01-04-2025 Assessment & Plan Note - RASHAWN Mahmood - 01/04/2025 8:46 AM EDT Note Date & Type Note Facility 01-04-2025 Evaluation + Plan note Associated Problem(s): HLD (hyperlipidemia) High intensity statin Due for labs [facility] Work Phone: Evaluation + Plan note 01-04-2025 [...] greater than 4 METS without recurrent symptoms. [facility] Work Phone: Note 01-04-2025 Assessment & Plan [...] to try Wellbutrin documented in this encounter [facility] Work Phone: Evaluation + Plan note 01-04-2025 Assessment & Plan Note - RASHAWN Mahmood - 01/04/2025 8:14 AM EDT Note Date & Type Note Facility 01-04-2025 Evaluation + Plan note Associated Problem(s): Current smoker 1 pack per day Since age of 16 Prior: Nausea with chantix, no benefit patches I want to quit Willing to try Wellbutrin [facility] Work Phone: History of Present illness Narrative [...] to steroid-induced diabetes. Smoker: She has a [id number] history of smoking. Intolerant to Chantix and [...] Nov 2019 NSTEMI Nov 30, 2019 mCX PCI/Otmeka 3/18mm Ostial/proximal LM spasm Mid LAD spasm [...] the office if new symptoms arise. Dr. Justin storm You need to stop smoking. Though it is not easy, more than half of all adults smokers have quit. We encourage you to write down all the reasons you should quit smoking and set a quit date for yourself. Ask us how we can help. You may also call 1-142-EFMN-NOW for free resources and assistance. Fritz Vilchis MSN, TOUR MANAGER-PHOTOVOLTAIC INSTALLER, PMHNP-[facility] [place], [place] Please excuse any errors in grammar or translation related to this dictation. Voice recognition software was utilized to prepare this document. documented in this encounter [facility] Work Phone: Instructions 01-04-2025 Patient Instructions Note [...] the office if new symptoms arise. Dr. Justin storm You need to stop smoking. Though it is not easy, more than half of all adults smokers have quit. We encourage you to write down all the reasons you should quit smoking and set a quit date for yourself. Ask us how we can help. You may also call 1-182-DEBK-NOW for free resources and assistance. documented in this encounter [facility] Work Phone: Clinical Note 10-10-2022 Note Date [...] MARY KATE ALVARENGA Date: 2022-10-10 11:06 [facility] Evaluation note Note Date & Type Note Facility Evaluation note Diagnosis Coronary artery disease involving y[place] coronary artery of [place] heart without angina pectoris- Primary Mixed hyperlipidemia Primary hypertension Unspecified essential hypertension BMI 38.0-38.9,adult Current smoker documented in this encounter [facility] Work Phone: Summary Purpose Family History No Family History [...] content) DATE CREATED AUTHOR 03/16/2021 Nikko Mendoza [facility] DATE CREATED AUTHOR AUTHOR'S ORGANIZ ATION 12/19/2022 [facility] DATE CREATED AUTHOR AUTHOR'S ORGANIZ ATION 12/20/2022 [facility] [employer] DATE CREATED AUTHOR AUTHOR'S ORGANIZ ATION 02/24/2023 [facility] DATE CREATED AUTHOR AUTHOR'S ORGANIZ ATION 01/12/2025 [facility] Reason for Visit (unrecogniz ed section and content) Reason Comments Follow-up Overdue, med refill Follow up for Coronary Artery Disease Care Teams (unrecognized sec tion and content) Press Department Manager Relationship Specialty Start Date End Date Rocío Maza MD [address] [place] [address] PCP - General 12/18/22 FOR RECORDS PERTAINING [...] BE BASED ON THE PRIMARY CLINICAL RECORDS. [facility] [employer] [facility]. provides no warranty or guarantee of the accuracy or completeness of information in this document.
[2025-05-25 09:07] LABS: Hematocrit 51.6 % (36.0-48.0); Hemoglobin 16.7 g/dL (12.0-16.0); Immature Granulocytes Abs Auto 0.11 10^3/uL (0.00-0.03); Immature Granulocytes Pct Auto 1.1 % (0.0-0.5); Lymphocytes Absolute Auto 1.6 10^3/uL (1.2-3.8); Mean Corpuscular HGB Conc 32.4 g/dL (29.9-35.2); Mean Corpuscular Hemoglobin 32.2 pg (26.7-34.0); Mean Corpuscular Volume 99.4 fL (81.0-99.0); Platelet Count 156 10^3/uL (150-450); Red Blood Count 5.19 10^6/uL (4.20-5.40); White Blood Count 9.8 10^3/uL (4.0-11.0)
[2025-05-25 09:53] LABS: Alanine Aminotransferase 34 U/L (14-59); Albumin Globulin Ratio 0.8; Albumin Level 3.3 g/dL (3.4-5.0); Alkaline Phosphatase 81 U/L (46-116); Anion Gap 9.7; Aspartate Amino Transferase 20 U/L (15-37); Blood Urea Nitrogen 14.0 mg/dL (7.0-18.0); Calcium 8.9 mg/dL (8.5-10.1); Carbon Dioxide 31.9 mmol/L (21.0-32.0); Chloride 98 mmol/L (98-107); Cholesterol 144 mg/dL (<=200); Estimated GFR (African America >60 (>=60 mL/min/1.73m^2); Estimated GFR (Non-African Ame >60 (>=60 mL/min/1.73m^2); Free T3 2.72 pg/mL (2.18-3.98); Globulin 4.1 g/dL; Glucose 173 mg/dL (74-106); HDL Cholesterol 34 mg/dL (40-60); Potassium 4.6 mmol/L (3.5-5.1); Sodium 135 mmol/L (136-145); Thyroid Stimulating Hormone 2.316 uIU/mL (0.358-3.740); Total Protein 7.4 g/dL (6.4-8.2); Triglycerides 273 mg/dL (<=150); VLDL CHOLESTEROL 54.6 mg/dL
== END 2025-05-25 07:58 | disposition home or self-care (01) ==
PROVIDERS: PCP Family Medicine; Visit Provider Nurse Practitioner Family
DX: R60.0 Localized edema (principal)
CPT/HCPCS: 36415; 80053; 80061; 83036; 84436; 84443; 84481; 85025

== ENCOUNTER 2025-05-30 07:56 | Outpatient (OUT) | payer SELFPAY ==
--- NOTE | 2025-05-30 08:00 | CA_ITS ---
Patient Name: AVRIL MORRISON MR#: [id number] : 1975 Exam Date: 05/30/2025 Ordering Doctor: DAYNA PICKARD CNP ECHOCARDIOGRAM REPORT PROCEDURE: CA ECHO DOPPLER COMPLETE INDICATIONS: Lower extremity edema, cardiac stent, smoker, COPD COMPARISON: None. DESCRIPTION: COMPLETE ECHOCARDIOGRAM Real-time transthoracic echocardiography with 2D, M-mode, spectral and color flow Doppler performed. QUALITY: Technically difficult due to poor acoustics. LEFT VENTRICLE: Normal chamber size. Mild concentric left ventricular hypertrophy. Normal systolic function. LV EF: Normal left ventricular ejection fraction, (>55%). DIASTOLIC: Normal diastolic function. ATRIAL SEPTUM: LEFT ATRIUM: Normal chamber size. RIGHT ATRIUM: Normal chamber size. RIGHT VENTRICLE: Normal chamber size. Normal systolic function. TRICUSPID VALVE: Normal mobility and thickness. No stenosis with no regurgitation. Unable to assess right-sided pressures due to lack of measurable tricuspid regurgitation. MITRAL VALVE: Normal mobility and thickness. No evidence of mitral valve stenosis. There is no mitral annular calcification. No mitral regurgitation. AORTIC VALVE: Normal trileaflet appearance. No visible sclerosis. Normal leaflet mobility. No evidence of aortic valve stenosis. No aortic regurgitation. AORTIC ROOT: Normal diameter and appearance. PULMONIC VALVE: Normal thickness and mobility. No stenosis. No regurgitation. PERICARDIUM: No evidence of pericardial effusion. IVC: Not well visualized. PLEURA: CONCLUSION: 1. Mild concentric left ventricular hypertrophy with normal systolic function. Estimated LVEF is 60%. 2. Normal right ventricular size and systolic function. 3. Normal diastolic function. 4. No significant valvular dysfunction. 5. Unable to assess right-sided pressures due to lack of measurable tricuspid regurgitation. 6. Technically difficult study with poor sound transmission. Adult Echocardiography Procedure Report Left Ventricle LVEDD (3.7 - 5.6 cm): 3.60 cm LVESD (2.2 - 4.0 cm): 3.27 cm LVIVS thickness (0.6 - 1.2 cm): 1.09 cm LVPW thickness (0.5 - 1.0 cm): 1.12 cm e': 0.09 m/s E - e': 9.53 LVOT Max Gradient: 3.60 mm[Hg] LVOT Area (cm2): 0.95 m/s Peak Velocity (LVOT): 0.95 m/s LVOT Diameter 2.24 cm Left Ventricular Ejection Fraction: 60% Left Atrium LA Volume Index (2D A2C): 22.74 ml/m2 Left Atrium Systolic Dimension: 3.30 cm Mitral Valve MV E to A Ratio: 1.04 Mitral Valve A-Wave Peak Velocity: 0.82 m/s Mitral Valve E-Wave Peak Velocity: 0.85 m/s Right Ventricle Aorta AO Root Diam: 3.40 cm Aortic Valve AoV Area (Peak Ganesh): 2.55 cm2, 2.55 cm2 Peak Velocity(Antegrade Flow): 1.47 m/s Peak Gradient(Antegrade Flow): 8.65 mm[Hg] Tricuspid Valve Pulmonic Valve Peak Gradient: 5.12 mm[Hg], 5.18 mm[Hg] Right Atrium Right Atrium Systolic Pressure: 40.34 ml, 40.34 ml Dictated by: Porter Darling M.D. on 05/30/2025 at 12:35 Approved by: Porter Darling M.D. on 05/30/2025 at 12:38
== END 2025-05-30 07:57 | disposition home or self-care (01) ==
LOC: CARD 07:56
PROVIDERS: PCP Family Medicine; Visit Provider Nurse Practitioner Family
DX: R60.0 Localized edema (principal)
CPT/HCPCS: 93306; 93970